=== PATIENT | female | born 1980 | race Asian ===

== ENCOUNTER 2020-12-06 17:19 | Outpatient (REF) | payer BC, SELFPAY ==
[2020-12-06 18:06] LABS: MANUAL DIFF FLAG NO
[2020-12-06 18:08] LABS: Basophils Percent Auto 0.3 % (0-2); Eosinophils Absolute Auto 0.2 X10*3/uL (0.0-0.4); Eosinophils Percent Auto 2.1 % (0-4); Hematocrit 31.5 % (37-47); Hemoglobin 9.6 g/dl (12.0-16.0); Imm Gran Abs Auto 0.03 X10*3/uL (0.00-0.03); Imm Gran Pct Auto 0.3 % (0.0-0.4); Lymphocytes Absolute Auto 2.2 X10*3/uL (1.2-4.9); Lymphocytes Percent Auto 24.8 % (20-40); Mean Corpuscular HGB Conc 30.5 g/dl (31.0-35.0); Mean Corpuscular Hemoglobin 24.6 pg (27.0-33.0); Mean Corpuscular Volume 80.8 fL (80-98); Mean Platelet Volume 8.8 fL (9.4-12.3); Monocytes Absolute Auto 0.5 X10*3/uL (0.1-1.2); Monocytes Percent Auto 6.1 % (2-11); Neutrophils Absolute Auto 5.9 X10*3/uL (2.0-8.3); Neutrophils Percent Auto 66.4 % (45-73); Platelet Count 370 X10*3/uL (160-400); White Blood Count 8.9 X10*3/uL (4.8-10.8)
[2020-12-06 18:33] LABS: Alanine Aminotransferase 21 U/L (0-31); Alkaline Phosphatase 93 U/L (39-117); Anion Gap 15 (12-20); Aspartate Amino Transferase 23 U/L (5-31); Bilirubin Total 0.3 mg/dL (0.0-1.0); Blood Urea Nitrogen 10 mg/dL (9-16); Calcium 8.9 mg/dL (8.4-10.2); Carbon Dioxide 23 mmol/L (22-29); Chloride 105 mmol/L (96-108); Estimated Glomerular Filt Rate > 60; Glucose Random 94 mg/dL (60-115); Potassium 4.1 mmol/L (3.3-5.1); Sodium 139 mmol/L (135-145); Total Protein 7.6 g/dL (6.5-8.0)
[2020-12-06 18:41] LABS: Rheumatoid Factor < 15.0 IU/mL (<15.0)
[2020-12-06 18:50] LABS: Thyroid Stimulating Hormone 6.09 uIU/mL (0.32-4.0)
[2020-12-06 18:54] LABS: Vitamin B12 774 pg/mL (200-900)
[2020-12-07 03:29] LABS: Estimated Average Glucose 114 mg/dL; Hemoglobin A1c % 5.6 %
[2020-12-11 15:00] LABS: ANA Pattern 2 Nuclear, Homogeneous; Anti Nuclear Antibody Pattern Nuclear, Speckled; Anti Nuclear Antibody Screen POSITIVE (NEGATIVE)
== END 2020-12-06 17:20 | disposition home or self-care (01) ==
LOC: HO.LAB 17:19
PROVIDERS: PCP Internal Medicine; Visit Provider Internal Medicine
DX: R53.83 Other fatigue (principal); I10 Essential (primary) hypertension; E03.9 Hypothyroidism, unspecified; D64.9 Anemia, unspecified; R73.03 Prediabetes; E53.8 Deficiency of other specified B group vitamins
CPT/HCPCS: 36415; 80053; 82607; 83036; 84439; 84443; 85025; 86038; 86039; 86140; 86431

== ENCOUNTER 2021-03-27 17:35 | Outpatient (REF) | payer BC, SELFPAY ==
--- NOTE | ~2021-03-27 | XR_ITS ---
EXAMINATION: XR KNEE, LEFT CLINICAL INFORMATION: Left knee pain status post fall COMPARISON: None TECHNIQUE: Three views of the left knee. FINDINGS: No fracture or subluxation. Compartmental joint spaces are maintained. No joint effusion. The soft tissues are unremarkable. XR/XR knee LT 3V IMPRESSION: Normal left knee.
== END 2021-03-27 17:36 | disposition home or self-care (01) ==
LOC: HO.XRAY 17:35
PROVIDERS: PCP Internal Medicine; Visit Provider Internal Medicine
DX: M25.562 Pain in left knee (principal); Z91.81 History of falling
CPT/HCPCS: 73562

== ENCOUNTER → 2021-04-11 08:16 | Outpatient (REF) | payer BC, SELFPAY ==
--- NOTE | 2021-04-11 08:20 | CA_ITS ---
Acquisition Time: 2021-04-11 08:36:44 Total Exercise Time: 00:04:01 Test Indications: Dyspnea Medications: THYROID MED LISINOPRIL Protocol: BORA Max HR: 169 BPM 94% of Pred: 178 BPM Max BP: 138/076 mmHG Max Work Load: 5.8 METS PT EXERCISED ON STD BORA PROTOCOL FOR 4 MIN INTO STAGE 2. MAX HR 166-93%MAX. NO CP. SOB AT MAX EXERCISE. NO EKG CHANGES. LIMITED EXERCISE TOLERANCE.CLINICALLY AND ELEC NEG. Referred By: Dante Carney Overread By: GEORGI CARNEY MD
[2021-04-11 10:51] LABS: MANUAL DIFF FLAG NO
[2021-04-11 11:43] LABS: Basophils Percent Auto 0.5 % (0-2); Eosinophils Absolute Auto 0.2 X10*3/uL (0.0-0.4); Eosinophils Percent Auto 2.1 % (0-4); Hematocrit 31.1 % (37.0-47.0); Hemoglobin 9.6 g/dl (12.0-16.0); Imm Gran Abs Auto 0.03 X10*3/uL (0.00-0.03); Imm Gran Pct Auto 0.4 % (0.0-0.4); Lymphocytes Absolute Auto 1.9 X10*3/uL (1.2-4.9); Lymphocytes Percent Auto 23.6 % (20-40); Mean Corpuscular HGB Conc 30.9 g/dl (31.0-35.0); Mean Corpuscular Hemoglobin 24.7 pg (27.0-33.0); Mean Corpuscular Volume 80.2 fL (80.0-98.0); Mean Platelet Volume 8.9 fL (9.4-12.3); Monocytes Absolute Auto 0.5 X10*3/uL (0.1-1.2); Monocytes Percent Auto 5.9 % (2-11); Neutrophils Absolute Auto 5.4 x10*3/uL (2.0-8.3); Neutrophils Percent Auto 67.5 % (45-73); Platelet Count 408 X10*3/uL (160-400); Red Blood Count 3.88 X10*6/uL (4.20-5.50); Red Cell Distribution Width 14.9 % (11.0-16.0)
[2021-04-11 12:09] LABS: Alanine Aminotransferase 30 U/L (0-31); Albumin Level 3.9 g/dL (3.5-5.0); Alkaline Phosphatase 98 U/L (39-117); Anion Gap 11 (12-20); Aspartate Amino Transferase 26 U/L (5-31); Bilirubin Total 0.3 mg/dL (0.0-1.0); Blood Urea Nitrogen 9 mg/dL (9-16); Calcium 8.8 mg/dL (8.4-10.2); Carbon Dioxide 25 mmol/L (22-29); Chloride 106 mmol/L (96-108); Cholesterol 179 mg/dL; Estimated Glomerular Filt Rate > 60; Glucose Fasting 100 mg/dL (60-99); HDL Cholesterol 49 mg/dL; Iron 35 mcg/dL (30-160); LDL Cholesterol Calculated 114 mg/dl; Percent Iron Saturation 9 % (15-50); Potassium 4.8 mmol/L (3.3-5.1); Sodium 137 mmol/L (135-145); Total Iron Binding Capacity 386 mcg/dL (228-428); Total Protein 7.3 g/dL (6.5-8.0); Triglycerides 81 mg/dL; Unsaturated Iron Binding 351 ug/dL
[2021-04-11 12:14] LABS: Free T4 (Free Thyroxine) 1.06 ng/dL (0.71-1.85); Thyroid Stimulating Hormone 0.86 uIU/mL (0.32-4.0); Vitamin D 25-OH Total 32.7 ng/mL (>30)
== END ==
LOC: HO.CARD 08:16
PROVIDERS: PCP Internal Medicine; Visit Provider Internal Medicine
DX: R06.02 Shortness of breath (principal)
CPT/HCPCS: 36415; 80053; 80061; 82306; 83540; 84439; 84443; 85025; 93017

== ENCOUNTER 2021-09-10 17:11 | Outpatient (REF) | payer BC, SELFPAY ==
[2021-09-10 17:22] LABS: MANUAL DIFF FLAG NO
[2021-09-10 17:26] LABS: Basophils Percent Auto 0.4 % (0-2); Eosinophils Absolute Auto 0.3 X10*3/uL (0.0-0.4); Eosinophils Percent Auto 2.5 % (0-4); Hematocrit 32.8 % (37.0-47.0); Hemoglobin 10.1 g/dl (12.0-16.0); Imm Gran Abs Auto 0.06 X10*3/uL (0.00-0.03); Imm Gran Pct Auto 0.6 % (0.0-0.4); Lymphocytes Percent Auto 27.9 % (20-40); Mean Corpuscular HGB Conc 30.8 g/dl (31.0-35.0); Mean Corpuscular Hemoglobin 23.6 pg (27.0-33.0); Mean Corpuscular Volume 76.6 fL (80.0-98.0); Monocytes Absolute Auto 0.6 X10*3/uL (0.1-1.2); Monocytes Percent Auto 5.8 % (2-11); Neutrophils Absolute Auto 6.7 x10*3/uL (2.0-8.3); Neutrophils Percent Auto 62.8 % (45-73); Platelet Count 383 X10*3/uL (160-400); Red Blood Count 4.28 X10*6/uL (4.20-5.50); Red Cell Distribution Width 16.5 % (11.0-16.0); White Blood Count 10.6 X10*3/uL (4.8-10.8)
[2021-09-10 17:47] LABS: Anion Gap 15 (12-20); Blood Urea Nitrogen 9 mg/dL (9-16); Calcium 9.6 mg/dL (8.4-10.2); Carbon Dioxide 27 mmol/L (22-29); Chloride 101 mmol/L (96-108); Estimated Glomerular Filt Rate > 60; Glucose Random 86 mg/dL (60-115); Iron 40 mcg/dL (30-160); Percent Iron Saturation 9 % (15-50); Potassium 3.8 mmol/L (3.3-5.1); Sodium 139 mmol/L (135-145); Total Iron Binding Capacity 444 mcg/dL (228-428); Unsaturated Iron Binding 404 ug/dL
[2021-09-10 18:07] LABS: Free T4 (Free Thyroxine) 1.17 ng/dL (0.71-1.85); Thyroid Stimulating Hormone 5.01 uIU/mL (0.32-4.0)
== END 2021-09-10 17:12 | disposition home or self-care (01) ==
LOC: HO.LAB 17:11
PROVIDERS: PCP Internal Medicine; Visit Provider Internal Medicine
DX: D64.9 Anemia, unspecified (principal); E03.9 Hypothyroidism, unspecified; I10 Essential (primary) hypertension
CPT/HCPCS: 36415; 80048; 83540; 84439; 84443; 85025

== ENCOUNTER 2021-09-22 10:41 | Outpatient (REF) | payer BC, SELFPAY ==
--- NOTE | ~2021-09-22 | MM_ITS ---
EXAMINATION: MM SCREENING DIGITAL BREAST TOMOSYNTHESIS, BILATERAL CLINICAL INFORMATION: Screening. Asymptomatic. The lifetime risk of breast cancer based on the Tyrer-Cuzick Model is 9%. COMPARISON: Mammography: 09/27/2016 (baseline). TECHNIQUE: Digital breast tomosynthesis is performed in both the craniocaudal and mediolateral oblique views along with computer-aided detection (CAD). Synthesized 2D images are generated from the tomosynthesis. FINDINGS: The breasts are almost entirely fatty (ACR BI-RADS breast composition Category a). Background stromal markings are stable. There is no interval mass or architectural abnormality. Some incidental dermal calcifications are again noted posterior 7:00 left breast. The axilla and skin contours are unremarkable. MM/MM tomosynthesis screening BI IMPRESSION: No mammographic evidence of malignancy. ASSESSMENT: BI-RADS 2: Benign RECOMMENDATION: Routine annual mammography screening. This patient's information was entered into a reminder system with a target due date for their next mammogram.
== END 2021-09-22 10:42 | disposition home or self-care (01) ==
LOC: HO.MAMMO 10:41
PROVIDERS: PCP Internal Medicine; Visit Provider Internal Medicine
DX: Z12.31 Encounter for screening mammogram for malignant neoplasm of breast (principal)
CPT/HCPCS: 77063; 77067

== ENCOUNTER 2022-04-25 15:52 | Outpatient (REF) | payer BC, SELFPAY ==
[2022-04-25 16:15] LABS: MANUAL DIFF FLAG NO
[2022-04-25 17:20] LABS: Basophils Absolute Auto 0.1 X10*3/uL (0.0-0.2); Basophils Percent Auto 0.5 % (0-2); Eosinophils Absolute Auto 0.1 X10*3/uL (0.0-0.4); Eosinophils Percent Auto 1.4 % (0-4); Hematocrit 33.4 % (37.0-47.0); Hemoglobin 10.4 g/dl (12.0-16.0); Imm Gran Abs Auto 0.03 X10*3/uL (0.00-0.03); Imm Gran Pct Auto 0.3 % (0.0-0.4); Lymphocytes Percent Auto 20.5 % (20-40); Mean Corpuscular HGB Conc 31.1 g/dl (31.0-35.0); Mean Corpuscular Hemoglobin 24.4 pg (27.0-33.0); Mean Corpuscular Volume 78.4 fL (80.0-98.0); Mean Platelet Volume 9.1 fL (9.4-12.3); Monocytes Absolute Auto 0.6 X10*3/uL (0.1-1.2); Monocytes Percent Auto 5.8 % (2-11); Neutrophils Percent Auto 71.5 % (45-73); Platelet Count 414 X10*3/uL (160-400); Red Blood Count 4.26 X10*6/uL (4.20-5.50); White Blood Count 9.8 X10*3/uL (4.8-10.8)
[2022-04-25 17:27] LABS: Estimated Average Glucose 105 mg/dL; Hemoglobin A1c % 5.3 %
[2022-04-25 18:10] LABS: Alanine Aminotransferase 25 U/L (0-31); Albumin Level 4.3 g/dL (3.5-5.0); Alkaline Phosphatase 92 U/L (39-117); Anion Gap 13 (12-20); Aspartate Amino Transferase 20 U/L (5-31); Bilirubin Total 0.5 mg/dL (0.0-1.0); Blood Urea Nitrogen 10 mg/dL (9-16); Calcium 9.5 mg/dL (8.4-10.2); Carbon Dioxide 25 mmol/L (22-29); Chloride 98 mmol/L (96-108); Estimated Glomerular Filt Rate > 60; Free T4 (Free Thyroxine) 1.34 ng/dL (0.71-1.85); Glucose Random 89 mg/dL (60-115); Sodium 132 mmol/L (135-145); Total Protein 7.8 g/dL (6.5-8.0)
[2022-04-25 18:38] LABS: Thyroid Stimulating Hormone 1.26 uIU/mL (0.32-4.0); Vitamin D 25-OH Total 36.2 ng/mL (>30)
== END 2022-04-25 15:53 | disposition home or self-care (01) ==
LOC: HO.LAB 15:52
PROVIDERS: PCP Internal Medicine; Visit Provider Internal Medicine
DX: Z00.00 Encounter for general adult medical examination without abnormal findings (principal); E03.9 Hypothyroidism, unspecified; I10 Essential (primary) hypertension; E11.9 Type 2 diabetes mellitus without complications; E55.9 Vitamin D deficiency, unspecified
CPT/HCPCS: 36415; 80053; 82306; 83036; 84439; 84443; 85025

== ENCOUNTER 2022-04-30 09:22 | Outpatient (REF) | payer BC, SELFPAY ==
[2022-04-30 10:28] LABS: Cholesterol 174 mg/dL; HDL Cholesterol 41 mg/dL; LDL Cholesterol Calculated 116 mg/dl; Triglycerides 89 mg/dL
== END 2022-04-30 09:23 | disposition home or self-care (01) ==
LOC: HO.LAB 09:22
PROVIDERS: PCP Internal Medicine; Visit Provider Internal Medicine
DX: Z00.00 Encounter for general adult medical examination without abnormal findings (principal); E03.9 Hypothyroidism, unspecified; E55.9 Vitamin D deficiency, unspecified
CPT/HCPCS: 36415; 80061

== ENCOUNTER 2022-05-21 13:41 | Outpatient (REF) | payer BC, SELFPAY ==
[2022-05-22 19:18] LABS: HPV mRNA E6/E7 rflx Not Detected (Not Detected)
== END 2022-05-21 13:42 | disposition home or self-care (01) ==
LOC: HO.LNP 13:41
PROVIDERS: PCP Internal Medicine; Visit Provider Advanced Practice Midwife
DX: Z01.419 Encounter for gynecological examination (general) (routine) without abnormal findings (principal); Z11.51 Encounter for screening for human papillomavirus (HPV)
CPT/HCPCS: 87624; 88142

== ENCOUNTER 2022-08-21 10:56 | Outpatient (REF) | payer BC, SELFPAY ==
--- NOTE | ~2022-08-21 | US_ITS ---
EXAMINATION: US ABDOMEN COMPLETE CLINICAL INFORMATION: Right upper quadrant abdominal pain. COMPARISON: None available. TECHNIQUE: Real-time imaging of the abdominal viscera. FINDINGS: PANCREAS: Normal. ABDOMINAL AORTA: The proximal, mid, and distal segments are normal in caliber. INFERIOR VENA CAVA: Visualized portions are normal. LIVER: There are echogenic vascular calcifications seen. Otherwise is homogeneous echotexture of the liver. The liver is normal in size. The liver contour is normal. No focal hepatic lesion. There is no intrahepatic biliary duct dilatation seen. GALLBLADDER: Gallbladder wall thickness measures 0.34 cm. The gallbladder is physiologically distended. Multiple mobile gallstones are present. No evidence of gallbladder wall thickening or pericholecystic fluid. There is mild gallbladder wall tenderness. COMMON BILE DUCT: Normal in caliber measuring 0.6 cm in diameter. RIGHT KIDNEY: There are multiple echogenic foci non shadowing and non twinkle. No hydronephrosis. No renal calculi or focal parenchymal lesions. The kidney measures 10.6 cm in maximum dimension. LEFT KIDNEY: There are multiple echogenic foci non shadowing and non twinkle. No hydronephrosis. No renal calculi or focal parenchymal lesions. The kidney measures 11.3 cm in maximum dimension. SPLEEN: Normal. The spleen measures 9.8 cm in maximum dimension. FREE FLUID: None. US/US abdomen complete IMPRESSION: 1. Cholelithiasis with mild gallbladder wall thickening and tenderness in right upper quadrant suggestive of cholecystitis. Correlate with HIDA study and clinical exam. 2. Bilateral multiple echogenic foci non shadowing and non twinkle artifact in both kidneys. No echogenic stones or hydronephrosis. 3. Rest of the abdominal ultrasound is unremarkable.
== END 2022-08-21 10:57 | disposition home or self-care (01) ==
LOC: HO.HMGCX 10:56
PROVIDERS: Visit Provider Internal Medicine
DX: R10.11 Right upper quadrant pain (principal)
CPT/HCPCS: 76700

== ENCOUNTER 2022-09-02 10:03 | Outpatient (REF) | payer BC, SELFPAY ==
[2022-09-02 11:01] LABS: MANUAL DIFF FLAG NO
[2022-09-02 11:45] LABS: Basophils Percent Auto 0.4 % (0-2); Eosinophils Absolute Auto 0.4 X10*3/uL (0.0-0.4); Eosinophils Percent Auto 4.8 % (0-4); Hematocrit 36.1 % (37.0-47.0); Hemoglobin 11.3 g/dl (12.0-16.0); Imm Gran Abs Auto 0.02 X10*3/uL (0.00-0.03); Imm Gran Pct Auto 0.2 % (0.0-0.4); Lymphocytes Absolute Auto 1.9 X10*3/uL (1.2-4.9); Lymphocytes Percent Auto 20.6 % (20-40); Mean Corpuscular HGB Conc 31.3 g/dl (31.0-35.0); Mean Corpuscular Volume 79.9 fL (80.0-98.0); Mean Platelet Volume 8.5 fL (9.4-12.3); Monocytes Absolute Auto 0.4 X10*3/uL (0.1-1.2); Monocytes Percent Auto 4.5 % (2-11); Neutrophils Absolute Auto 6.2 x10*3/uL (2.0-8.3); Neutrophils Percent Auto 69.5 % (45-73); Platelet Count 406 X10*3/uL (160-400); Red Blood Count 4.52 X10*6/uL (4.20-5.50); Red Cell Distribution Width 14.2 % (11.0-16.0)
[2022-09-02 12:14] LABS: Alanine Aminotransferase 17 U/L (0-31); Albumin Level 4.1 g/dL (3.5-5.0); Alkaline Phosphatase 85 U/L (39-117); Anion Gap 12 (12-20); Aspartate Amino Transferase 16 U/L (5-31); Bilirubin Direct 0.1 mg/dL (0.0-0.5); Bilirubin Total 0.5 mg/dL (0.0-1.0); Carbon Dioxide 28 mmol/L (22-29); Chloride 101 mmol/L (96-108); Potassium 4.1 mmol/L (3.3-5.1); Sodium 137 mmol/L (135-145); Total Protein 7.4 g/dL (6.5-8.0)
== END 2022-09-02 10:04 | disposition home or self-care (01) ==
LOC: HO.LAB 10:03
PROVIDERS: PCP Internal Medicine; Referring Provider Internal Medicine; Visit Provider Surgery
DX: K80.50 Calculus of bile duct without cholangitis or cholecystitis without obstruction (principal); Z79.899 Other long term (current) drug therapy
CPT/HCPCS: 36415; 80051; 80076; 85025

== ENCOUNTER 2022-09-06 10:51 | Day surgery (SDC) | payer BC, SELFPAY ==
--- NOTE | 2022-09-05 11:55 | HO.ANESPROP2 ---
Documented by User: Genevieve Landry NP 09/05/22 11:56 HPI - Anesthesia Eval Consult details Narrative: 42yo F for Cholecystectomy Laparoscopic poss open PMFSH Active Problems Active Problems: All Active Problems (Updated 06/04/22 @ 10:31 by Niurka Pinedo CNM) Biliary colic (Acute) Cervical cancer screening (Acute) Well woman exam with routine gynecological exam (Acute) Family history of malignant neoplasm of ovary in first degree relative (Acute) Abdominal bloating (Acute) Pelvic pain (Acute) Past Medical History Medical History (Updated 06/04/22 @ 10:31 by Niurka Pinedo CNM) Hypertension Family History Family History (Updated 05/21/22 @ 13:52 by SHARIF Gleason) Mother Hypertension Hypercholesterolemia Migraine Sister Ovarian cancer Surgical History Surgical History (Updated 09/06/22 @ 11:01 by Ruthie Moreland) H/O section Social History Social History (Updated 09/02/22 @ 10:23 by SHARIF Choudhary) Alcohol intake: current Alcohol intake frequency: does not drink Patient Tobacco Use Status: Never used Tobacco Use of substances other than those prescribed or required for medical reasons: No Are you DNR?: No Advance Directives: No Advance Directives Information Provided: Yes Meds Allergies Allergy/AdvReac Type Severity Reaction Status Date / Time No Known Allergies Allergy Verified 09/06/22 11:02 Home Medications Medication Instructions Recorded Confirmed Last Taken Type hydrochlorothiazide 25 mg tablet 25 mg PO DAILY 05/21/22 09/06/22 Unknown History levothyroxine 88 mcg tablet 88 mcg PO DAILY 05/21/22 09/06/22 Unknown History Exam Exam Date and Time: September 05, 2022 1155 Pertinent Lab Results Pertinent Lab Results: Laboratory Tests 04/25/22 09/02/22 09/02/22 16:13 11:00 11:00 WBC 9.0 Hgb 11.3 L Hct 36.1 L Plt Count 406 H Sodium 137 Potassium 4.1 Chloride 101 Carbon Dioxide 28 BUN 10 Creatinine 0.86 Narrative Narrative: Exercise stress 2020 Protocol: BORA ? Max HR: 169 BPM? 94% of? Pred: 178 BPM Max BP: 138/076 mmHG Max Work Load: 5.8 METS ? PT EXERCISED ON STD BORA PROTOCOL FOR 4 MIN INTO STAGE 2. MAX HR ? 166-93%MAX. NO CP. SOB AT MAX EXERCISE. ?NO EKG CHANGES. LIMITED EXERCISE TOLERANCE.CLINICALLY AND ELEC NEG. Assessment and Plan Assessment Anesthesia Assessment: Chart Reviewed Documented by User: Billy Hedrick MD 09/06/22 11:41 PMFSH Past Medical History Medical History (Updated 06/04/22 @ 10:31 by Niurka Pinedo CNM) Hypertension Family History Family History (Updated 05/21/22 @ 13:52 by Alistair Villalobos Alejandro) Mother Hypertension Hypercholesterolemia Migraine Sister Ovarian cancer Family history of problems with anesthesia: No Surgical History Surgical History (Updated 09/06/22 @ 11:01 by Ruthie Moreland) H/O section History of Problems with Anesthesia: No Social History Social History (Updated 09/02/22 @ 10:23 by Gwen Cox Alejandro) Alcohol intake: current Alcohol intake frequency: does not drink Patient Tobacco Use Status: Never used Tobacco Use of substances other than those prescribed or required for medical reasons: No Are you DNR?: No Advance Directives: No Advance Directives Information Provided: Yes Meds Allergies Allergy/AdvReac Type Severity Reaction Status Date / Time No Known Allergies Allergy Verified 09/06/22 11:02 Home Medications Medication Instructions Recorded Confirmed Last Taken Type hydrochlorothiazide 25 mg tablet 25 mg PO DAILY 05/21/22 09/06/22 Unknown History levothyroxine 88 mcg tablet 88 mcg PO DAILY 05/21/22 09/06/22 Unknown History Exam Airway Mallampati Class: II TM Dist: >3cm Neck ROM: Full Heart: rrr Lungs: cta Assessment and Plan Assessment Anesthesia Assessment: Anesthesia Plan Discussed Final Anesthetic Review Family History of Problems with Anesthesia: No History of Problems with Anesthesia: No NPO: Yes ASA Class: II Final Preanesthetic Review: No Changes in Pt Med Stat, Meds/Allgs Chart Reviewed, Consent Obtained/Reviewed and Anes Risks/Benef Reviewed Patient Risk: Low Procedure Risk: Intermediate Anesthetic Plan Anesthetic Plan: GA Disposition: Standard PACU
--- NOTE | 2022-09-05 13:58 | MHC.SHP ---
Pre-Procedural Eval Section A Date of Service: 09/06/22 The patient is an INPATIENT: No Changes since office visit: No Cold of Flu in the past 2 weeks, No New Medical Problems, No Changes in Medication and No Patient answered all questions The History & Physical has been completed within 30 days and I have reviewed it.: Yes Section B Chief Complaint: Calculus of bile duct without cholangitis or magdy Allergies: Allergies Allergy/AdvReac Type Severity Reaction Status Date / Time No Known Allergies Allergy Verified 09/02/22 10:22 Plan I have reviewed the history and physical and performed a pertinent physical examination on my patient. No changes have occurred unless specified. Time Spent With Patient Time: Total time managing care of this patient today ____ minutes.
[2022-09-06] VITALS (10 sets, daily range): BP systolic 115–130; BP diastolic 66–79; PULSE 87–106; RESP 14–16; TEMP 36.6–37; O2SAT 95–99; BMI 27.6
[2022-09-06] MEDS: Lactated Ringers 1,000 ML 100 ML IVCONT (11:29)
[2022-09-06 11:30] LABS: UPreg QC Valid YES; Urine Pregnancy NEGATIVE (NEGATIVE)
--- NOTE | 2022-09-06 13:42 | W.PM.OPN ---
Operative Note Operative Note Date of Service: 09/06/22 Narrative: Preoperative diagnosis: [] Recurrence biliary colic Postop diagnosis: [] Same Procedure [] laparoscopic cholecystectomy Surgeon: [] Brendan Preschool Teacher'S Assistant: [] elijah Sánchez Type of Anesthesia: [] General Indication for surgery: [] Symptomatic gallstones Findings: [] Corpulent abdomen. Dense and extensive omental adhesions to the gallbladder. Patient is brought to the operating room, placed on the operating table in the supine position, and after an adequate level of general anesthesia was induced, the patient's abdomen was prepped and draped in usual sterile fashion. Using a supraumbilical curvilinear incision, Rodriguez technique was used to insufflate the abdominal cavity to 15 mm of CO2. Upper midline and right sub costal ports were placed under direct laparoscopic view, and the patient was placed in reverse Trendelenburg position, tilted to the left. Dense omental adhesions were taken off the gallbladder and the liver. Hilum was then approached after the gallbladder was retracted superiorly and laterally. Common bile duct was identified and preserved throughout the procedure. Cystic artery and cystic duct or each identified, circumferentially skeletonized , and each traced directly into the gallbladder and critical view obtained. Each was clipped proximally x2, distally x1, and transected. Gallbladder which was moderately intrahepatic was cauterized from the gallbladder fossa using electro Bovie. Specimen was placed in an Endo-Catch bag, and retrieved through the umbilical port. Abdominal cavity was copiously irrigated, and secured hemostasis. All ports removed under direct laparoscopic view. Wounds were closed in the following manner; umbilical wound has fascia reapproximated using interrupted 0 Vicryl sutures. Skin was were closed using subcuticular 4-0 Vicryl sutures followed by Steri-Strips and sterile dressings. Wounds were infiltrated with a combination of 0.5% Marcaine and 1% lidocaine. Sponge, needle, and instrument counts were reported to be correct. Patient tolerated the procedure well and emerged from anesthesia stable condition. EBL minimal
[2022-09-06] MEDS: fentaNYL citrate/PF 100 MCG/2 ML VIAL 25 MCG IVPUSH ×4 (13:58→14:13)
[2022-09-06] MEDS: oxyCODONE HCl Immed Release 5 MG TABLET PO (14:01)
--- NOTE | 2022-09-06 14:16 | P.CONAN_ITS ---
HPI - Anesthesia Eval Consult details Narrative: right bka PMFSH Active Problems Active Problems: All Active Problems (Updated 09/06/22 @ 11:01 by Ruthie Moreland) Pelvic pain (Acute) Abdominal bloating (Acute) Family history of malignant neoplasm of ovary in first degree relative (Acute) Well woman exam with routine gynecological exam (Acute) Cervical cancer screening (Acute) Biliary colic (Acute) Past Medical History Medical History (Updated 06/04/22 @ 10:31 by Niurka Pinedo CNM) Hypertension Family History Family History (Updated 05/21/22 @ 13:52 by Alistair Villalobos [facility]) Mother Hypertension Hypercholesterolemia Migraine Sister Ovarian cancer Family history of problems with anesthesia: No Surgical History Surgical History (Updated 09/06/22 @ 11:01 by Ruthie Moreland) H/O section History of Problems with Anesthesia: No Social History Social History (Updated 09/02/22 @ 10:23 by Gwen Cox [facility]) Alcohol intake: current Alcohol intake frequency: does not drink Patient Tobacco Use Status: Never used Tobacco Use of substances other than those prescribed or required for medical reasons: No Are you DNR?: No Advance Directives: No Advance Directives Information Provided: Yes Meds Allergies Allergy/AdvReac Type Severity Reaction Status Date / Time No Known Allergies Allergy Verified 09/06/22 11:02 Active Medications: Current Medications Lactated Ringer's (Lr) 1,000 mls @ 100 mls/hr IVCONT .Q10H DENNIS Last Admin: 09/06/22 11:29 Dose: 100 mls/hr Home Medications Medication Instructions Recorded Confirmed Last Taken Type hydrochlorothiazide 25 mg tablet 25 mg PO DAILY 05/21/22 09/06/22 Unknown His tory levothyroxine 88 mcg tablet 88 mcg PO DAILY 05/21/22 09/06/22 Unknown History Exam Exam Date and Time: September 06, 2022 1416 Height,Weight and Vital Signs: Height 5 ft 4 in Weight 73.028 kg Last Vital Signs Temp 98.6 F 09/06/22 13:53 Pulse 93 09/06/22 14:13 Resp 16 09/06/22 14:13 BP 115/66 09/06/22 14:08 Pulse Ox 95 09/06/22 14:13 O2 Del Method Room Air 09/06/22 14:13 Pertinent Lab Results Pertinent Lab Results: Laboratory Tests 09/06/22 11:00 Urine Test NEGATIVE Airway Mallampati Class: II TM Dist: >3cm Neck ROM: Limited Heart: rrr Lungs: cta Assessment and Plan Assessment Anesthesia Assessment: Anesthesia Plan Discussed and Chart Reviewed Final Anesthetic Review Family History of Problems with Anesthesia: No History of Problems with Anesthesia: No NPO: Yes ASA Class: IV Final Preanesthetic Review: No Changes in Pt Med Stat and Anes Risks/Benef Reviewed Patient Risk: High Procedure Risk: Intermediate Anesthetic Plan Anesthetic Plan: Regional Block and Agree w/ Assess. and Plan Disposition: Standard PACU
== END 2022-09-06 14:45 | disposition home or self-care (01) ==
PROVIDERS: Nurse Practitioner; PCP Internal Medicine; Visit Provider Surgery
PROC: 0FT44ZZ Resection of Gallbladder, Percutaneous Endoscopic Approach (ICD-10-PCS; CPT 47562; principal; 2022-09-06 12:20)
DX: K80.10 Calculus of gallbladder with chronic cholecystitis without obstruction (principal); K82.8 Other specified diseases of gallbladder; I10 Essential (primary) hypertension; Z79.899 Other long term (current) drug therapy
CPT/HCPCS: 47562; 49329; 81025; 88304; J0131; J0690; J1100; J1885; J2405; J2550; J3010

== ENCOUNTER → 2022-09-12 10:32 | Outpatient (BNVA) | payer BC, SELFPAY | PROVIDERS: PCP Internal Medicine; Visit Provider Surgery | DX: Z13.89 Encounter for screening for other disorder (principal) ==

== ENCOUNTER → 2022-10-01 12:54 | Outpatient (BNVA) | payer BC, SELFPAY | PROVIDERS: PCP Internal Medicine; Referring Provider Internal Medicine; Visit Provider Surgery ==

== ENCOUNTER 2023-01-23 16:45 | Outpatient (REF) | payer BC, SELFPAY ==
[2023-01-23 17:03] LABS: MANUAL DIFF FLAG NO
[2023-01-23 18:12] LABS: Basophils Absolute Auto 0.1 X10*3/uL (0.0-0.2); Basophils Percent Auto 1.1 % (0-2); Eosinophils Absolute Auto 0.1 X10*3/uL (0.0-0.4); Hemoglobin 9.9 g/dl (12.0-16.0); Imm Gran Abs Auto 0.02 X10*3/uL (0.00-0.03); Imm Gran Pct Auto 0.3 % (0.0-0.4); Lymphocytes Absolute Auto 1.8 X10*3/uL (1.2-4.9); Lymphocytes Percent Auto 27.4 % (20-40); Mean Corpuscular HGB Conc 31.9 g/dl (31.0-35.0); Mean Corpuscular Hemoglobin 26.9 pg (27.0-33.0); Mean Corpuscular Volume 84.2 fL (80.0-98.0); Mean Platelet Volume 9.3 fL (9.4-12.3); Monocytes Absolute Auto 0.5 X10*3/uL (0.1-1.2); Monocytes Percent Auto 7.4 % (2-11); Neutrophils Absolute Auto 4.1 x10*3/uL (2.0-8.3); Neutrophils Percent Auto 61.8 % (45-73); Platelet Count 328 X10*3/uL (160-400); Red Blood Count 3.68 X10*6/uL (4.20-5.50); Red Cell Distribution Width 13.8 % (11.0-16.0); White Blood Count 6.6 X10*3/uL (4.8-10.8)
[2023-01-23 18:30] LABS: Alanine Aminotransferase 11 U/L (0-31); Albumin Level 3.8 g/dL (3.5-5.0); Alkaline Phosphatase 56 U/L (39-117); Anion Gap 12 (12-20); Aspartate Amino Transferase 17 U/L (5-31); Bilirubin Total 0.4 mg/dL (0.0-1.0); Blood Urea Nitrogen 7 mg/dL (9-16); Calcium 9.2 mg/dL (8.4-10.2); Carbon Dioxide 23 mmol/L (22-29); Chloride 107 mmol/L (96-108); Estimated Glomerular Filt Rate > 60; Glucose Random 78 mg/dL (60-115); Potassium 3.9 mmol/L (3.3-5.1); Sodium 138 mmol/L (135-145); Total Protein 6.9 g/dL (6.5-8.0)
[2023-01-23 18:47] LABS: Thyroid Stimulating Hormone 1.72 uIU/mL (0.32-4.0)
== END 2023-01-23 16:46 | disposition home or self-care (01) ==
LOC: HO.LAB 16:45
PROVIDERS: PCP Internal Medicine; Visit Provider Internal Medicine
DX: E03.9 Hypothyroidism, unspecified (principal)
CPT/HCPCS: 36415; 80053; 84439; 84443; 85025

== ENCOUNTER 2023-01-29 16:50 | Outpatient (REF) | payer BC, SELFPAY ==
[2023-01-29 17:03] LABS: MANUAL DIFF FLAG NO
[2023-01-29 17:42] LABS: Basophils Absolute Auto 0.1 X10*3/uL (0.0-0.2); Basophils Percent Auto 0.7 % (0-2); Eosinophils Absolute Auto 0.1 X10*3/uL (0.0-0.4); Eosinophils Percent Auto 1.9 % (0-4); Hemoglobin 10.8 g/dl (12.0-16.0); Imm Gran Abs Auto 0.03 X10*3/uL (0.00-0.03); Imm Gran Pct Auto 0.4 % (0.0-0.4); Lymphocytes Absolute Auto 2.3 X10*3/uL (1.2-4.9); Mean Corpuscular HGB Conc 31.8 g/dl (31.0-35.0); Mean Corpuscular Hemoglobin 26.6 pg (27.0-33.0); Mean Corpuscular Volume 83.7 fL (80.0-98.0); Mean Platelet Volume 9.3 fL (9.4-12.3); Monocytes Absolute Auto 0.4 X10*3/uL (0.1-1.2); Platelet Count 325 X10*3/uL (160-400); Red Blood Count 4.06 X10*6/uL (4.20-5.50); Red Cell Distribution Width 13.8 % (11.0-16.0)
[2023-01-29 18:52] LABS: Cholesterol 164 mg/dL (<200); Iron 73 mcg/dL (30-160); Percent Iron Saturation 24 % (15-50); Total Iron Binding Capacity 301 mcg/dL (228-428); Unsaturated Iron Binding 228 ug/dL
[2023-01-29 19:16] LABS: Vitamin B12 1836 pg/mL (200-900)
== END 2023-01-29 16:51 | disposition home or self-care (01) ==
LOC: HO.LAB 16:50
PROVIDERS: PCP Internal Medicine; Visit Provider Internal Medicine
DX: D64.9 Anemia, unspecified (principal); E03.9 Hypothyroidism, unspecified; R63.4 Abnormal weight loss
CPT/HCPCS: 36415; 82465; 82607; 83540; 85025

== ENCOUNTER 2023-07-18 09:42 | Outpatient (REF) | payer BC, SELFPAY ==
[2023-07-18 09:54] LABS: MANUAL DIFF FLAG NO
[2023-07-18 10:49] LABS: Estimated Average Glucose 94 mg/dL; Hemoglobin A1c % 4.9 % (<6.0)
[2023-07-18 10:50] LABS: Basophils Percent Auto 0.9 % (0-2); Eosinophils Absolute Auto 0.2 X10*3/uL (0.0-0.4); Eosinophils Percent Auto 3.7 % (0-4); Hematocrit 32.3 % (37.0-47.0); Hemoglobin 10.3 g/dl (12.0-16.0); Imm Gran Abs Auto 0.01 X10*3/uL (0.00-0.03); Imm Gran Pct Auto 0.2 % (0.0-0.4); Lymphocytes Absolute Auto 1.6 X10*3/uL (1.2-4.9); Lymphocytes Percent Auto 33.9 % (20-40); Mean Corpuscular HGB Conc 31.9 g/dl (31.0-35.0); Mean Corpuscular Hemoglobin 27.7 pg (27.0-33.0); Mean Corpuscular Volume 86.8 fL (80.0-98.0); Mean Platelet Volume 9.4 fL (9.4-12.3); Monocytes Absolute Auto 0.3 X10*3/uL (0.1-1.2); Monocytes Percent Auto 6.3 % (2-11); Neutrophils Absolute Auto 2.5 x10*3/uL (2.0-8.3); Platelet Count 287 X10*3/uL (160-400); Red Blood Count 3.72 X10*6/uL (4.20-5.50); Red Cell Distribution Width 13.1 % (11.0-16.0); White Blood Count 4.6 X10*3/uL (4.8-10.8)
[2023-07-18 11:23] LABS: Alanine Aminotransferase 22 U/L (0-31); Albumin Level 3.9 g/dL (3.5-5.0); Alkaline Phosphatase 53 U/L (39-117); Anion Gap 12 (12-20); Aspartate Amino Transferase 21 U/L (5-31); Bilirubin Total 0.3 mg/dL (0.0-1.0); Blood Urea Nitrogen 13 mg/dL (9-16); Calcium 9.1 mg/dL (8.4-10.2); Carbon Dioxide 26 mmol/L (22-29); Chloride 107 mmol/L (96-108); Cholesterol 174 mg/dL (<200); Estimated Glomerular Filt Rate > 60; Glucose Fasting 84 mg/dL (60-99); HDL Cholesterol 64 mg/dL (>40); LDL Cholesterol Calculated 102 mg/dL (<100); Sodium 141 mmol/L (135-145); Total Protein 7.3 g/dL (6.5-8.0); Triglycerides 41 mg/dL (<150)
[2023-07-18 11:48] LABS: Thyroid Stimulating Hormone 2.28 uIU/mL (0.32-4.0)
== END 2023-07-18 09:43 | disposition home or self-care (01) ==
LOC: HO.LAB 09:42
PROVIDERS: PCP Internal Medicine; Visit Provider Internal Medicine
DX: I10 Essential (primary) hypertension (principal); E03.9 Hypothyroidism, unspecified; D64.9 Anemia, unspecified
CPT/HCPCS: 36415; 80053; 80061; 83036; 84439; 84443; 85025

== ENCOUNTER 2024-10-25 09:28 | Outpatient (AMB) | payer BC, SELFPAY ==
--- NOTE | 2024-10-25 09:27 | A.OFFPC_ITS ---
Vital Signs 10/25/24 09:31 Height 5 ft 4 in Weight 152 lb BMI 26.1 BP 122/80 Blood Pressure Location Lt brachial Position Sitting Pulse 88 Pulse Source Pulse Oximeter Temp 98.7 F Temp Source Axillary Pulse Oximetry (%) 99 Oxygen Delivery Method Room Air Intake Visit Reasons: Annual - see comments Integrated Logistics Support Manager Required: No Accompanied by: Self / Same As Patient Allergies No Known Allergies Allergy (Verified 10/25/24 09:28) Tobacco use date assessed: 10/25/24 Dental Screening Dental Screen Date: 10/25/24 Did you have a dental visit in the last 12 months?: No Did you have a dental problem in the last 6 months where you did not have access to dental care?: No PFSH Medical History (Updated 10/25/24 @ 10:12 by Darell Gamboa MD) Obesity Hypertension Surgical History History of laparoscopic cholecystectomy (09/06/22) H/O section Family History (Updated 10/25/24 @ 09:37 by Consuelo Mei MA) Mother Hypertension Hypercholesterolemia Migraine Sister Ovarian cancer Social History Housing: House Alcohol intake: current Alcohol intake frequency: does not drink Patient Tobacco Use Status: Never used Tobacco e-Cigarette/Vaping Use: Never Used service: No Current occupational status: employed Cognitive needs: No Hearing needs: No Vision needs: Yes (reading glassses) Female Reproductive History Menstrual Age of Menarche: 12 Questionnaire PHQ-9 Over the last 2 weeks, how often have you been bothered by any of the following problems? 1. Little interest or pleasure in doing things: not at all 2. Feeling down, depressed, or hopeless: not at all 3. Trouble falling or staying asleep, or sleeping too much: not at all 4. Feeling tired or having little energy: not at all 5. Poor appetite or overeating: not at all 6. Feeling bad about yourself - or that you are a failure or have let yourself or your family down: not at all 7. Trouble concentrating on things, such as reading the newspaper or watching television: not at all 8. Moving or speaking so slowly that other people could have noticed. Or the opposite - being so fidgety or restless that you have been moving around a lot more than usual: not at all Source: Developed by Drs. Apolinar Butler, Manuel Parra and colleagues, with an educational hunter from [employer]. Thrive Questionnaire Date Thrive assessed: 10/25/24 I am a: Patient Within the past 12 months, did the food you bought not last and you didn't have the money to get more?: Never true Within the past 12 months, did you worry whether your food would run out before you got money to buy more?: Never true Do you have trouble paying for medicines?: No Do you have trouble getting transportation to medical appointments?: No Do you have trouble paying your heating and electricity bill?: No Do you have trouble taking care of your child, family member or friend?: No Do you have trouble with day-to-day activities such as bathing, preparing meals, shopping, managing finances, etc.?: No Are you currently unemployed and looking for a job?: No Are you interested in more education?: No THRIVE Score: 0 AUDIT C Alcohol Use Questionnaire (AUDIT-C) 1. How often do you have a drink containing alcohol?: Monthly or less 2. How many drinks containing alcohol do you have on a typical day when you are drinking?: 1 or 2 3. How often do you have six or more drinks on one occasion?: Less than monthly Total Score: 2 ADAIR-7 AMB Questionnaire ADAIR-7 Date ADAIR - 7 assessed: 10/25/24 Feeling nervous, anxious, or on edge: 0 = Not at all Not being able to stop or control worryin = Not at all Worrying too much about different things: 0 = Not at all Trouble relaxin = Not at all Being so restless that it is hard to sit still: 0 = Not at all Becoming easily annoyed or irritable: 0 = Not at all Feeling afraid as if something awful might happen: 0 = Not at all Total ADAIR-7 score (0-4 normal; 5-9 mild; 10-14 moderate; 15-21 severe): 0 Source: Developed by Drs. Apolinar Butler, Manuel Parra and colleagues, with an educational hunter from [employer]. Physical exam (Primary Care) Vital Signs: Last Vital Signs Temp 98.7 F 10/25/24 09:31 Pulse 88 10/25/24 09:31 BP 122/80 10/25/24 09:31 Pulse Ox 99 10/25/24 09:31 Oxygen Delivery Method Room Air 10/25/24 09:31 BMI result Body Mass Index 26.1 Tobacco/Smoking Status: Tobacco use Status Tobacco use date assessed 10/25/24 10/25/24 09:29 Patient Tobacco Use Status Never used Tobacco 10/25/24 09:29 e-Cigarette/Vaping Use Never Used 10/25/24 09:29 Thrive Assessment: Date of Thrive Assessment Date Thrive assessed 10/25/24 10/25/24 09:29 Coding Level of Care Code New Pt Level 4 (91608) Complex EM visit Add On G2211 Diagnoses Hypertension I10 Annual physical exam Z00.00 Obesity E66.9 Assessment & Plan Assessment & Plan (1) Hypertension: Code(s): I10 - Essential (primary) hypertension Category: Medical Plan: BP in range, continue meds at same dosage (2) Annual physical exam: Code(s): Z00.00 - Encounter for general adult medical examination without abnormal findings Plan: BW, Mammogram, Cologaurd and Audio Visual Tech appt ordered. (3) Obesity: Code(s): E66.9 - Obesity, unspecified Category: Medical Plan: Patient taking GLP-1 analogue from elsewhere. Orders: Orders Thyroid Stimulating Hormone Today I10 - Essential (primary) hypertension UA and rflx microscopic Today I10 - Essential (primary) hypertension Liver Panel Today I10 - Essential (primary) hypertension Basic Metabolic Panel Today I10 - Essential (primary) hypertension Vitamin B12 and Folate Today I10 - Essential (primary) hypertension Vitamin D 25-OH (D2 and D3) Today I10 - Essential (primary) hypertension Lipid Panel Today I10 - Essential (primary) hypertension Complete Blood Count no Diff Today I10 - Essential (primary) hypertension MM screening mammo BI Today Z12.31 - Encounter for screening mammogram for malignant neoplasm of breast Referrals Cologuard Test Z12.11 - Encounter for screening for malignant neoplasm of colon [facility] Referral Z12.4 - Encounter for screening for malignant neoplasm of cervix
[2024-10-25 09:31] VITALS: BP 122/80; PULSE 88; TEMP 37.1; O2SAT 99; BMI 26.1
== END 2024-10-25 10:27 | disposition home or self-care (01) ==
LOC: HO.HMCHD 09:28
PROVIDERS: PCP Internal Medicine; Visit Provider Internal Medicine
DX: I10 Essential (primary) hypertension (principal); Z00.00 Encounter for general adult medical examination without abnormal findings; E66.9 Obesity, unspecified

== ENCOUNTER → 2024-10-25 09:28 | Outpatient (BNVA) | payer BC, SELFPAY | PROVIDERS: PCP Internal Medicine; Visit Provider Internal Medicine ==

== ENCOUNTER 2024-10-25 10:32 | Outpatient (REF) | payer BC, SELFPAY ==
[2024-10-25 12:20] LABS: Hematocrit 35.2 % (37.0-47.0); Hemoglobin 11.4 g/dl (12.0-16.0); Mean Corpuscular HGB Conc 32.4 g/dl (31.0-35.0); Mean Corpuscular Hemoglobin 25.6 pg (27.0-33.0); Mean Corpuscular Volume 78.9 fL (80.0-98.0); Mean Platelet Volume 9.3 fL (9.4-12.3); Platelet Count 312 X10*3/uL (160-400); Red Blood Count 4.46 X10*6/uL (4.20-5.50); Red Cell Distribution Width 14.6 % (11.0-16.0)
[2024-10-25 12:55] LABS: Appearance Urine Clear; Color Urine Yellow; Glucose Urine UA Negative (Negative); Leukocyte Esterase Urine Negative (Negative); Nitrite Urine Negative (Negative); Urine Blood Negative (Negative); Urine Ketones Negative (Negative); Urine Protein Negative (Neg-Trace)
[2024-10-25 12:58] LABS: Alanine Aminotransferase 13 U/L (0-31); Albumin Level 4.6 g/dL (3.5-5.0); Alkaline Phosphatase 61 U/L (39-117); Anion Gap 12 (12-20); Aspartate Amino Transferase 22 U/L (5-31); Bilirubin Direct 0.2 mg/dL (0.0-0.5); Bilirubin Total 0.3 mg/dL (0.0-1.0); Blood Urea Nitrogen 10 mg/dL (9-16); Calcium 9.2 mg/dL (8.4-10.2); Carbon Dioxide 26 mmol/L (22-29); Chloride 102 mmol/L (96-108); Cholesterol 204 mg/dL (<200); Estimated Glomerular Filt Rate > 60; Glucose Random 88 mg/dL (60-115); HDL Cholesterol 76 mg/dL (>40); LDL Cholesterol Calculated 119 mg/dL (<100); Potassium 3.7 mmol/L (3.3-5.1); Sodium 136 mmol/L (135-145); Total Protein 8.2 g/dL (6.5-8.0); Triglycerides 49 mg/dL (<150)
[2024-10-25 13:15] LABS: Thyroid Stimulating Hormone 1.16 uIU/mL (0.32-4.0)
[2024-10-25 13:20] LABS: Folate 6.4 ng/mL (> or = 4.0); Vitamin B12 975 pg/mL (200-900)
[2024-10-29 15:23] LABS: Vitamin D 25-OH, D2 <4 ng/mL; Vitamin D 25-OH, D3 70 ng/mL; Vitamin D 25-OH, Total 70 ng/mL (30-100)
== END 2024-10-25 10:33 | disposition home or self-care (01) ==
LOC: HO.10HDL 10:32
PROVIDERS: Visit Provider Internal Medicine
DX: I10 Essential (primary) hypertension (principal)
CPT/HCPCS: 36415; 80048; 80061; 80076; 81003; 82306; 82607; 82746; 84443; 85027

== ENCOUNTER 2024-11-25 08:57 | Outpatient (REF) | payer BC, SELFPAY ==
--- OUTSIDE RECORDS SUMMARY | 2024-11-25 09:09 | XMS_ITS | Continuity of Care Document ---
Author Organization [facility] [address] [place] [address] Phone [phone] Social History Type Date Description Comments Sex Female Sex Unknown Medical Devices Description No Information Available Encounters Description No Information Available Assessments Description No Information Available Plan of Treatment No Information Available Functional Status Description No Information Available Mental Status Description No Information Available Referrals Description No Information Available
--- OUTSIDE RECORDS SUMMARY | 2024-11-25 09:09 | XMS_ITS ---
Author Name [facility] Organization Unknown History of Medication Use Medication Directions Dispensed Refills Start Date End Date Status bupropion HCl XL 150 mg 24 hr tablet, extended release Take 1 tablet every day by oral route in the morning. 5 active Mounjaro 10 mg/0.5 mL subcutaneous pen injector Inject 10 mg every week by subcutaneous route as directed. 04/28/20 24 completed Mounjaro 7.5 mg/0.5 mL subcutaneous pen injector Inject 7.5 mg every week by subcutaneous route as directed. 04/28/20 24 completed amoxicillin 875 mg tablet TAKE 1 TABLET BY MOUTH TWICE A DAY FOR 7 DAYS 08/13/19 24 completed amoxicillin 875 mg-potassium clavulanate 125 mg tablet TAKE 1 TABLET BY MOUTH TWICE A DAY FOR 7 DAYS 08/13/19 24 completed docusate sodium 100 mg capsule TAKE 1 CAPSULE BY MOUTH 2 TIMES A DAY NEEDED FOR CONSTIPATION 08/13/19 24 completed Mounjaro 15 mg/0.5 mL subcutaneous pen injector INJECT 15 MG UNDER THE SKIN ONCE WEEKLY FOR 4 WEEKS 08/13/19 24 completed ovtgzxci-ujqaxmnie-pklrd ernesto 3.5 mg/mL-10,000 unit/mL-1 % ear solution INSTILL 2 DROPS IN AFFECTED EAR 3 TIMES A DAY FOR 10 DAYS 08/13/19 24 completed ofloxacin 0.3 % ear drops INSTILL 5 DROPS INTO AFFECTED EAR(S) TWICE A DAY FOR 7 DAYS 08/13/19 24 completed oxycodone 5 mg tablet TAKE 1 TABLET BY MOUTH EVERY 4 HOURS NEEDED FOR PAIN (SCALE SCORE 7-10) 08/13/19 24 completed phentermine 15 mg capsule TAKE 1 CAPSULE (15 MG) BY MOUTH ONCE DAILY BEFORE BREAKFAST 08/13/19 24 completed sodium fluoride 1.1 % dental cream USE DIRECTED BEFORE BEDTIME 08/13/19 24 completed Mounjaro 15 mg/0.5 mL subcutaneous pen injector active bupropion HCl XL 150 mg 24 hr tablet, extended release active ferrous sulfate active hydrochlorothiazide 25 mg tablet TAKE 1 TABLET BY MOUTH EVERY DAY active levothyroxine 88 mcg tablet TAKE 1 TABLET BY MOUTH EVERY DAY active lisinopril 10 mg tablet TAKE 1 TABLET BY MOUTH TWICE A DAY active lisinopril 5 mg tablet Take 1 tablet every day by oral route. active Mounjaro 12.5 mg/0.5 mL subcutaneous pen injector Inject 12.5 mg every week by subcutaneous route as directed. active Problems Problem Status Onset Date Problem Type Date of Resoluti on Source Essential hypertension active 2023-08-13 [facility]Act [facility] Obesity active 2023-07-28 ProblemAct [facility] Iron deficiency anemia active 2023-08-13 ProblemAct [facility] Hypothyroidism active 2023-08-13 ProblemAct [facility] Encounters Encounter Type Encounter Reason Primary Diagnosis Location Date Ambulatory [facility] 10/27/2024 Ambulatory [facility] 06/16/2024 Ambulatory [facility] 06/14/2024 Care Team Organization Name Specialty Phone Email Start Date End Da te [facility] 04/09/2024 025
--- OUTSIDE RECORDS SUMMARY | 2024-11-25 09:09 | XMS_ITS | Patient Health Record ---
Author Organization [facility] [address] Address [address] [place] [address] Care Team Providers Care Math Interventionist Name Role Phone KLEVER BUTLER Unavailable [phone] Allergies No Known Allergies Reason For Referral No Information Medications Medication SIG (Take, Route, Frequency, Duration) Notes Start Date End Date Status hydroCHLOROthiazide 25 MG 1 tablet in th e morning Orally Once a day Active Zepbound 2.5 MG/0.5ML 0.5ML Subcutaneous once weekly; Duration: 30 days 07/03/2023 Active Levothyroxine Sodium 88 MCG 1 tablet in the morning on an empty stomach Orally Once a day Active Wegovy 1 MG/0.5ML inject 1 mg Subcutaneous once a week; Duration: 30 days PA approved, medication is covered by pts insurance 07/11/2023 Active Social History Tobacco Use: Social History Observation Description Date Details (start date - stop date) Never Smoker NA - NA Tobacco Use/Smoking Question Answer Notes Are you a nonsmoker Problems Problem Type SNOMED Code ICD Code Onset Dates Problem Status W/U Status Risk Notes Problem Hypothyroidism (20461395) Hypothyroidism, unspecified (E03.9) Active confirmed Problem Adult health examination (022026268) Encounter for general adult medical examination without abnormal findings (Z00.00) Active confirmed Problem Disease of blood AND/OR blood forming organ (62523431) Encounter for screening for diseases of the blood and blood-forming organs and certain disorders involving the immune mechanism (Z13.0) Active confirmed Problem Diabetes mellitus screening (286013846) Encounter for screening for diabetes mellitus (Z13.1) Active confirmed Problem Essential hypertension (84681913) Hypertension, unspecified type (I10) Active confirmed Problem Body mass index 25-29 - overweight (528672671) BMI 25.0-25.9,adult (Z68.25) Active confirmed Problem Vitamin B>12< deficiency anaemia (87809492) Anemia due to vitamin B12 deficiency, unspecified B12 deficiency type (D51.9) Active confirmed Problem BMI 25-29 - overweight (278627498) BMI 27.0-27.9,adult (Z68.27) Active confirmed Problem Screening for cardiovascular system disease (982157236) Screening for cardiovascular condition (Z13.6) Active confirmed Problem Obesity (633799311) Obesity due to excess calories without serious comorbidity, unspecified classification (E66.09) Active confirmed Plan Of Treatment Pending Test Test Name Order Date Vitamin B12 07/03/2023 EKG 01/16/2023 CBC (COMPLETE BLOOD COUNT) WITH DIFF 12/2023 COMPREHENSIVE METABOLIC PANEL 07/03/2023 LIPID PANEL, STANDARD 12/21/2022 HEMOGLOBIN A1c 12/21/2022 Insurance Providers Payer Name Payer Address Payer Phone Subscriber Number Group Number Insured Name Patient Relationship to Insured Coverage Start Date Coverage End Date [facility] [address] [place] [address] [phone] [id number] CAMRYN BARROW Self - patient is the insured Medications Administered Medication Instructions Date of Administration Dosage Notes MICC B12 INJECTION 01/16/2023 MICC B12 INJECTION 01/23/2023 MICC B12 INJECTION 03/15/2023 Semaglutide 01/16/2023 sema 0.25mg Semaglutide 01/23/2023 0.25 mg LLQ SQ Semaglutide 02/07/2023 lot# [id number] 0.25mg Semaglutide 02/13/2023 0.25 mg R tricep SQ Semaglutide 03/15/2023 0.5 mg LRQ SQ Semaglutide 03/22/2023 lot#[id number] 0.5mg Semaglutide 04/05/2023 Semaglutide 04/12/2023 1 Semaglutide 04/19/2023 1.0 mg R tricep SQ Semaglutide 04/26/2023 1 mL Semaglutide 05/03/2023 1.0 mg LLQ SQ Semaglutide 05/10/2023 1 mg lot#[id number] 1mg Semaglutide 05/24/2023 Semaglutide 07/12/2023 1 Medical (General) History Medical History History ICD Code hypertension Hypothyroidism overweight Surgical History Surgery Date(Month/Year) gallbladder 09/09/2022 Hospitalization History Reason Date(Month/Year) SAME SURGICAL
--- OUTSIDE RECORDS SUMMARY | 2024-11-25 09:09 | XMS_ITS | Clinical Summary ---
Author Organization [facility] ity Address [address] [place] [id number] Care Team Providers Care Parts Professional Name Role Phone Dante Gray MD Primary Care Provider [phone] Social History Tobacco Use Types Packs/Day Years Used Date Smoking Tobacco: Never Assessed Comments Unknown Sex and Gender Information Value Date Recorded Sex Assigned at Not on file Legal Sex Female 8:55 PM EST Gender Identity Not on file Sexual Orientation Not on file Plan of Treatment Health Maintenance Due Date Last Done Comments Breast Cancer Screening 1979 DTaP,Tdap,and Td Vaccines (1 - Tdap) 1998 Hepatitis B Vaccines (1 of 3 - 19+ 3-dose series) 1998 Cervical Cancer Screening: P ap Smear 02/27/2000 COVID-19 Vaccine (2023-2 5 season) 2024 Influenza Vaccine (Season Ended) 2025 HIB Vaccines Aged Out No longer eligi ble based on patient's age to complete this topic HPV Vaccines Aged Out No longer eligi ble based on patient's age to complete this topic Hepatitis A Vaccines Aged Out No long er eligible based on patient's age to complete this topic IPV Vaccines Aged Out No longer eligi ble based on patient's age to complete this topic MMR Vaccines Aged Out No longer eligi ble based on patient's age to complete this topic Meningococcal ACWY Vaccine Aged Out N o longer eligible based on patient's age to complete this topic Meningococcal B Vaccine Aged Out No l onger eligible based on patient's age to complete this topic Pneumococcal Vaccine: Pediat rics (0 to 5 Years) and At-Risk Patients (6 to 64 Years) Aged Out No longer eligible b ased on patient's age to complete this topic RSV Immunization Patients Un marquita 20 months Aged Out No longer eligible b ased on patient's age to complete this topic Varicella Vaccines Aged Out No longer eligible based on patient's age to complete this topic Care Teams Parts Professional Relationship Specialty Start Date End Date Dante Gary MD [address] [place] [address] Dr Nichole MA PCP - General Internal Medicine 10/02/21
== END 2024-11-25 08:58 | disposition home or self-care (01) ==
LOC: HO.MAMMO 08:57
PROVIDERS: PCP Internal Medicine; Visit Provider Internal Medicine
DX: Z12.31 Encounter for screening mammogram for malignant neoplasm of breast (principal)
CPT/HCPCS: 77063; 77067

== ENCOUNTER → 2024-11-25 09:30 | Outpatient (BNV) | payer BC, SELFPAY | PROVIDERS: PCP Internal Medicine; Visit Provider Internal Medicine | DX: Z12.31 Encounter for screening mammogram for malignant neoplasm of breast (principal) | CPT/HCPCS: 77063; 77067 ==

== ENCOUNTER 2024-12-17 07:21 | Outpatient (REF) | payer BC, SELFPAY ==
--- NOTE | ~2024-12-17 | US_ITS ---
EXAMINATIONS: 1. MM DIAGNOSTIC DIGITAL BREAST TOMOSYNTHESIS, LEFT 2. US BREAST LIMITED LEFT CLINICAL INFORMATION: Callback from screening for left breast focal asymmetry in the upper outer quadrant COMPARISON: Screening mammogram on November 25, 2024 TECHNIQUE: Digital breast tomosynthesis is performed in full field ML 90 degrees view along with computer-aided detection (CAD). Synthesized 2D images are generated from the tomosynthesis. Spot compression tomosynthesis images were also obtained. FINDINGS: BREAST COMPOSITION: There are scattered areas of fibroglandular density (ACR BI-RADS breast composition Category b). LEFT BREAST: Previously described focal asymmetry in the upper outer quadrant persists on today's images at approximately 8 cm from the nipple (spot MLO 15/41, spot CC 16/45). Targeted ultrasound of the left breast was performed at the location of the mammographic finding. The survey shows a 1.1 x 0.6 x 1.0 cm hypoechoic solid mass at 2 o'clock position at 8 cm from the nipple. No internal vascularity demonstrated with color Doppler evaluation. Survey of the axilla did not reveal suspicious lymph nodes. US/US breast LT limited mamm only IMPRESSION: LEFT BREAST: 1.1 cm solid mass at 2 o'clock position 8 cm from the nipple. Suspicious findings. An ultrasound guided needle core biopsy is recommended. ASSESSMENT: BI-RADS 4 - Suspicious finding RECOMMENDATION: Biopsy recommended Results were discussed with the patient at time of visit. Electronically signed by: Julia Mercedes MD 12/17/2024 08:32 AM EDT
--- OUTSIDE RECORDS SUMMARY | 2024-12-17 07:23 | XMS_ITS | Clinical Summary ---
Author Organization [facility] it Address [address] [place] [phone] Care Team Providers Care Vehicle Insurance Agent Name Role Phone Dante Gary MD Primary Care Provider [phone] Social History Tobacco Use Types Packs/Day Years [...] 02/27/2000 COVID-19 Vaccine (2023-2 5 season) 2024 Depression Screening 05/26/2024 Influenza Vaccine (#1) 2025 HIB Vaccines Aged Out No longer [...] 5 Years) and At-Risk Patients (6 to 49 Years) Aged Out No longer eligible b ased on patient's age to complete this topic RSV Immunization Patients Un marquita 20 months Aged Out No longer eligible b ased on patient's age to complete this topic Varicella Vaccines Aged Out No longer eligible based on patient's age to complete this topic Care Teams Vehicle Insurance Agent Relationship Specialty Start Date End Date Dante Gary MD [address] [place] [address] Dr Nichole [place] PCP - General Internal Medicine 10/02/21
--- OUTSIDE RECORDS SUMMARY | 2024-12-17 07:23 | XMS_ITS | Continuity of Care Document ---
Author Organization [facility] [address] [place] [address] Phone [phone] Social History Type Date Description Comments Sex Female Sex Unknown Medical Devices Description No Information Available Encounters Description No Information Available Assessments Description No Information Available Plan of Treatment No Information Available Functional Status Description No Information Available Mental Status Description No Information Available Referrals Description No Information Available
--- OUTSIDE RECORDS SUMMARY | 2024-12-17 07:23 | XMS_ITS | Data Portability ---
Author Organization [employer], [employer] [facility] Address [address] [place] [id number] Care Team Providers Care Pressroom Supervisor Name Role Phone DANTE CARNEY Primary Care Provider [phone] Assessment Encounter Date Assessment Date Assessment LastModified by Organization Details LastModified Time 02/18/2024 02/18/2024 Assessment: Patient with abnormal weight gain presents for nutritional counseling and weight management Nutrition Intervention: Patient was recommended a heart healthy, low glycemic eating style focusing on minimally processed foods with adequate protein, fiber, and nutrient intake. Education and Counseling: Reviewed GLP1 Mounjaro mechanism of action covering appetite, meal structure, prioritizing protein and fiber, and side effect management. Strength training: Discussed the importance of strength training as a means to preserve muscle mass during weight loss as well as provide strength and balance, in addition to general benefits of exercise. Recommendations per guidelines are 2x per week. Activities include: lifting weights, resistance training, isometrics, yoga, pilates, boxing, martial arts. Fiber: Discussed high fiber foods to help achieve recommended ~25g fiber per day: berries, pears, romina/flax seeds, cruciferous vegetables: broccoli, cauliflower, cabbage, brussel sprouts, legumes like lentils, chickpeas, edamame, and beans. Whole grains in moderation like oats/farro/bran/wi ld rice/bulgar/farro/ quinoa. Can supplement if needed with psyllium husk, Metamucil, or Benefiber. Constipation: Discussed ways to manage constipation: 1. Meeting fiber needs of ~25g per day 2. Meeting water/hydration needs of 8-10 cups per day 3. Mechanical movement, like walking and twisting exercises. In addition, you can consider a magnesium supplement or stool softener if lifestyle interventions are not enough. Protein: Discussed including adequate protein throughout the day to support general needs and muscle mass preservation/build ing. A general rule of thumb can be 20-25g, 3x/day. Protein sources include: meat, fish, poultry, eggs, qatari yogurt, cottage cheese, tofu, tempeh, seitan, and protein supplements. Food Order : Discussed eating carbs last, or at least, vegetables/fiber first within the meal to help control the rise in blood sugars after the meal. Ideally include 4g of fiber. Adding on roasted vegetables, salad, or vegetable soup before the carb would be good examples. Iron Deficiency: encouraged continuing iron supplementation, educated on iron-rich food sources, encourage Vitamin C supplementation to ensure optimal iron absorption, avoid coffee and tea at mealtimes as these can interrupt iron absorption. Plan/Goals: 1. Consistency with strength/resistanc e training -- goal of at least 1-2x per week. Total Time Spent on the date of the encounter: 30 minutes which includes visit preparation time, time reviewing and independently interpreting results, [id number] time with the patient, counseling/educati ng the patient/family members/caregivers ,, care coordination, documenting clinical information in the electronic medical record, following up on referrals/results and communicating with related healthcare professionals as needed. [email or web address] Not available 02/18/2024 17:58:12 06/14/2024 06/14/2024 Assessment: Patient with abnormal weight gain presents for nutritional counseling and weight management Nutrition Intervention: Patient was recommended a heart healthy, low glycemic eating style focusing on minimally processed foods with adequate protein, fiber, and nutrient intake. Education and Counseling: Reviewed GLP1 Mounjaro mechanism of action covering appetite, meal structure, prioritizing protein and fiber, and side effect management. Fiber: Discussed high fiber foods to help achieve recommended ~25g fiber per day: berries, pears, romina/flax seeds, cruciferous vegetables: broccoli, cauliflower, cabbage, brussel sprouts, legumes like lentils, chickpeas, edamame, and beans. Whole grains in moderation like oats/farro/bran/wi ld rice/bulgar/farro/ quinoa. Can supplement if needed with psyllium husk, Metamucil, or Benefiber. Constipation: Discussed ways to manage constipation: 1. Meeting fiber needs of ~25g per day 2. Meeting water/hydration needs of 8-10 cups per day 3. Mechanical movement, like walking and twisting exercises. In addition, you can consider a magnesium supplement or stool softener if lifestyle interventions are not enough. Protein: Discussed including adequate protein throughout the day to support general needs and muscle mass preservation/build ing. A general rule of thumb can be 20-25g, 3x/day. Protein sources include: meat, fish, poultry, eggs, qatari yogurt, cottage cheese, tofu, tempeh, seitan, and protein supplements. Food Order : Discussed eating carbs last, or at least, vegetables/fiber first within the meal to help control the rise in blood sugars after the meal. Ideally include 4g of fiber. Adding on roasted vegetables, salad, or vegetable soup before the carb would be good examples. Plan/Goals: 1. Continue to ensure a source of protein with every meal. 2. Strength/resistanc e training -- Discussed the importance of strength training as a means to preserve muscle mass during weight loss as well as provide strength and balance, in addition to general benefits of exercise. Recommendations per guidelines are 2x per week. Activities include: lifting weights, resistance training, isometrics, yoga, pilates, boxing, martial arts. Total Time Spent on the date of the encounter: 30 minutes which includes visit preparation time, time reviewing and independently interpreting results, [id number] time with the patient, counseling/educati ng the patient/family members/caregivers ,, care coordination, documenting clinical information in the electronic medical record, following up on referrals/results and communicating with related healthcare professionals as needed. [email or web address] Not available 06/14/2024 17:58:59 09/14/2024 09/14/2024 Assessment: Patient with abnormal weight gain presents for nutritional counseling and weight management Nutrition Intervention: Patient was recommended a heart healthy, low glycemic eating style focusing on minimally processed foods with adequate protein, fiber, and nutrient intake. Education and Counseling: Reviewed GLP1 Rejiunjaro mechanism of action covering appetite, meal structure, prioritizing protein and fiber, and side effect management. Fiber: Discussed high fiber foods to help achieve recommended ~25g fiber per day: berries, pears, romian/flax seeds, cruciferous vegetables: broccoli, cauliflower, cabbage, brussel sprouts, legumes like lentils, chickpeas, edamame, and beans. Whole grains in moderation like oats/farro/bran/wi ld rice/bulgar/farro/ quinoa. Can supplement if needed with psyllium husk, Metamucil, or Benefiber. Constipation : Discussed ways to manage constipation: 1. Meeting fiber needs of ~25g per day 2. Meeting water/hydration needs of 8-10 cups per day 3. Mechanical movement, like walking and twisting exercises. In addition, you can consider a magnesium supplement or stool softener if lifestyle interventions are not enough. Protein : Discussed including adequate protein throughout the day to support general needs and muscle mass preservation/build ing. A general rule of thumb can be 20-30g, 3x/day. Protein sources include: meat, fish, poultry, eggs, qatari yogurt, cottage cheese, tofu, tempeh, seitan, and protein supplements. Food Order : Discussed eating carbs last, or at least, vegetables/fiber first within the meal to help control the rise in blood sugars after the meal. Ideally include 4g of fiber. Adding on roasted vegetables, salad, or vegetable soup before the carb would be good examples. Plan/Goals: 1. Incorporate a protein-rich meal or snack following strength focused workouts. Total Time Spent on the date of the encounter: 30 minutes which includes visit preparation time, time reviewing and independently interpreting results, [id number] time with the patient, counseling/educati ng the patient/family members/caregivers ,, care coordination, documenting clinical information in the electronic medical record, following up on referrals/results and communicating with related healthcare professionals as needed. [email or web address] Not available 09/14/2024 20:50:51 Plan of Treatment Reminders Order Date Submit Date Provider Last Modified By Organization Details Last Modified Time Details Appointments FOLLOW-U P (FV)-65 2024 07:30P M JESUS BIRD DNP, FACULTY DEAN, PAYROLL CLERK-C Not available Not available Not available RD FOLLOW-U P (RDF)-65 2024 06:[address] Not available Not available Not available FOLLOW-U P (FV)-65 2024 05:00P M JESUS BIRD, DNP, FACULTY DEAN, PAYROLL CLERK-C Not available Not available Not available Lab None recorded . Referral None recorded . Procedures None recorded . Surgeries None recorded . Imaging None recorded . Medication Orders Mounjaro 15 mg/0.5 mL subcutan eous pen injector 2024 025 [facility], [address] [place] [address], [id number], 09/22/2024 13:28:39 bupropio n HCl XL 150 mg 24 hr tablet, extended release 2024 025 [facility], [address] [place] [address], [id number], 09/16/2024 07:36:01 Mounjaro 15 mg/0.5 mL subcutan eous pen injector 2024 025 [facility], [address] [place] [address], [id number], 06/16/2024 10:20:56 Patient TargetsNo targets recorded. Patient Instructions Encounter Date Encounter Id Patient Instructions Last Modified By Organization Details Last Modified Time 02/18/2024 [id number] Gibson Jack! So nice to see you again today! Here is the main goal we highlighted today: Plan/Goals: 1. Consistency with strength/resistance training -- goal of at least 1-2x per week. Additionally, we discussed/a few things to keep in mind: Reviewed GLP1 Mounjaro mechanism of action covering appetite, meal structure, prioritizing protein and fiber, and side effect management. Strength training: Discussed the importance of strength training as a means to preserve muscle mass during weight loss as well as provide strength and balance, in addition to general benefits of exercise. Recommendations per guidelines are 2x per week. Activities include: lifting weights, resistance training, isometrics, yoga, pilates, boxing, martial arts. Fiber: Discussed high fiber foods to help achieve recommended ~25g fiber per day: berries, pears, romina/flax seeds, cruciferous vegetables: broccoli, cauliflower, cabbage, brussel sprouts, legumes like lentils, chickpeas, edamame, and beans. Whole grains in moderation like oats/farro/bran/nikia d rice/bulgar/farro/q uinoa. Can supplement if needed with psyllium husk, Metamucil, or Benefiber. Constipation: Discussed ways to manage constipation: 1. Meeting fiber needs of ~25g per day 2. Meeting water/hydration needs of 8-10 cups per day 3. Mechanical movement, like walking and twisting exercises. In addition, you can consider a magnesium supplement or stool softener if lifestyle interventions are not enough. Protein: Discussed including adequate protein throughout the day to support general needs and muscle mass preservation/buildi ng. A general rule of thumb can be 20-25g, 3x/day. Protein sources include: meat, fish, poultry, eggs, qatari yogurt, cottage cheese, tofu, tempeh, seitan, and protein supplements. Food Order : Discussed eating carbs last, or at least, vegetables/fiber first within the meal to help control the rise in blood sugars after the meal. Ideally include 4g of fiber. Adding on roasted vegetables, salad, or vegetable soup before the carb would be good examples. Iron Deficiency: encouraged continuing iron supplementation, educated on iron-rich food sources, encourage Vitamin C supplementation to ensure optimal iron absorption, avoid coffee and tea at mealtimes as these can interrupt iron absorption. Please continue your Mounjaro as prescribed, we are here if you need anything!! Not available 02/18/2024 17:58:00 06/14/2024 [id number] Pa Jack - So good to see you today -- keep taking care of yourself! Here are a couple of goals to focus on: Plan/Goals: 1. Continue to ensure a source of protein with every meal. 2. Strength/resistance training -- Discussed the importance of strength training as a means to preserve muscle mass during weight loss as well as provide strength and balance, in addition to general benefits of exercise. Recommendations per guidelines are 2x per week. Activities include: lifting weights, resistance training, isometrics, yoga, pilates, boxing, martial arts. Additionally, we've discussed: Reviewed GLP1 Mounjaro mechanism of action covering appetite, meal structure, prioritizing protein and fiber, and side effect management. Fiber: Discussed high fiber foods to help achieve recommended ~25g fiber per day: berries, pears, romina/flax seeds, cruciferous vegetables: broccoli, cauliflower, cabbage, brussel sprouts, legumes like lentils, chickpeas, edamame, and beans. Whole grains in moderation like oats/farro/bran/nikia d rice/bulgar/farro/q uinoa. Can supplement if needed with psyllium husk, Metamucil, or Benefiber. Constipation: Discussed ways to manage constipation: 1. Meeting fiber needs of ~25g per day 2. Meeting water/hydration needs of 8-10 cups per day 3. Mechanical movement, like walking and twisting exercises. In addition, you can consider a magnesium supplement or stool softener if lifestyle interventions are not enough. Protein: Discussed including adequate protein throughout the day to support general needs and muscle mass preservation/buildi ng. A general rule of thumb can be 20-25g, 3x/day. Protein sources include: meat, fish, poultry, eggs, qatari yogurt, cottage cheese, tofu, tempeh, seitan, and protein supplements. Food Order : Discussed eating carbs last, or at least, vegetables/fiber first within the meal to help control the rise in blood sugars after the meal. Ideally include 4g of fiber. Adding on roasted vegetables, salad, or vegetable soup before the carb would be good examples. Reach out with any questions or concerns! [email or web address] Not available 06/14/2024 17:59:31 06/16/2024 [id number] Gibson Santiago, it was n ice chatting with you today! I've increased your Mounjaro to 15 mg and sent a message to our nursing team to get a lab requisition sent to you to make sure your thyroid and other labs are stable. Medication: -->Please report any side effects/issues, such as significant reflux, nausea, constipation OR hoarseness of voice, difficulty swallowing, lump or nodule on throat (where thyroid is located) -->Please seek care in person should you experience vomiting and/or severe abdominal pain -->Please reach out if you have any questions/concerns. Nutrition: -->RD as scheduled -->Low GI diet-Limit highly processed/sugary foods/improve quality of foods (whole foods) -->Shift calories to earlier in the day -->Protein breakfast -->Food order: protein->healthy fats->veggies->frui ts and starchy carbs -->Please refer to the [employer] (Inspect [employer]) dietary related learning courses and articles Exercise: -->Exercise as tolerated, goal of 150 minutes per week -->Resistance training with bands, body weight, or free weights 2-3 times per week, as tolerated -->Please refer to the [employer] exercise-related learning courses and articles Sleep Hygiene: -->Setting a goal for at least 7 to 8 hours of sleep time per day -->Avoid engaging in any activity that requires sustained mental alertness while in bed -->Maintain a regular bedtime and wake-up time -->Avoid excessive naps during the daytime -->Minimize environmental noise, bright lights (phones/TV/electron ic devices), and extreme temperatures -->Avoid alcohol, caffeinated beverages, and nicotine products for at least 6 hours prior to bedtime -->Avoid strenuous exercise and large meals for at least 4 hours prior to bedtime Other Relevant Instructions: -->Weigh yourself at least once weekly and log in [employer] (Inspect Manager) -->Check blood pressure and heart rate and log in [employer] [facility] Ivan before your next provider visit in a month Contact Information for [employer] -->Option 1 to Schedule Email: [email or web address] Specific Questions: -->Need refills? Always request refills at least a week before you need them. -->Surgery or procedure scheduled? Always check with your providers for directions specific to your type of procedure and medication. Some medications may require tapering to decrease the dose prior to a procedure or surgery. -->Thinking about ? Medications used as part of a comprehensive weight treatment plan are contraindicated in , please reach out to your provider directly for guidance on when to stop medication, some medications may require tapering down on the dosage as well. -->New illness or medication? Please let your provider know. We'll reconnect in 3 months, but please reach out anytime between now and then with any questions or concerns. With care, Marisabel [email or web address] Not available 06/16/2024 12:52:05 09/14/2024 [id number] [employer] Jack - Wonderful to reconnect with you -- keep up the great work! Please continue your Mounjaro as prescribed, keeping the following goal in mind: Plan/Goals: 1. Incorporate a protein-rich meal or snack following strength focused workouts. Please reach out if you need anything! [email or web address] Not available 09/14/2024 20:51:36 09/15/2024 [id number] [employer] Jack! It was n ice seeing you today. Please review information from today s visit below: Medication: -->Continue Mounjaro 15 mg weekly. -->Start bupropion 150 mg - 1 tablet in the morning. -->Please report any side effects/issues, such as mood concerns, insomnia. -->Please reach out if you have any questions/concerns. Nutrition: -->RD as scheduled -->Low GI diet-Limit highly processed/sugary foods/improve quality of foods (whole foods) -->Shift calories to earlier in the day -->Protein breakfast -->Food order: protein->healthy fats->veggies->frui ts and starchy carbs -->Please refer to the [employer] [facility] [employer] dietary related learning courses and articles Exercise: -->Continue exercise as tolerated, goal of 150 minutes per week -->Resistance training with bands, body weight, or free weights 2-3 times per week, as tolerated -->Please refer to the [employer] exercise-related learning courses and articles Sleep Hygiene: -->Setting a goal for at least 7 to 8 hours of sleep time per day -->Avoid engaging in any activity that requires sustained mental alertness while in bed -->Maintain a regular bedtime and wake-up time -->Avoid excessive naps during the daytime -->Minimize environmental noise, bright lights (phones/TV/electron ic devices), and extreme temperatures -->Avoid alcohol, caffeinated beverages, and nicotine products for at least 6 hours prior to bedtime -->Avoid strenuous exercise and large meals for at least 4 hours prior to bedtime Other Relevant Instructions: -->Weigh yourself at least once weekly and log in [employer] [facility] Ivan -->Check blood pressure and heart rate and log in [employer] [facility] Ivna before your next provider visit in a month Contact Information for [employer] -->Option 1 to Schedule Email: [email or web address] Specific Questions: -->Need refills? Always request refills at least a week before you need them. -->Surgery or procedure scheduled? Always check with your providers for directions specific to your type of procedure and medication. Some medications may require tapering to decrease the dose prior to a procedure or surgery. -->Thinking about ? Medications used as part of a comprehensive weight treatment plan are contraindicated in , please reach out to your provider directly for guidance on when to stop medication, some medications may require tapering down on the dosage as well. -->New illness or medication? Please let your provider know. We'll reconnect in 3 months, but please stay connected with any questions or concerns. With Marisabel smith DNP, FACULTY DEAN Not available 09/15/2024 20:51:04 Reason for Referral None Reported. Results Created Date Observation Date Name Description Value Unit Range Abnormal Flag Note LastModifiedBy Organization Detail LastModifiedTime 06/26/1906/28/2024 LIPID PANEL , STAND CECILY cholesterol, total 181 mg/dL <200 normal Not Available [facility] [address] [place], [address], 06/28/2024 06:40:27 06/26/1906/28/2024 LIPID PANEL , STAND CECILY HDL cholesterol 69 mg/dL > or = 50 normal Not Available [facility] [address] [place], [address], 06/28/2024 06:40:27 06/26/1906/28/2024 LIPID PANEL , STAND CECILY triglyceride s 38 mg/dL <150 normal Not Available [facility] [address] [place], [address], 06/28/2024 06:40:27 06/26/19 25 06/28/2024 LIPID PANEL , STAND CECILY LDL-choleste rol 101 mg/dL _(inez c) high Refer ence range : <100 Edgar able range <100 mg/dL for prima ry preve ntion ; <70 mg/dL for patie nts with CHD or diabe tic patie nts with > or = 2 CHD risk facto rs. LDL-C is now calcu lated using the Marah n-Hop kins calcu latio n, which is a valid ated novel metho d provi ding jessie r accur acy than the Fried libby equat ion in the estim ation of LDL-C . Marah branch SS et al. PEDRO. 2013; 310(1 9): 2061- 2068 (http ://ed ucati on.[employer]. [employer]/f aq/FA Q164) Not Available [facility] [address], [place], [address], 06/28/2024 06:40:27 06/26/19 25 06/28/2024 LIPID PANEL , STAND CECILY chol/HDLC ratio 2.6 (calc ) <5.0 normal Not Available [facility] [address], [place], [address], 06/28/2024 06:40:27 06/26/19 25 06/28/2024 LIPID PANEL , STAND CECILY non HDL cholesterol 112 mg/dL _(inez c) <130 normal For patie nts with diabe kemi plus 1 major ASCVD risk facto r, treat ing to a non-H DL-C goal of <100 mg/dL (LDL- C of <70 mg/dL ) is wilmar villedao n. Not Available [facility] [address], [place], [address], 06/28/2024 06:40:27 06/26/19 25 06/28/2024 COMPR EHENS NAZARIO METAB OLIC PANEL glucose 82 mg/dL 65-99 normal Fasti ng refer ence inter edmundo Not Available [facility] [address], [place], [address], 06/28/2024 06:40:27 06/26/19 25 06/28/2024 COMPR EHENS NAZARIO METAB OLIC PANEL urea nitrogen (BUN) 12 mg/dL 7-25 normal Not Available [facility] [address], [place], [address], 06/28/2024 06:40:27 06/26/19 25 06/28/2024 COMPR EHENS NAZARIO METAB OLIC PANEL creatinine 0.63 mg/dL 0.50-0 .99 normal Not Available [facility] [address], [place], [address], 06/28/2024 06:40:27 06/26/19 25 06/28/2024 COMPR EHENS NAZARIO METAB OLIC PANEL eGFR 111 mL/mi n/1.7 3m2 > or = 60 normal Not Available [facility] [address], [place], [address], 06/28/2024 06:40:27 06/26/19 25 06/28/2024 COMPR EHENS NAZARIO METAB OLIC PANEL BUN/creatini ne ratio SEE NOTE: (calc ) 6-22 Not Repor wanda: BUN and Creat inine are withi n refer ence range . Not Available [facility] [address], [place], [address], 06/28/2024 06:40:27 06/26/19 25 06/28/2024 COMPR EHENS NAZARIO METAB OLIC PANEL sodium 138 mmol/ L 135-14 6 normal Not Available [facility] [address], [place], [address], 06/28/2024 06:40:27 06/26/19 25 06/28/2024 COMPR EHENS NAZARIO METAB OLIC PANEL potassium 3.5 mmol/ L 3.5-5. [address] [facility] [place] [facility] [address], [place], [address], 06/28/2024 06:40:27 06/26/19 25 06/28/2024 COMPR EHENS NAZARIO METAB OLIC PANEL chloride 102 mmol/ L 98-[address] [facility] [place] [facility] [address], [place], [address], 06/28/2024 06:40:27 06/26/19 25 06/28/2024 COMPR EHENS NAZARIO METAB OLIC PANEL carbon dioxide 30 mmol/ L 20-[address] [facility] [place] [facility] [address], [place], [address], 06/28/2024 06:40:27 06/26/19 25 06/28/2024 COMPR EHENS NAZARIO METAB OLIC PANEL calcium 8.7 mg/dL 8.6-10 .2 normal Not Available [facility] [address], [place], [address], 06/28/2024 06:40:27 06/26/19 25 06/28/2024 COMPR EHENS NAZARIO METAB OLIC PANEL protein, total 6.8 g/dL 6.1-8. 1 normal Not Available [facility] [address], [place], [address], 06/28/2024 06:40:27 06/26/19 25 06/28/2024 COMPR EHENS NAZARIO METAB OLIC PANEL albumin 4.1 g/dL 3.6-5. 1 normal Not Available [facility] [address], [place], [address], 06/28/2024 06:40:27 06/26/19 25 06/28/2024 COMPR EHENS NAZARIO METAB OLIC PANEL globulin 2.7 g/dL_ (calc ) 1.9-3. 7 normal Not Available [facility] [address], [place], [address], 06/28/2024 06:40:27 06/26/19 25 06/28/2024 COMPR EHENS NAZARIO METAB OLIC PANEL albumin/glob ulin ratio 1.5 (calc ) 1.0-2. 5 normal Not Available [facility] [address], [place], [address], 06/28/2024 06:40:27 06/26/19 25 06/28/2024 COMPR EHENS NAZARIO METAB OLIC PANEL bilirubin, total 0.4 mg/dL 0.2-1. 2 normal Not Available [facility] [address], [place], [address], 06/28/2024 06:40:27 06/26/19 25 06/28/2024 COMPR EHENS NAZARIO METAB OLIC PANEL alkaline phosphatase 44 U/L 31-125 normal Not Available [facility] [address], [place], [address], 06/28/2024 06:40:27 06/26/19 25 06/28/2024 COMPR EHENS NAZARIO METAB OLIC PANEL AST 19 U/L 10-35 normal Not Available [facility] [address], [place], [address], 06/28/2024 06:40:27 06/26/19 25 06/28/2024 COMPR EHENS NAZARIO METAB OLIC PANEL ALT 8 U/L 6-29 normal Not Available [facility] [address], [place], [address], 06/28/2024 06:40:27 06/26/19 25 06/28/2024 CBC (INCL UDES DIFF/ PLT) white blood cell count 5.0 thous and/u L 3.8-10 .8 normal Not Available [facility] [address], [place], [address], 06/28/2024 06:40:27 06/26/19 25 06/28/2024 CBC (INCL UDES DIFF/ PLT) red blood cell count 3.83 balta on/uL 3.80-5 .10 normal Not Available [facility] [address], [place], [address], 06/28/2024 06:40:27 06/26/19 25 06/28/2024 CBC (INCL UDES DIFF/ PLT) hemoglobin 10.0 g/dL 11.7-1 5.5 low Not Available [facility] [address], [place], [address], 06/28/2024 06:40:27 06/26/19 25 06/28/2024 CBC (INCL UDES DIFF/ PLT) hematocrit 32.0 % 35.0-4 5.0 low Not Available [facility] [address], [place], [address], 06/28/2024 06:40:27 06/26/19 25 06/28/2024 CBC (INCL UDES DIFF/ PLT) MCV 83.6 fL 80.0-1 00.0 normal Not Available [facility] [address], [place], [address], 06/28/2024 06:40:27 06/26/19 25 06/28/2024 CBC (INCL UDES DIFF/ PLT) MCH 26.1 pg 27.0-3 3.0 low Not Available [facility] [address], [place], [address], 06/28/2024 06:40:27 06/26/19 25 06/28/2024 CBC (INCL UDES DIFF/ PLT) MCHC 31.3 g/dL 32.0-3 6.0 low For adult s, a sligh t decre ase in the calcu lated MCHC value (in the range of 30 to 32 g/dL) is most likel y not clini marv signi fican t; abdon er, it shoul d be inter prete d with cauti on in corre lat n with other red cell kojo eters and the patie nt's clini inez condi tion. Not Available [facility] [place] [facility] [address], [place], [address], 06/28/2024 06:40:27 06/26/19 25 06/28/2024 CBC (INCL UDES DIFF/ PLT) RDW 13.5 % 11.0-1 5.0 normal Not Available [facility] [place] [facility] [address], [place], [address], 06/28/2024 06:40:27 06/26/19 25 06/28/2024 CBC (INCL UDES DIFF/ PLT) platelet count 339 thous and/u L 140-40 0 normal Not Available [facility] [place] [facility] [address], [place], [address], 06/28/2024 06:40:27 06/26/19 25 06/28/2024 CBC (INCL UDES DIFF/ PLT) MPV 9.6 fL 7.5-12 .5 normal Not Available [facility] [place] [facility] [address], [place], [address], 06/28/2024 06:40:27 06/26/19 25 06/28/2024 CBC (INCL UDES DIFF/ PLT) absolute neutrophils 2930 cells /uL 1500-7 800 normal Not Available [facility] [place] [facility] [address], [place], [address], 06/28/2024 06:40:27 06/26/19 25 06/28/2024 CBC (INCL UDES DIFF/ PLT) absolute lymphocytes 1515 cells /uL 850-39 00 normal Not Available [facility] [place] [facility] [address], [place], [address], 06/28/2024 06:40:27 06/26/19 25 06/28/2024 CBC (INCL UDES DIFF/ PLT) absolute monocytes 365 cells /uL 200-95 0 normal Not Available [facility] [place] [facility] [address], [place], [address], 06/28/2024 06:40:27 06/26/19 25 06/28/2024 CBC (INCL UDES DIFF/ PLT) absolute eosinophils 130 cells /uL 15-500 normal Not Available [facility] [place] [facility] [address], [place], [address], 06/28/2024 06:40:27 06/26/19 25 06/28/2024 CBC (INCL UDES DIFF/ PLT) absolute basophils 60 cells /uL 0-200 normal Not Available [facility] [place] [facility] [address], [place], [address], 06/28/2024 06:40:27 06/26/19 25 06/28/2024 CBC (INCL UDES DIFF/ PLT) neutrophils 58.6 % normal Not Available [facility] [place] [facility] [address], [place], [address], 06/28/2024 06:40:27 06/26/19 25 06/28/2024 CBC (INCL UDES DIFF/ PLT) lymphocytes 30.3 % normal Not Available [facility] [place] [facility] [address], [place], [address], 06/28/2024 06:40:27 06/26/19 25 06/28/2024 CBC (INCL UDES DIFF/ PLT) monocytes 7.3 % normal Not Available [facility] [place] [facility] [address] [place], [place], [address], 06/28/2024 06:40:27 06/26/19 25 06/28/2024 CBC (INCL UDES DIFF/ PLT) eosinophils 2.6 % normal Not Available [facility] [place] [facility] [address], [place], [address], 06/28/2024 06:40:27 06/26/19 25 06/28/2024 CBC (INCL UDES DIFF/ PLT) basophils 1.2 % normal Not Available [facility] [place] [facility] [address], [place], [address], 06/28/2024 06:40:27 06/26/19 25 06/28/2024 HS CRP hs CRP 0.9 mg/L normal Refer ence Range Optim al <1.0 Albaro lora PS et al. Endoc r Pract .2017 ;23(S uppl 2):1- 87. For ages >17 Years : hs-CR P mg/L Risk Accor ding to AHA/C DC Guide lines <1.0 Lower relat nazario cardi ovasc ular risk. 1.0-3 .0 [place] ge relat nazario cardi ovasc ular risk. 3.1-1 0.0 Highe r relat nazario cardi ovasc ular risk. Consi marquita retes ting in 1 to 2 weeks to exclu de a benig n trans ient eleva tion in the basel ine CRP value secon gildardo to infec tion or infla mmati on. >10.0 Persi stent eleva tion, upon retes ting, may be assoc iated with infec tion and infla mmati on. Pears on TA, Mensa h [place], Zaira ortiz [place], et al. [facility] rs of infla mmati on and cardi ovasc ular disea se: appli catio n to clini inez and publi c healt h pract ice: A state ment for healt bridgerre akila abdullahi from the [facility] for Disea se Contr ol and Preve ntion and the Ameri can Heart Assoc iatio n. Circu latio n 2002; 107(3 ): 499-5 11. Not Available [facility] [place] [facility] [address], [address], 06/28/2024 06:40:28 06/26/1906/28/2024 INSUL IN insulin 3.5 uIU/m L normal Refer ence Range < or = 18.4 Risk: Optim al < or = 18.4 Moder ate NA High >18.4 Adult cardi ovasc ular event risk categ ory cut point s (opti mal, moder ate, high) are based on Insul in Refer ence Inter edmundo studi es per[facility] at [facility] in 2021. Not Available [facility] [place] [facility] [address], [place], [address], 06/28/2024 06:40:28 06/26/1906/28/2024 TSH TSH 2.45 mIU/L normal Refer ence Range > or = 20 Years 0.40- 4.50 Pregn anthony Range s First trime ster 0.26- 2.66 Secon d trime ster 0.55- 2.73 Third trime ster 0.43- 2.91 Not Available [facility] [place] [facility] [address], [place], [address], 06/28/2024 06:40:28 06/26/1906/28/2024 VITAM IN B12 vitamin B12 >2000 pg/mL 200-11 00 high Not Available [facility] [place] [facility] [address], [address], 06/28/2024 06:40:28 06/26/19 25 06/28/2024 VITAM IN D,25- OH,TO DAYANARA,I A vitamin D,25-oh,tota l,ia 65 NG/mL 30-100 normal Vitam in D Statu s 25-OH Vitam in D: Defic iency : <20 ng/mL Insuf ficie ncy: 20 - 29 ng/mL Optim al: > or = 30 ng/mL For 25-OH Vitam in D testi ng on patie nts on D2-wheeler pplem entat ion and patie nts for whom quant itati on of D2 and D3 fract ions is requi red, the [facility] e[facility](TM ) 25-OH VIT D, (D2,D 3), LC/MS /MS is recom jaylin d: order code 18968 (farshad ents >2yrs ). See Note 1 Note 1 For addit ional infor ryan mann e refer to http: //[facility] nicole Waldron stDia gnost ics.c om/fa q/FAQ 199 (This link is being provi ded for infor francy hernandez/ educdaniella holt purpo ses only. ) Not Available [facility] [place] [facility] [address] [place] [address] B, [place], [address], 06/28/2024 06:40:29 06/26/19 25 06/28/2024 HEMOG LOBIN A1C hemoglobin A1C 5.4 %_of_ total _HGB <5.7 normal For the purpo se of rhonda cuellarg for the prese nce of diabe kemi: <5.7% Consi stent with the absen ce of diabe kemi 5.7-6 .4% Consi stent with incre ased risk for diabe kemi (pred iabet es) > or =6.5% Consi stent with diabe kemi This assay resul t is consi stent with a decre ased risk of diabe kemi. Curre ntly, no conse nsus exist s [place] dillon use of hemog lobin A1c for diagn osis of diabe kemi in child radha. Accor ding to Ameri can Diabe kemi Assoc iatio n (ADA) guide lines , hemog lobin A1c <7.0% repre sents optim al contr ol in non-p regna nt diabe tic patie nts. Diffe rent metri cs may apply to speci fic patie nt popul ation s. Stand ards of Medic al Care in Diabe kemi(A DA). Not Available [facility] [place] [facility] [address] [place], [place], [address], 06/28/2024 06:40:29 Result Notes None recorded. Problems Name Problem SNOMED Code Status Onset Date Resolution Date Notes Provider Name and Address Organization Details Recorded Time Obesity 808116630 Active 2023 JESUS BIRD DNP [address] [place] [address],[address] [place] [address], [place], [address] , [facility]. - [facility] 4 16:04:32 Hypothyroidis m 51730940 Active 2023 JESUS BIRD DNP [address] [place] [address],[address] [place] [address], [place], [address] , [facility]. - [facility] 4 21:48:16 Essential hypertension 28686324 Active 2023 JESUS BIRD DNP [address] [place] [address],[address] [place] [address], [place], [address] , [facility]. - [facility] 4 21:50:52 Iron deficiency anemia 81931194 Active 2023 JESUS BIRD DNP [address] [place] [address],[address] [place] [address], [place], [address] , [facility]. - [facility] 4 21:50:53 Problem Notes None recorded. Procedures Surgical History Date Name Laterality Status Provider Name and Address Organization Details Recorded Time Cholecystectomy completed JESUS BIRD DNP [address] [place] [address],[address] [place] [address], [place], [address], [facility] 08/13/2023 21:55:37 delivery completed WIL BIRD DNP [address] [place] [address],[address] [place] [address], [place], [address], [place] [facility]. - [facility] 08/13/2023 21:55:41 Imaging Results None recorded. Procedure Notes None recorded. Medical Equipment None Reported. Allergies No known drug allergies Medications Name Sig Start Date Stop Date Status Note LastModified by Organization Details LastModified Time neomycin-po lymyxin-hyd rocort 3.5 mg/mL-10,00 0 unit/mL-1 % ear solution INSTILL 2 DROPS IN AFFECTED EAR 3 TIMES A DAY FOR 10 DAYS 08/12 completed Not Available Not Available Not Available atorvastati n 20 mg tablet TAKE 1 TABLET BY MOUTH AT BEDTIME active Not Available Not Available No t Available phentermine 15 mg capsule TAKE 1 CAPSULE (15 MG) BY MOUTH ONCE DAILY BEFORE BREAKFAST 08/12 completed Not Available Not Available Not Available levothyroxi ne 88 mcg tablet TAKE 1 TABLET BY MOUTH EVERY DAY active Not Available Not Available No t Available ofloxacin 0.3 % ear drops INSTILL 5 DROPS INTO AFFECTED EAR(S) TWICE A DAY FOR 7 DAYS 08/12 completed Not Available Not Available Not Available amoxicillin 875 mg tablet TAKE 1 TABLET BY MOUTH TWICE A DAY FOR 7 DAYS 08/12 completed Not Available Not Available Not Available lisinopril 10 mg tablet TAKE 1 TABLET BY MOUTH TWICE A DAY 09/15 completed Not Available Not Available Not Available docusate sodium 100 mg capsule TAKE 1 CAPSULE BY MOUTH 2 TIMES A DAY NEEDED FOR CONSTIPAT ION 08/12 completed Not Available Not Available Not Available lisinopril 5 mg tablet Take 1 tablet every day by oral route. active Not Available Not Available No t Available hydrochloro thiazide 25 mg tablet TAKE 1 TABLET BY MOUTH EVERY DAY active Not Available Not Available No t Available amoxicillin 875 mg-potassiu m clavulanate 125 mg tablet TAKE 1 TABLET BY MOUTH TWICE A DAY FOR 7 DAYS 08/12 completed Not Available Not Available Not Available oxycodone 5 mg tablet TAKE 1 TABLET BY MOUTH EVERY 4 HOURS NEEDED FOR PAIN (SCALE SCORE 7-10) 08/12 completed Not Available Not Available Not Available bupropion HCl XL 150 mg 24 hr tablet, extended release TAKE 1 TABLET EVERY DAY BY ORAL ROUTE IN THE MORNING. active Not Available Not Available No t Available sodium fluoride 1.1 % dental cream USE DIRECTED BEFORE BEDTIME 03/20 /2024 completed Not Available Not Available Not Available ferrous sulfate active Not Available Not Available Not Available Vitamin B12 active Not Available Not A vailable Not Available Mounjaro 7.5 mg/0.5 mL subcutaneou s pen injector Inject 7.5 mg every week by subcutane ous route as directed. 04/28 completed Not Available Not Available Not Available Mounjaro 15 mg/0.5 mL subcutaneou s pen injector Inject 15 mg every week by subcutane ous route as directed. 2024 active Not Available Not Available Not Avai lable Mounjaro 10 mg/0.5 mL subcutaneou s pen injector Inject 10 mg every week by subcutane ous route as directed. 04/28 completed Not Available Not Available Not Available Mounjaro 12.5 mg/0.5 mL subcutaneou s pen injector Inject 12.5 mg every week by subcutane ous route as directed. 06/16 completed Not Available Not Available Not Available Vitals Date Recorded Body weight Body height Provider Name and Address Organization Details Last Updated DateTime 05/31/2024 50653.183760 g 162.56 cm Not Available [facility] 05/31/2024 07:53:31 Date Recorded Body weight Body height Provider Name and Address Organization Details Last Updated DateTime 06/01/2024 86839.630458 1 g 162.56 cm Not Available [facility] 06/01/2024 07:33:21 Date Recorded Body weight Body height Provider Name and Address Organization Details Last Updated DateTime 06/04/2024 85982.780703 9 g 162.56 cm Not Available [facility] 06/04/2024 11:08:26 Date Recorded Body weight Body height Provider Name and Address Organization Details Last Updated DateTime 06/07/2024 77171.661142 6 g 162.56 cm Not Available [facility] 06/07/2024 07:28:24 Date Recorded Body weight Body height Provider Name and Address Organization Details Last Updated DateTime 06/08/2024 83209.223344 6 g 162.56 cm Not Available [facility] 06/08/2024 07:28:26 Date Recorded Body weight Body height Body weight Body height Body weight Body height Provider Name and Address Organization Details Last Updated DateTime 06/09/2024 52269.67 2171 g 162.56 cm 96174.6 81436 g 162.56 cm 61230.6 61711 g 162.56 cm Not Available [facility] 07:08:42 Date Recorded Body weight Body height Provider Name and Address Organization Details Last Updated DateTime 06/10/2024 51569.310687 9 g 162.56 cm Not Available [facility] 06/10/2024 05:58:23 Date Recorded Body weight Body height Provider Name and Address Organization Details Last Updated DateTime 06/11/2024 83762.015154 8 g 162.56 cm Not Available [facility] 06/11/2024 06:13:25 Date Recorded Body height Body mass index (BMI) Body weight Provider Name and Address Organization Details Last Updated DateTime 06/14/2024 162.56 cm 27.1 kg/m2 12668.88 g JESSICA VILLELA, [address] [facility], [place], [address], [facility] [place] [facility] 06/14/2024 17:36:30 Date Recorded Body height Body mass index (BMI) Body weight Provider Name and Address Organization Details Last Updated DateTime 06/16/2024 162.56 cm 27.1 kg/m2 11807.88 g JESUS BIRD, [address], [place], [address], [facility] 06/16/2024 10:02:22 Date Recorded Body weight Body height Provider Name and Address Organization Details Last Updated DateTime 06/17/2024 05543.579156 1 g 162.56 cm Not Available [facility] 06/17/2024 07:13:41 Date Recorded Body weight Body height Provider Name and Address Organization Details Last Updated DateTime 06/21/2024 71816.039160 7 g 162.56 cm Not Available [facility] 06/21/2024 07:14:06 Date Recorded Body weight Body height Provider Name and Address Organization Details Last Updated DateTime 06/23/2024 99822.807159 2 g 162.56 cm Not Available [facility] 06/23/2024 14:13:38 Date Recorded Body weight Body height Provider Name and Address Organization Details Last Updated DateTime 06/24/2024 71144.575786 5 g 162.56 cm Not Available [facility] 06/24/2024 06:54:47 Date Recorded Body weight Body height Provider Name and Address Organization Details Last Updated DateTime 06/26/2024 01467.854127 1 g 162.56 cm Not Available [facility] 06/26/2024 09:48:23 Date Recorded Body weight Body height Provider Name and Address Organization Details Last Updated DateTime 06/29/2024 69713.977513 8 g 162.56 cm Not Available [facility] 06/29/2024 14:38:22 Date Recorded Body weight Body height Provider Name and Address Organization Details Last Updated DateTime 06/30/2024 21338.910915 1 g 162.56 cm Not Available [facility] 06/30/2024 16:13:19 Date Recorded Body weight Body height Body weight Body height Provider Name and Address Organization Details Last Updated DateTime 07/01/2024 87089.526 2865 g 162.56 cm 97721.615 5783 g 162.56 cm Not Available [facility] 07/01/2024 13:53:33 Date Recorded Body weight Body height Provider Name and Address Organization Details Last Updated DateTime 07/05/2024 82558.592004 1 g 162.56 cm Not Available [facility] 07/05/2024 13:03:25 Date Recorded Body weight Body height Provider Name and Address Organization Details Last Updated DateTime 07/07/2024 56278.794889 3 g 162.56 cm Not Available [facility] 07/07/2024 07:28:24 Date Recorded Body weight Body height Provider Name and Address Organization Details Last Updated DateTime 07/08/2024 66388.550035 5 g 162.56 cm Not Available [facility] 07/08/2024 07:48:35 Date Recorded Body weight Body height Provider Name and Address Organization Details Last Updated DateTime 07/10/2024 73826.866124 6 g 162.56 cm Not Available [facility] 07/10/2024 13:53:20 Date Recorded Body weight Body height Provider Name and Address Organization Details Last Updated DateTime 07/13/2024 39083.650999 2 g 162.56 cm Not Available [facility] 07/13/2024 06:58:39 Date Recorded Body weight Body height Provider Name and Address Organization Details Last Updated DateTime 07/14/2024 58240.851728 9 g 162.56 cm Not Available [facility] 07/14/2024 11:53:22 Date Recorded Body weight Body height Provider Name and Address Organization Details Last Updated DateTime 07/17/2024 98064.983711 9 g 162.56 cm Not Available [facility] 07/17/2024 12:18:22 Date Recorded Body weight Body height Provider Name and Address Organization Details Last Updated DateTime 07/19/2024 61433.184299 3 g 162.56 cm Not Available [facility] 07/19/2024 06:58:28 Date Recorded Body weight Body height Provider Name and Address Organization Details Last Updated DateTime 07/21/2024 57964.527596 7 g 162.56 cm Not Available [facility] 07/21/2024 07:53:24 Date Recorded Body weight Body height Provider Name and Address Organization Details Last Updated DateTime 07/29/2024 32225.653774 2 g 162.56 cm Not Available [facility] 07/29/2024 07:28:29 Date Recorded Body weight Body height Provider Name and Address Organization Details Last Updated DateTime 07/31/2024 36373.202103 9 g 162.56 cm Not Available [facility] 07/31/2024 09:28:32 Date Recorded Body weight Body height Provider Name and Address Organization Details Last Updated DateTime 08/02/2024 29585.035093 4 g 162.56 cm Not Available [facility] 08/02/2024 14:28:27 Date Recorded Body weight Body height Provider Name and Address Organization Details Last Updated DateTime 08/04/2024 72339.518021 1 g 162.56 cm Not Available [facility] 08/04/2024 07:03:39 Date Recorded Body weight Body height Provider Name and Address Organization Details Last Updated DateTime 08/06/2024 50791.557810 g 162.56 cm Not Available [facility] 08/06/2024 07:48:16 Date Recorded Body weight Body height Provider Name and Address Organization Details Last Updated DateTime 08/09/2024 46420.343076 9 g 162.56 cm Not Available [facility] 08/09/2024 13:58:12 Date Recorded Body weight Body height Body weight Body height Provider Name and Address Organization Details Last Updated DateTime 08/10/2024 25139.466 1663 g 162.56 cm 02583.402 299 g 162.56 cm Not Available [facility] 08/10/2024 12:08:13 Date Recorded Body weight Body height Body weight Body height Provider Name and Address Organization Details Last Updated DateTime 08/11/2024 69721.936 1062 g 162.56 cm 61384.309 1869 g 162.56 cm Not Available [facility] 08/11/2024 12:58:16 Date Recorded Body weight Body height Provider Name and Address Organization Details Last Updated DateTime 08/12/2024 66450.544166 2 g 162.56 cm Not Available [facility] 08/12/2024 17:03:22 Date Recorded Body weight Body height Provider Name and Address Organization Details Last Updated DateTime 08/14/2024 85674.583487 8 g 162.56 cm Not Available [facility] 08/14/2024 14:38:13 Date Recorded Body weight Body height Provider Name and Address Organization Details Last Updated DateTime 08/16/2024 46259.706385 5 g 162.56 cm Not Available [facility] 08/16/2024 13:38:15 Date Recorded Body weight Body height Provider Name and Address Organization Details Last Updated DateTime 08/18/2024 25792.219281 7 g 162.56 cm Not Available [facility] 08/18/2024 07:23:32 Date Recorded Body weight Body height Provider Name and Address Organization Details Last Updated DateTime 08/21/2024 16156.601017 9 g 162.56 cm Not Available [facility] 08/21/2024 09:43:17 Date Recorded Body weight Body height Provider Name and Address Organization Details Last Updated DateTime 08/24/2024 97224.882593 7 g 162.56 cm Not Available [facility] 08/24/2024 07:48:19 Date Recorded Body weight Body height Body weight Body height Body weight Body height Provider Name and Address Organization Details Last Updated DateTime 08/25/2024 65379.10 74922 g 162.56 cm 11632.3 657330 g 162.56 cm 16535.7 372046 g 162.56 cm Not Available [facility] 13:53:55 Date Recorded Body weight Body weight Body height Provider Name and Address Organization Details Last Updated DateTime 08/31/2024 32351.79541 g 86628.2213 061 g 162.56 cm Not Available [facility] 08/31/2024 07:38:23 Date Recorded Body weight Body weight Provider Name and Address Organization Details Last Updated DateTime 09/02/2024 74463.78683 g 17336.03193 g Not Available [facility] 09/02/2024 12:03:17 Date Recorded Body weight Provider Name an d Address Organization Details Last Updated DateTime 09/04/2024 03592.784 g Not Available [facility] 09/04/2024 12:37:22 Date Recorded Body weight Provider Name an d Address Organization Details Last Updated DateTime 09/06/2024 71029.99812 g Not Available [facility] 09/06/2024 06:57:21 Date Recorded Body weight Provider Name an d Address Organization Details Last Updated DateTime 09/11/2024 03489.08623 g Not Available [facility] 09/11/2024 14:47:13 Date Recorded Body weight Provider Name an d Address Organization Details Last Updated DateTime 09/13/2024 70029.05856 g Not Available [employer] 09/13/2024 06:56:33 Date Recorded Body height Body mass index (BMI) Body weight Provider Name and Address Organization Details Last Updated DateTime 09/14/2024 162.56 cm 26.2 kg/m2 08584.91 g JESSICA VILLELA, RD [address] [place] [address],[address] [place] [address], [place], [address], [facility] 09/14/2024 20:51:53 Date Recorded Body height Body mass index (BMI) Body weight Provider Name and Address Organization Details Last Updated DateTime 09/15/2024 162.56 cm 26.2 kg/m2 07496.91 g JESUS BIRD, [address] [facility], [place], [address], [facility] [employer] [facility] 09/15/2024 20:49:28 Date Recorded Body weight Provider Name an d Address Organization Details Last Updated DateTime 09/17/2024 14885.99433 g Not Available [facility] 09/17/2024 06:33:33 Date Recorded Body weight Provider Name an d Address Organization Details Last Updated DateTime 09/22/2024 44985.90319 g Not Available [facility] 09/22/2024 06:22:30 Date Recorded Body weight Provider Name an d Address Organization Details Last Updated DateTime 09/24/2024 87487.90761 g Not Available [facility] 09/24/2024 06:37:04 Date Recorded Body weight Provider Name an d Address Organization Details Last Updated DateTime 09/30/2024 92689.29050 g Not Available [facility] 09/30/2024 06:05:36 Date Recorded Heart rate Heart rate Heart rate Systolic And Diastolic Systolic And Diastolic Systolic And Diastolic Provider Name and Address Organization Details Last Updated DateTime 82 /min 83 /min 58 /min 126/88 mm[Hg] 121/86 mm[Hg] 114/76 mm[Hg] Not Available [facility] 21:58:15 Date Recorded Body weight Provider Name an d Address Organization Details Last Updated DateTime 10/02/2024 62538.80168 g Not Available [facility] 10/02/2024 15:11:13 Date Recorded Body weight Provider Name an d Address Organization Details Last Updated DateTime 10/03/2024 66043.38507 g Not Available [facility] 10/03/2024 07:56:20 Date Recorded Body weight Body weight Provider Name and Address Organization Details Last Updated DateTime 10/05/2024 16734.87806 g 10789.95301 g Not Available [facility] 10/05/2024 06:53:33 Date Recorded Body weight Provider Name an d Address Organization Details Last Updated DateTime 10/11/2024 55717.94633 g Not Available [facility] 10/11/2024 19:35:19 Date Recorded Body weight Body weight Provider Name and Address Organization Details Last Updated DateTime 10/12/2024 30501.91731 g 02679.0228 g Not Available [facility] 10/12/2024 18:12:13 Date Recorded Body weight Body weight Provider Name and Address Organization Details Last Updated DateTime 10/13/2024 85858.50963 g 37559.14820 g Not Available [facility] 10/13/2024 18:28:14 Date Recorded Body weight Provider Name an d Address Organization Details Last Updated DateTime 10/15/2024 67569.31027 g Not Available [facility] 10/15/2024 07:00:43 Date Recorded Body weight Body weight Provider Name and Address Organization Details Last Updated DateTime 10/16/2024 16967.4408 g 46833.49452 g Not Available [facility] 10/16/2024 14:50:21 Date Recorded Body weight Provider Name an d Address Organization Details Last Updated DateTime 10/17/2024 72969.78588 g Not Available [facility] 10/17/2024 12:40:25 Date Recorded Body weight Provider Name an d Address Organization Details Last Updated DateTime 10/21/2024 10705.54308 g Not Available [facility] 10/21/2024 07:37:18 Date Recorded Body weight Provider Name an d Address Organization Details Last Updated DateTime 10/22/2024 01571.64689 g Not Available [facility] 10/22/2024 07:06:16 Date Recorded Body weight Provider Name an d Address Organization Details Last Updated DateTime 10/23/2024 48457.29684 g Not Available [facility] 10/23/2024 19:12:14 Date Recorded Body weight Provider Name an d Address Organization Details Last Updated DateTime 10/24/2024 54943.38776 g Not Available [facility] 10/24/2024 09:11:52 Date Recorded Body weight Provider Name an d Address Organization Details Last Updated DateTime 10/25/2024 62893.586 g Not Available [facility] 10/25/2024 08:44:13 Date Recorded Body weight Provider Name an d Address Organization Details Last Updated DateTime 11/03/2024 74237.02970 g Not Available [facility] 11/03/2024 06:14:39 Date Recorded Body weight Provider Name an d Address Organization Details Last Updated DateTime 11/15/2024 25791.94962 g Not Available [facility] 11/15/2024 07:11:44 Date Recorded Body weight Provider Name an d Address Organization Details Last Updated DateTime 11/18/2024 82956.36148 g Not Available [facility] 11/18/2024 07:39:18 Date Recorded Body weight Provider Name an d Address Organization Details Last Updated DateTime 11/24/2024 13269.83491 g Not Available [facility] 11/24/2024 06:51:13 Date Recorded Body weight Body weight Provider Name and Address Organization Details Last Updated DateTime 11/28/2024 47862.18431 g 26579.42407 g Not Available [facility] 11/28/2024 13:37:22 Date Recorded Body weight Provider Name an d Address Organization Details Last Updated DateTime 12/01/2024 38095.80378 g Not Available [facility] 12/01/2024 07:42:48 Date Recorded Body weight Body weight Provider Name and Address Organization Details Last Updated DateTime 12/02/2024 19460.85628 g 57057.0052 g Not Available [facility] 12/02/2024 07:02:44 Date Recorded Body weight Provider Name an d Address Organization Details Last Updated DateTime 12/03/2024 89325.13934 g Not Available [facility] 12/03/2024 06:44:13 Date Recorded Body weight Provider Name an d Address Organization Details Last Updated DateTime 12/06/2024 25534.1404 g Not Available [facility] 12/06/2024 07:20:23 Date Recorded Body weight Provider Name an d Address Organization Details Last Updated DateTime 12/07/2024 85823.90587 g Not Available [facility] 12/07/2024 07:28:15 Date Recorded Body weight Body weight Provider Name and Address Organization Details Last Updated DateTime 12/13/2024 01820.68431 g 89380.85543 g Not Available [facility] 12/13/2024 07:04:49 Date Recorded Body weight Provider Name an d Address Organization Details Last Updated DateTime 12/15/2024 41201.99323 g Not Available [facility] 12/15/2024 07:33:19 Date Recorded Body height Body mass index (BMI) Body weight Provider Name and Address Organization Details Last Updated DateTime 02/18/2024 162.56 cm 27 kg/m2 79691.72 g JESSICA VILLELA, [address], [place], [address], [facility] 02/18/2024 17:58:34 Date Recorded Body weight Body height Provider Name and Address Organization Details Last Updated DateTime 02/18/2024 55445.379341 8 g 162.56 cm Not Available [facility] 02/18/2024 07:43:48 Date Recorded Body weight Body height Provider Name and Address Organization Details Last Updated DateTime 02/20/2024 87468.704875 5 g 162.56 cm Not Available [facility] 02/20/2024 07:38:48 Date Recorded Body weight Body height Provider Name and Address Organization Details Last Updated DateTime 2024 33756.691189 8 g 162.56 cm Not Available [facility] 2024 07:53:35 Date Recorded Body weight Body height Provider Name and Address Organization Details Last Updated DateTime 03/02/2024 37294.391992 6 g 162.56 cm Not Available [facility] 03/02/2024 07:03:40 Date Recorded Body weight Body height Provider Name and Address Organization Details Last Updated DateTime 03/03/2024 85669.052590 9 g 162.56 cm Not Available [facility] 03/03/2024 06:58:41 Date Recorded Body weight Body height Provider Name and Address Organization Details Last Updated DateTime 03/10/2024 39014.517898 4 g 162.56 cm Not Available [facility] 03/10/2024 07:28:40 Date Recorded Body weight Body height Provider Name and Address Organization Details Last Updated DateTime 03/13/2024 24063.960450 3 g 162.56 cm Not Available [facility] 03/13/2024 07:49:00 Date Recorded Body weight Body height Provider Name and Address Organization Details Last Updated DateTime 03/16/2024 07550.233137 7 g 162.56 cm Not Available [facility] 03/16/2024 07:48:44 Date Recorded Body weight Body height Provider Name and Address Organization Details Last Updated DateTime 03/17/2024 28049.629565 2 g 162.56 cm Not Available [facility] 03/17/2024 07:33:51 Date Recorded Body weight Body height Provider Name and Address Organization Details Last Updated DateTime 03/24/2024 76433.444502 9 g 162.56 cm Not Available [facility] 03/24/2024 07:43:57 Date Recorded Body weight Body height Provider Name and Address Organization Details Last Updated DateTime 03/27/2024 36647.273915 5 g 162.56 cm Not Available [facility] 03/27/2024 11:38:40 Date Recorded Body weight Body height Provider Name and Address Organization Details Last Updated DateTime 04/11/2024 02826.658976 7 g 162.56 cm Not Available [facility] 04/11/2024 11:13:51 Date Recorded Body weight Body height Provider Name and Address Organization Details Last Updated DateTime 04/12/2024 45149.172821 9 g 162.56 cm Not Available [facility] 04/12/2024 07:09:01 Date Recorded Body weight Body height Body weight Body height Provider Name and Address Organization Details Last Updated DateTime 04/14/2024 91395.017 4911 g 162.56 cm 67899.935 3275 g 162.56 cm Not Available [facility] 04/14/2024 07:19:01 Date Recorded Body weight Body height Body weight Body height Provider Name and Address Organization Details Last Updated DateTime 04/26/2024 65687.530 6659 g 162.56 cm 27069.710 1014 g 162.56 cm Not Available [facility] 04/26/2024 12:24:30 Date Recorded Body weight Body height Body weight Body height Provider Name and Address Organization Details Last Updated DateTime 04/27/2024 47531.410 4255 g 162.56 cm 39521.410 4255 g 162.56 cm Not Available [facility] 04/27/2024 07:58:47 Date Recorded Body weight Body height Provider Name and Address Organization Details Last Updated DateTime 04/28/2024 72904.255479 g 162.56 cm Not Available [facility] 04/28/2024 07:43:55 Date Recorded Body weight Body height Provider Name and Address Organization Details Last Updated DateTime 04/29/2024 38697.703387 2 g 162.56 cm Not Available [facility] 04/29/2024 07:43:49 Date Recorded Body weight Body height Provider Name and Address Organization Details Last Updated DateTime 04/30/2024 91751.014065 g 162.56 cm Not Available [facility] 04/30/2024 07:39:00 Date Recorded Body weight Body height Provider Name and Address Organization Details Last Updated DateTime 05/03/2024 13230.250389 2 g 162.56 cm Not Available [facility] [employer] 05/03/2024 07:28:48 Date Recorded Body weight Body height Provider Name and Address Organization Details Last Updated DateTime 05/04/2024 42429.381810 9 g 162.56 cm Not Available [facility] 05/04/2024 07:48:46 Date Recorded Body weight Body height Body weight Body height Provider Name and Address Organization Details Last Updated DateTime 05/05/2024 69331.594 46 g 162.56 cm 89005.118 6565 g 162.56 cm Not Available [facility] 05/05/2024 07:33:42 Date Recorded Body weight Body height Provider Name and Address Organization Details Last Updated DateTime 05/11/2024 09390.409705 1 g 162.56 cm Not Available [facility] 05/11/2024 09:08:56 Date Recorded Body weight Body height Provider Name and Address Organization Details Last Updated DateTime 05/14/2024 08842.595821 8 g 162.56 cm Not Available [facility] 05/14/2024 07:48:24 Date Recorded Body weight Body height Provider Name and Address Organization Details Last Updated DateTime 05/16/2024 39694.208624 4 g 162.56 cm Not Available [facility] 05/16/2024 10:23:25 Date Recorded Body weight Body height Provider Name and Address Organization Details Last Updated DateTime 05/18/2024 08029.403254 5 g 162.56 cm Not Available [facility] [employer] 05/18/2024 07:33:19 Date Recorded Body weight Body height Provider Name and Address Organization Details Last Updated DateTime 05/19/2024 80839.010269 5 g 162.56 cm Not Available [facility] [employer] 05/19/2024 14:58:29 Date Recorded Body weight Body height Provider Name and Address Organization Details Last Updated DateTime 05/23/2024 86166.502108 3 g 162.56 cm Not Available [facility] [employer] 05/23/2024 15:18:18 Date Recorded Body weight Body height Provider Name and Address Organization Details Last Updated DateTime 05/25/2024 87756.812756 1 g 162.56 cm Not Available [facility] 05/25/2024 07:33:26 Social History None recorded. Functional Status None recorded. Mental Status None recorded. Family History Nothing Reported. Medical History No medical history recorded. Gynecological HistoryNo gynecological history recorded. Obstetrics History GPAL:G 0 P 0 0 0 0 Past Encounters Encounter ID Performer Location Encounter Start Date Encounter Closed Date Diagnosis/Indication Diagnosis SNOMED-CT Code Diagnosis ICD10 Code Diagnosis Note [id number] JESUS BIRD, DNP [address] [address] 08/13/2023 16:04:01 08/16/2023 03:58:17 Hypothyroidism 40437061 E03.9 Stable. Managed per PCP. Obesity 772780553 E66.9 Class III (now BMI 26 after over 100 lb weight loss), HTN, hypothyroi dism, CHRISTOPHER:--Revi ewed basic physiology of weight regulation --Low GI diet, protein breakfast, food order--Exe rcise as tolerated CV and resistance training-- Utilize [facility]--RD as scheduled- -Track weight weekly in [facility]--Sh ift calories to earlier in the day--Revie wed medication s associated with weight gain, counseled on alternativ es to be discussed with prescribin g provide--A OM selection resume MJ at 7.5mg dose. discussed shortage, reviewed dosing and side effects-- denies fmhx/pmh: MEN2, MTC, Pancreatit is-- discussed etoh precaution s, MOA, side effects, injection technique, & dosing schedule-- Future AOM considerat ions: metformin- -previousl y tried AOMs and reason for discontinu ation:MJ (was unable to pay for it one coupon ) The patient verbalized understand ing of all instructio ns/educati on received today regarding the plan of care and/or diagnosis. The patient has been educated and demonstrat es understand ing of the risks and benefits of the prescribed medication /s today and consents to treatment with these medication /s. Total Time Spent on the date of the encounter: 60minutes which includes visit preparatio n time, time reviewing and independen tly interpreti ng results, face-to-fa ce time with the patient, counseling /educating the patient/fa preeti members/ca regivers, ordering medication s/labs, care coordinati on, documentin g clinical informatio n in the electronic medical record, following up on referrals/ results and communicat ing with related healthcare profession als as needed. Follow up:RD as scheduledM e in 2 months Essential hypertension 33048966 I10 Stable. Has gradually reduced BP dose over time due to reduction in BP with WL. Managed per PCP. Iron defic iency anemia 58895485 D50.9 On recent labs. Startin iron replacemen t (oral). Managed per PCP. [id number] JESSICA VILLELA RD [address] [address] 11/06/2023 17:03:23 11/11/2023 03:59:19 Obesity 411659793 E66.9 Iron defic iency anemia 37666934 D50.9 [id number] JESUS BIRD DNP [address] [address] 11/13/2023 17:15:14 11/18/2023 04:02:24 Obesity 489223479 E66.9 Class III (now BMI 26 after over 100 lb weight loss), HTN, hypothyroi dism, CHRISTOPHER Failed AOMs: none Plan:incre ase to MJ 12.5mg if pharmacy has it - if not will send over 7.5mg since 10 mg is on backorder Future AOM considerat ions:add metformin ER or switch to GLP Drug-induc ed Wt Gain:none The patient verbalized understand ing of all instructio ns/educati on received today regarding the plan of care and/or diagnosis. The patient has been educated and demonstrat es understand ing of the risks and benefits of the prescribed medication /s today and consents to treatment with these medication /s. Total Time Spent on the date of the encounter: 40 minutes which includes visit preparatio n time, time reviewing and independen tly interpreti ng results, face-to-fa ce time with the patient, counseling /educating the patient/fa preeti members/ca regivers, ordering medication s/labs, care coordinati on, documentin g clinical informatio n in the electronic medical record, following up on referrals/ results and communicat ing with related healthcare profession als as needed. Follow up:RD as scheduledM e in 3 months Hypothyroidism 91445642 E03.9 Stable. Managed per PCP. Essential hypertension 45051434 I10 Stable. Has gradually reduced BP dose over time due to reduction in BP with WL. Managed per PCP. Iron defic iency anemia 92330672 D50.9 On iron replacemen t. Managed per PCP. [id number] JESSICA VILLELA RD [address] [address] 02/18/2024 17:33:00 02/21/2024 04:04:42 Obesity 434707104 E66.9 Iron defic iency anemia 85534281 D50.9 Hypothyroidism 57881657 E03.9 Essential hypertension 57911239 I10 [id number] JESSICA VIL[address]LA [address] [address] 06/14/2024 17:23:57 06/18/2024 04:04:05 Obesity 313438223 E66.9 Essential hypertension 63005750 I10 Iron defic iency anemia 35170380 D50.9 [id number] JESUS BIRD DNP [address] [id number] 06/16/2024 10:01:08 06/22/2024 04:00:23 Obesity 498483317 E66.9 Class III (now BMI 26 after over 100 lb weight loss), HTN, hypothyroi dism, CHRISTOPHER Failed AOMs: none Plan:incre ase to MJ 15mg, recheck labs and ensure thyroid replacemen t is adequate Future AOM considerat ions:add metformin ER or switch to GLP Drug-induc ed Wt Gain:none The patient verbalized understand ing of all instructio ns/educati on received today regarding the plan of care and/or diagnosis. The patient has been educated and demonstrat es understand ing of the risks and benefits of the prescribed medication /s today and consents to treatment with these medication /s. Total Time Spent on the date of the encounter: 40 minutes which includes visit preparatio n time, time reviewing and independen tly interpreti ng results, face-to-fa ce time with the patient, counseling /educating the patient/fa preeti members/ca regivers, ordering medication s/labs, care coordinati on, documentin g clinical informatio n in the electronic medical record, following up on referrals/ results and communicat ing with related healthcare profession als as needed. Follow up:RD as scheduledM e in 3 months Hypothyroidism 73289064 E03.9 Stable. No fatigue, hair loss, constipati on. Managed per PCP. Recheck thyroid labs now. Essential hypertension 44805907 I10 Stable. Has gradually reduced BP dose over time due to reduction in BP with WL. Managed per PCP. Iron defic iency anemia 84149122 D50.9 On iron replacemen t. Managed per PCP. [id number] JESSICA VILLELA RD [address] [id number] 09/14/2024 20:29:09 09/17/2024 04:00:34 Obesity 451533705 E66.9 Essential hypertension 08352582 I10 Iron defic iency anemia 52209684 D50.9 [id number] Peyman Pierre MD [address] [id number] 09/15/2024 17:33:06 09/18/2024 04:01:45 Obesity 029536713 E66.9 Class III (now BMI 26 after over 100 lb weight loss), HTN, hypothyroi dism, CHRISTOPHER Failed AOMs: none Plan:cont MJ 15 mg, add bupropion in AM for appetite suppressio n Future AOM considerat ions:add metformin ER or switch to GLP Drug-induc ed Wt Gain:none The patient verbalized understand ing of all instructio ns/educati on received today regarding the plan of care and/or diagnosis. The patient has been educated and demonstrat es understand ing of the risks and benefits of the prescribed medication /s today and consents to treatment with these medication /s. Total Time Spent on the date of the encounter: 40 minutes which includes visit preparatio n time, time reviewing and independen tly interpreti ng results, face-to-fa ce time with the patient, counseling /educating the patient/fa preeti members/ca regivers, ordering medication s/labs, care coordinati on, documentin g clinical informatio n in the electronic medical record, following up on referrals/ results and communicat ing with related healthcare profession als as needed. Follow up:RD as scheduledM e in 3 months Hypothyroidism 76263015 E03.9 Stable, no dose adjustment s with recent labs. Essential hypertension 22327488 I10 Stable. Has gradually reduced BP dose over time due to reduction in BP with WL. Managed per PCP. Iron defic iency anemia 87117280 D50.9 PCP managing. Health Concerns Section Related Observation LastModified by Organization Detai ls LastModified Time None Recorded Concern Status LastModified by Organization Details LastModified Time None Recorded Advance Directives Directive None Recorded Payers Insurance Date Sequence Insurance Name Policy Number Policy Rankin Covered Member ID Rankin Member ID Guarantor Name 10/27/2024 [facility] [id number] [facility] Notes Date Note Type Note Provider Name and Address Organization Details Recorded Time 4 text/html Patient presents for weight management nutritional counseling -- 43 yr old Female with class 3 Obesity, High blood pressure, Thyroid disease - Hyperthyroidism, Thyroid disease - Hypothyroidism HIPAA compliant synchronous video visitI have confirmed that the patient is physically located in the [facility] t: 5'4 Weight:Highest weight/BMI: 257.0 lbs, BMI 44.1, aseline weight/BMI: 155.0 lbs, BMI 26.6Lowest adult weight/BMI: 160.0 lbs, BMI 27.5, 2023Last weight/BMI: 157.2 lbs, BMI 27.0Total weight loss (Highest - Last): -99.8 lbs / -38.8%Total weight loss (Baseline - Last): +2.2 lbs / +1.4%Last Blood Pressure: 95/68; Recorded on 11/24; DeviceAverage Blood pressure: 126/89; Range: 95-145/68-106; Dates: 08/17 - 11/24Last Pulse: 102; Recorded on 11/24; DeviceAverage Pulse: 84; Range: 51-116; Dates: 08/17 - 11/24 Weight @ [facility] 11/13/2023: 155 lbsCurrent Weight: 157.24 lbs Confirm AOM and dose:Mounjaro 7.5 mg -- struggling to find 12.5 mg dose right nowConfirm Frequency/Consistency:1x weeklyS/e:mild constipation Bowels- some constipation - takes laxatives as needed, incorporates green tea and magnesium and flax seed pt has not been consistent with her iron supplement as of late -- thinks this could be contributing to slightly lower energy levels at this time Appetite:appetite is increasing somewhatCravings:noticin g some increased cravings as of late Behavior ChangeSuccesses: consistency with Mounjaro, walking daily, was taken on BP medsAreas needing improvement: increased strength/resistance trainingBarriers: minimal Nutrition IntakeDietary Restrictions/Allergies: only eats chicken and egg whites, occasionally shrimpFood Recall:B: coffeeHour or two later: cottage cheese and blueberriesL: sandwich (panini) on low carb bread (chicken and peppers)D: egg whites, salad, occasionally adds a little rice or pitaS: yogurt, fiber one snacks, protein shake (premium plus)Brandi: waterAlcohol:occasionall y - socially -- vodka or hard seltzers Has been increasing fiber/vegetable consumption Physical Activity:tries for 2 (15) minute walks -- some toning exercises JESSICA VILLELA, RD [address] [facility],[address], [place], [address], [facility] [employer] - [place] [facility] 02/18/2024 17:58:52 5 text/html Patient presents for weight management nutritional counseling -- 44 yr old Female with class 3 Obesity, High blood pressure, Thyroid disease - Hyperthyroidism, Thyroid disease - Hypothyroidism HIPAA compliant synchronous video visitI have confirmed that the patient is physically located in the [facility] RD VisitPlan/Goals:1. Consistency with strength/resistance training -- goal of at least 1-2x per week. VitalsHeight: 5'4 Weight:Highest weight/BMI: 257.0 lbs, BMI 44.1, aseline weight/BMI: 155.0 lbs, BMI 26.6Lowest adult weight/BMI: 160.0 lbs, BMI 27.5, 2023Last weight/BMI: 157.8 lbs, BMI 27.1Total weight loss (Highest - Last): -99.2 lbs / -38.6%Total weight loss (Baseline - Last): +2.8 lbs / +1.8%Last Blood Pressure: Insufficient Number of ReadingsAverage Blood pressure: Insufficient Number of ReadingsLast Pulse: Insufficient Number of ReadingsAverage Pulse: Insufficient Number of Readings Weight @ MILLY 02/18/24: 157.24 lbsCurrent Weight: 157.8 lbsWeight Changes: maintained Confirm AOM and dose:Mounjaro 12.5 mgConfirm Frequency/Consistency: 1x weeklyS/e:mild constipation but better with increased fiber intake Appetite:feeling hungrier and weight loss is stagnant if not increasing slightly Behavior ChangeSuccesses: consistency with Mounjaro, walking 30 minutes on work daysAreas needing improvement: strength/resistance training Nutrition IntakeDietary Restrictions/Allergies:F ood Recall:B: coffee (black), protein shake (premier protein)L: 2 eggs, qatari yogurt and lentil crepeD: 2 egg whitesS: pecans, cottage cheeseBev: waterAlcohol: occasionally - socially -- vodka or hard seltzers SupplementsProbioticVita min DVitamin EVitamin CCalciumFish OilFlaxseed OilVitamin B12 Physical Activity:walking daily when at work, two 15 minutes walks (30 minutes total) -- trying for more steps each day-treadmill at home JESSICA VILLELA, RD [address] [facility],[address], [place], [address], [facility] [employer] [facility] [place] [facility] 06/14/2024 17:59:56 5 text/html ROS as noted in the HPI History of Present Illness:44 yr old Female with class 3 Obesity, High blood pressure, Thyroid disease - Hyperthyroidism, Thyroid disease - Hypothyroidism presents for evaluation. I have confirmed that the patient is physically located in the [facility] telemedicine service rendered via a real-time interactive audio and video communications system Visit 06/16/24: The patient presents for follow up today. It has been 7 mo since her MILLY. She is taking MJ 12.5mg weekly. Still experiencing more hunger and weight gain. Denies n/v, abd pain, reflux, constipation, or diarrhea. Due for labs - requisition to be sent by clinical team (patient case) Change in weight since last appointmentHighest/Basel ine wt: 257Wt @ MILLY:155Current wt: 157Wt change:+2 lbs Goal: 145 lbs Appetite/cravings: more hungry B: coffee with Premier Protein protein shake, egg whites, lentil crepeL: cottage cheese, yogurt with blueberries or other fruitD: quinoa with chicken and vegetablesSnacks: something sweet, popcorn Energy/mood/sleep: good/stable Exercise: 2-15 min walk/day when working, steps/stairs daily, gym occasionally ROS: 10+ performed, negative except pertinent positives noted above History of Present Illness:43 yr old Female with class 3 Obesity, High blood pressure, Thyroid disease - Hyperthyroidism, Thyroid disease - Hypothyroidism presents for evaluation. I have confirmed that the patient is physically located in the [facility] Visit11/13/2023The patient presents for follow up today. It has been 3 months since her IOV. Is taking MJ 7.5mg. She has regained about 5 lbs, but has been unable to obtain the 10 mg dose as planned. Has taken up to 15 mg previously and had no sig SE at any dose. Some constipation, relieved by mag citrate and prunex. Change in weight since last appointment:Highest/Base line wt:257lbsWt @ MILLY:155lbsCurrent wt:sameWt change:same Appetite (0= no hunger, 10= intense hunger)?more hungry Cravings (0= no cravings, 10= strong cravings)?yes for sweets Binging?No Hardest time(s) of day appetite/cravings-hannah:N /A (appetite is controlled) Triggers for Overeating:Lack of fullness Food recall (past 24 hours vs. a few go-to options):Breakfast:prote in shake, cottage cheese with blueberriesLunch:mediter ranean chickpea salad from [facility]Dinner: [facility] chicken wrap (/2) with low carb wrapSnacks: noneDrinks: water, black coffee Exercise:walking dajust started incorporating weights Sleep:good Depression/Anxiety/Mood: Energy(0= no energy, 10= intense energy):good ROS: 10+ performed, negative except pertinent positives noted above Last visitPt sought obesity care 2021 with [facility]. Had been taking MJ until 2 months ago (due to coupon expiring and being unable to pay for it) and lost over 100 lbs. She has regained about 10lbs since coming off of the medication, despite strict nutrition and daily exercise. Goal: to return and remain under 140 lbs, continue to have stable BP and thyroid functionPCP:Dante Carney MDVITALSHeit: 5'4 Weight: 155lbsHighest weight/BMI: 257.0 lbs, BMI 44.1, aseline weight/BMI: 155.0 lbs, BMI 26.6Lowest adult weight/BMI: 160.0 lbs, BMI 27.5, 2023Last weight/BMI: 155.0 lbs, BMI 26.6Total weight loss (Highest - Last): -102.0 lbs / -39.7%Total weight loss (Baseline - Last): 0.0 lbs / 0.0%Last Blood Pressure: 130s/80s (has not received cuff)WEIGHT HISTORYWeight gain coincided with: MedicalCurrent lifestyle factors: Stressful, Free/junk food availableMotivation for weight loss: Improve health, Increase mobility, To look or feel better, Specific health reasonChallenges: Always regain lost weight, Feeling too restricted by a diet or exercise program, Hard to stick to a diet/program, Schedule/lifestyle, Strong cravingsPrevious diets: high protein/low carbPrevious anti-obesity medications: MJPrevious bariatric surgeries/procedures/dev ices: noneDIETARY RECALL*eats very cleanincrease in appetite since being off MJ*EATING BEHAVIORHistory of Eating Disorder: NoBinge Eating: SometimesExcessive appetite: SometimesGrazing: SometimesCravings: AlwaysTrigger for Overeating: Yes - StressPercentage of Daily Calories consumed after dinnertime: 51-75%Eating window:Biggest Meal of the day: After-dinner snack, Dinner, Lunch, Afternoon snackWeekly Restaurant/Take out Meals:Dietary Strategies that are appealing: Low carbohydrate, Low fat, Meal replacements, Calorie countingFood sensitivities/restrictio ns:Foods/Drinks consumed regularly: Candy, Sweets, Baked goods, Processed/packaged food, Fast foodMiddle of the night eating: nonePHYSICAL ACTIVITYAverage daily steps: 2-5,000Activity Level: Lightly active (e.g., some light activity in daily life)Type of Activity: walking, liftingDaily or most daysSLEEPHours of sleep per night: 6OSA Dx: NoSnoring: Yes - MildWitnessed Apnea: NoTreating sleep apnea adequately: UnavailableDaytime Sleepiness: YesMedications to help with sleep: noneSTOP-BANG score: 2/7 *LOW RISK*Insomnia: YesPSYCHDepression: NoAnxiety: No PAST MEDICAL/SURGICAL HISTORYWeight Classification: class 3 obesityConfirmed insulin resistance diagnosis: NoCancer types: UnavailableOther diagnoses: High blood pressure, Thyroid disease - Hyperthyroidism, Thyroid disease - HypothyroidismSurgeries: cholecystectomy 09/15, c/sSOCIAL HISTORYOccupation:Mariela holt Status: MarriedChildren: YesAlcohol: YesInterested in drinking less: YesNicotine/Tobacco: NoRecreational drugs:History of drug abuse/addiction:FAMILY HISTORYOverweight/Obesit y: Yes - [id number], prediabetes, insulin resistance, PCOS: NoMEN2 or MTC: NoPancreatitis: NoHeart disease: NoMEDICATIONSMedications :see listALLERGIESNKDALABS/IM AGINGLabs from 07/18/23 (ordered by PCP) were reviewed in detail today with the patient. JESUS BIRD DNP [address] [place] [address],[address], [place], [address], [facility] [employer] [facility] [place] [facility] 06/16/2024 12:52:27 5 text/html Patient presents for weight management nutritional counseling -- 44 yr old Female with class 3 Obesity, High blood pressure, Thyroid disease - Hyperthyroidism, Thyroid disease - Hypothyroidism HIPAA compliant synchronous video visitI have confirmed that the patient is physically located in the [facility] RD VisitPlan/Goals:1. Continue to ensure a source of protein with every meal.2. Strength/resistance training -- Discussed the importance of strength training as a means to preserve muscle mass during weight loss as well as provide strength and balance, in addition to general benefits of exercise. Recommendations per guidelines are 2x per week. Activities include: lifting weights, resistance training, isometrics, yoga, pilates, boxing, martial arts. VitalsHeight: 5'4 Weight:Highest weight/BMI: 257.0 lbs, BMI 44.1, aseline weight/BMI: 155.0 lbs, BMI 26.6Lowest adult weight/BMI: 160.0 lbs, BMI 27.5, 2023Last weight/BMI: 152.8 lbs, BMI 26.2Total weight loss (Highest - Last): -104.2 lbs / -40.5%Total weight loss (Baseline - Last): -2.2 lbs / -1.4%Last Blood Pressure: Insufficient Number of ReadingsAverage Blood pressure: Insufficient Number of ReadingsLast Pulse: Insufficient Number of ReadingsAverage Pulse: Insufficient Number of Readings Weight @ MILLY 06/16/24: 155lbsCurrent Weight: 152.8 lbsWeight Changes since MILLY: -2.2 Confirm AOM and dose:Mounjaro 15 mgConfirm Frequency/Consistency:1x weekly on MondaysS/e:none reported at this time Appetite/Cravings:appeti te is reduced the first few days following the injection -- appetite increases as she gets closer to her next dose Behavior ChangeSuccesses: consistency with Mounjaro, walking, strength training, prioritizing protein intake incorporating moringa supplement to support digestionrecent labs indicated anemia -- pt is scheduled to meet with a new PCP in October Nutrition IntakeDietary Restrictions/Allergies:F ood Recall:B: protein shakeL: 2 eggs, qatari yogurt and lentil crepeD: 2 egg whitesS: pecans, cottage cheeseBev: water, teaAlcohol: occasionally - socially -- vodka or hard seltzers Physical Activity:walking daily when at work, two 15 minutes walks (30 minutes total) -- trying for at least 6k steps/day-treadmill at home-incorporating strength training at the gym JESSICA VILLELA, RD [address] [facility],[address], [place], [address], [employer] - [employer] [facility] 09/14/2024 20:52:43 text/html ROS as noted in the HPI History of Present Illness:44 yr old Female with class 3 Obesity, High blood pressure, Thyroid disease - Hyperthyroidism, Thyroid disease - Hypothyroidism presents for f/u. I have confirmed that the patient is physically located in the [facility] telemedicine service rendered via a real-time interactive audio and video communications system Visit 09/15/2024: The patient presents for follow up today. It has been 3 mo since her MILLY. She is taking MJ 15 mg weekly. Denies n/v, abd pain, reflux, constipation, or diarrhea. Change in weight since last appointmentHighest/Basel ine wt: 257Wt @ MILLY:157Current wt:153Wt change:-4 lbs Appetite/cravings: less hunger than previously Nutrition: unchangedhigh proteinB-coffee with protein shake and boiled eggsL-nuts with yogurtD-chicken and salad with vowhxhHbspih-vjymjbOem-r yennifer tea, green tea, lemon water Energy/mood/sleep: good/stable, sleeping well Exercise:10k steps per day ROS: 10+ performed, negative except pertinent positives noted above __Last visitPt sought obesity care 2021 with [facility]. Had been taking MJ until 2 months ago (due to coupon expiring and being unable to pay for it) and lost over 100 lbs. She has regained about 10lbs since coming off of the medication, despite strict nutrition and daily exercise. Goal: to return and remain under 140 lbs, continue to have stable BP and thyroid functionPCP:Dante Echavarria Abdirahman HENNESSYVITALSHeight: 5'4 Weight: 155lbsHighest weight/BMI: 257.0 lbs, BMI 44.1, aseline weight/BMI: 155.0 lbs, BMI 26.6Lowest adult weight/BMI: 160.0 lbs, BMI 27.5, 2023Last weight/BMI: 155.0 lbs, BMI 26.6Total weight loss (Highest - Last): -102.0 lbs / -39.7%Total weight loss (Baseline - Last): 0.0 lbs / 0.0%Last Blood Pressure: 130s/80s (has not received cuff)WEIGHT HISTORYWeight gain coincided with: MedicalCurrent lifestyle factors: Stressful, Free/junk food availableMotivation for weight loss: Improve health, Increase mobility, To look or feel better, Specific health reasonChallenges: Always regain lost weight, Feeling too restricted by a diet or exercise program, Hard to stick to a diet/program, Schedule/lifestyle, Strong cravingsPrevious diets: high protein/low carbPrevious anti-obesity medications: MJPrevious bariatric surgeries/procedures/dev ices: noneDIETARY RECALL*eats very cleanincrease in appetite since being off MJ*EATING BEHAVIORHistory of Eating Disorder: NoBinge Eating: SometimesExcessive appetite: SometimesGrazing: SometimesCravings: AlwaysTrigger for Overeating: Yes - StressPercentage of Daily Calories consumed after dinnertime: 51-75%Eating window:Biggest Meal of the day: After-dinner snack, Dinner, Lunch, Afternoon snackWeekly Restaurant/Take out Meals:Dietary Strategies that are appealing: Low carbohydrate, Low fat, Meal replacements, Calorie countingFood sensitivities/restrictio ns:Foods/Drinks consumed regularly: Candy, Sweets, Baked goods, Processed/packaged food, Fast foodMiddle of the night eating: nonePHYSICAL ACTIVITYAverage daily steps: 2-5,000Activity Level: Lightly active (e.g., some light activity in daily life)Type of Activity: walking, liftingDaily or most daysSLEEPHours of sleep per night: 6OSA Dx: NoSnoring: Yes - MildWitnessed Apnea: NoTreating sleep apnea adequately: UnavailableDaytime Sleepiness: YesMedications to help with sleep: noneSTOP-BANG score: 2/7 *LOW RISK*Insomnia: YesPSYCHDepression: NoAnxiety: No PAST MEDICAL/SURGICAL HISTORYWeight Classification: class 3 obesityConfirmed insulin resistance diagnosis: NoCancer types: UnavailableOther diagnoses: High blood pressure, Thyroid disease - Hyperthyroidism, Thyroid disease - HypothyroidismSurgeries: cholecystectomy 09/15, c/sSOCIAL HISTORYOccupation:[employer]iela holt Status: MarriedChildren: YesAlcohol: YesInterested in drinking less: YesNicotine/Tobacco: NoRecreational drugs:History of drug abuse/addiction:FAMILY HISTORYOverweight/Obesit y: Yes - [id number], prediabetes, insulin resistance, PCOS: NoMEN2 or MTC: NoPancreatitis: NoHeart disease: NoMEDICATIONSMedications :see listALLERGIESNKDALABS/IM AGINGLabs from 07/18/23 (ordered by PCP) were reviewed in detail today with the patient. JESUS BIRD, ELKIN [address] [place] [address],[address], [place], [address], [facility] [employer] - [facility] 09/15/2024 20:51:37 OBGyn Episode No OBEpisode recorded.
--- OUTSIDE RECORDS SUMMARY | 2024-12-17 07:23 | XMS_ITS | Patient Health Record ---
Author Organization [facility] [address] Address [address] [place] [address] Care Team Providers Care Internet Researcher Name Role Phone KLEVER BUTLER Unavailable [phone] Allergies No Known Allergies Reason For Referral [...] Status W/U Status Risk Notes Problem Hypothyroidism (25933859) Hypothyroidism, unspecified (E03.9) Active confirmed Problem Adult health examination (732065364) Encounter for general adult medical examination without abnormal findings (Z00.00) Active confirmed Problem Disease of blood AND/OR blood forming organ (63528546) Encounter for screening for diseases of the blood and blood-forming organs and certain disorders involving the immune mechanism (Z13.0) Active confirmed Problem Diabetes mellitus screening (046065482) Encounter for screening for diabetes mellitus (Z13.1) Active confirmed Problem Essential hypertension (64310659) Hypertension, unspecified type (I10) Active confirmed Problem Body mass index 25-29 - overweight (184281641) BMI 25.0-25.9,adult (Z68.25) Active confirmed Problem Vitamin B>12< deficiency anaemia (96182679) Anemia due to vitamin B12 deficiency, unspecified B12 deficiency type (D51.9) Active confirmed Problem BMI 25-29 - overweight (475350556) BMI 27.0-27.9,adult (Z68.27) Active confirmed Problem Screening for cardiovascular system disease (020668214) Screening for cardiovascular condition (Z13.6) Active confirmed Problem Obesity (815157154) Obesity due to excess calories without serious [...] Insured Coverage Start Date Coverage End Date [facility] [address] [place] [address] [phone] [id number] CAMRYN BARROW Self - patient is the insured Medications Administered Medication Instructions Date of Administration Dosage Notes MICC B12 INJECTION 01/16/2023 MICC B12 INJECTION 01/23/2023 MICC B12 INJECTION 03/15/2023 Semaglutide 01/16/2023 sema 0.25mg Semaglutide 01/23/2023 0.25 mg LLQ SQ Semaglutide 02/07/2023 lot# [id number] 0.25mg Semaglutide 02/13/2023 0.25 mg R tricep SQ Semaglutide 03/15/2023 0.5 mg LRQ SQ Semaglutide 03/22/2023 lot#[id number] 0.5mg Semaglutide 04/05/2023 Semaglutide 04/12/2023 1 Semaglutide 04/19/2023 1.0 mg R tricep SQ Semaglutide 04/26/2023 1 mL Semaglutide 05/03/2023 1.0 mg LLQ SQ Semaglutide 05/10/2023 1 mg lot#[id number] 1mg Semaglutide 05/24/2023 Semaglutide 07/12/2023 1 Medical (General) History Medical History History ICD Code hypertension Hypothyroidism overweight Surgical History Surgery Date(Month/Year) gallbladder 09/09/2022 Hospitalization History Reason Date(Month/Year) SAME SURGICAL
== END 2024-12-17 07:22 | disposition home or self-care (01) ==
LOC: HO.MAMMO 07:21
PROVIDERS: PCP Internal Medicine; Visit Provider Internal Medicine
DX: N64.89 Other specified disorders of breast (principal)
CPT/HCPCS: 76642; 77061; 77065

== ENCOUNTER → 2024-12-17 07:45 | Outpatient (BNV) | payer BC, SELFPAY | PROVIDERS: PCP Internal Medicine; Visit Provider Radiology Body Imaging | DX: N63.21 Unspecified lump in the left breast, upper outer quadrant (principal) | CPT/HCPCS: 76642; 77061; 77065 ==

== ENCOUNTER 2024-12-29 10:36 | Outpatient (AMB) | payer BC, SELFPAY ==
--- NOTE | 2024-12-29 10:38 | MHC.OFFVIS ---
Vital Signs 12/29/24 10:51 Height 5 ft 4 in Weight 149 lb BMI 25.6 BP 143/86 H Blood Pressure Location Lt brachial Position Sitting Pulse 83 Intake Visit Reasons: (L) Breast US BX 2O'clock mass Intake Note: Patient is seen in office for ultrasound biopsy CONSULT left breast for 2 o'clock mass. Pt c/o: does not feel any lumps or bumps, or any concerns regarding the breast, denies fm hx of breast cancer, has sister with ovarian cancer at the age of 18 yrs Bx sched: 12/30/24 @ 8am Cleaner And Polisher Required: No Waterproofer: Waterproofer Present Accompanied by: Self / Same As Patient Allergies No Known Allergies Allergy (Verified 12/29/24 10:46) Medication List - Last Reconciled 12/29/24 by Bandar Cortez MD atorvastatin 20 mg PO BEDTIME hydrochlorothiazide 25 mg PO DAILY levothyroxine 88 mcg PO DAILY HPI Comments Details: 44-year-old female patient presenting with a recent screening mammogram performed on 11/25/2024 with follow-up additional images and ultrasound performed on 12/17/2024 which reveal a 1.1 x 0.6 x 1.0 cm hypoechoic solid mass in the 2 o'clock position, 8 cm from the nipple. No internal vascularity is demonstrated with color Doppler evaluation. No enlarged lymph nodes were noted in the axilla. Findings were felt to be suspicious for malignancy and ultrasound-guided core biopsy was recommended (BI-RADS 4). She denies a previous history of breast problems or breast surgery. Her family history is negative for breast cancer. Her sister was diagnosed with ovarian cancer the age of 18. She underwent chemotherapy in [place] for this. She denies any palpable mass, skin change, nipple discharge or enlarged lymph nodes. She is 2 para 2 with a 23-year-old daughter and 16-year-old son. Menarche was at 12 years old. She is premenopausal. [facility] Medical History Obesity Hypertension Surgical History History of laparoscopic cholecystectomy (09/06/22) H/O section Family History Mother Hypertension Hypercholesterolemia Migraine Sister Ovarian cancer Social History Housing: House Alcohol intake: current Alcohol intake frequency: does not drink Patient Tobacco Use Status: Never used Tobacco e-Cigarette/Vaping Use: Never Used service: No Current occupational status: employed Cognitive needs: No Hearing needs: No Vision needs: Yes (reading glassses) Female Reproductive History Menstrual Age of Menarche: 12 Date of last menstrual period: 12/29/24 Total pregnancies: 3 Full term: 2 Ab spontaneous: 1 Review of Systems Const All systems reviewed & are unremarkable except as noted in HPI and below Physical Exam Vital Signs: Last Vital Signs Pulse 83 12/29/24 10:51 BP 143/86 H 12/29/24 10:51 BMI result Body Mass Index 25.6 Const General: cooperative and no acute distress Nutritional Appearance: well nourished Orientation/consciousness: patient oriented x3 Limitations: no limitations HEENT Head: Yes normocephalic and Yes atraumatic Ears: hearing grossly normal bilaterally Chest Other: Left breast: No skin change, no nipple retraction, no nipple discharge, no enlarged lymph nodes, palpable mass noted in the upper outer quadrant, 02:00, approximately 6-8 cm from the nipple, measuring approximately 1.5 cm in diameter, mobile within the breast tissue with mild tenderness to palpation. No overlying skin changes noted Right breast: No skin change, no nipple retraction, no nipple discharge, no palpable mass, no enlarged lymph nodes Chest/axillae images:  1. Palpable mass left breast upper outer quadrant Resp Effort & Inspection: normal respiratory effort, no audible wheezes, no cough and no respiratory distress Cardio Jugular venous distension: no JVD GI Inspection: Yes normal to inspection Skin Other: Warm, dry, no rash Neuro General: patient oriented x3 Extrem General: Yes no clubbing, cyanosis or edema Assessment & Plan Assessment & Plan (1) Abnormal mammogram of left breast: Code(s): R92.8 - Other abnormal and inconclusive findings on diagnostic imaging of breast Category: Medical Plan 44-year-old female patient presenting with a recent mammogram and ultrasound which revealed a new density in the upper outer quadrant left breast felt to be suspicious for malignancy. The patient denies any breast symptoms and denies a previous history of breast problems. Examination does confirm a palpable mass in this location measuring approximately 1.5 cm in diameter. There is tenderness to palpation. She is scheduled for an ultrasound-guided core biopsy tomorrow at the [facility]. I recommended she return in 1 week to review the results and discuss treatment options. She expressed understanding and agrees with the plan. Coding Level of Care Code New Pt Level 4 (91783) Diagnoses Abnormal mammogram of left breast R92.8
[2024-12-29 10:51] VITALS: BP 143/86; PULSE 83; BMI 25.6
--- OUTSIDE RECORDS SUMMARY | 2024-12-29 11:17 | XMS_ITS | Patient Health Record ---
Author Organization [facility] [address] Address [address] [place] [address] Care Team Providers Care Enhanced Environmental Operator Name Role Phone KLEVER BUTLER Unavailable [phone] Allergies No Known Allergies Reason For Referral [...] Status W/U Status Risk Notes Problem Hypothyroidism (34494184) Hypothyroidism, unspecified (E03.9) Active confirmed Problem Adult health examination (434816390) Encounter for general adult medical examination without abnormal findings (Z00.00) Active confirmed Problem Disease of blood AND/OR blood forming organ (44278389) Encounter for screening for diseases of the blood and blood-forming organs and certain disorders involving the immune mechanism (Z13.0) Active confirmed Problem Diabetes mellitus screening (903243282) Encounter for screening for diabetes mellitus (Z13.1) Active confirmed Problem Essential hypertension (31529430) Hypertension, unspecified type (I10) Active confirmed Problem Body mass index 25-29 - overweight (128534846) BMI 25.0-25.9,adult (Z68.25) Active confirmed Problem Vitamin B>12< deficiency anaemia (81059519) Anemia due to vitamin B12 deficiency, unspecified B12 deficiency type (D51.9) Active confirmed Problem BMI 25-29 - overweight (894279404) BMI 27.0-27.9,adult (Z68.27) Active confirmed Problem Screening for cardiovascular system disease (832390804) Screening for cardiovascular condition (Z13.6) Active confirmed Problem Obesity (443294284) Obesity due to excess calories without serious [...] Insured Coverage Start Date Coverage End Date [facility] [address] [place] [address] [phone] [id number] [id number] CAMRYN BARROW Self - patient is the insured Medications Administered Medication Instructions Date of Administration Dosage Notes MICC B12 INJECTION 01/16/2023 MICC B12 INJECTION 01/23/2023 MICC B12 INJECTION 03/15/2023 Semaglutide 01/16/2023 sema 0.25mg Semaglutide 01/23/2023 0.25 mg LLQ SQ Semaglutide 02/07/2023 lot# [id number] 0.25mg Semaglutide 02/13/2023 0.25 mg R tricep SQ Semaglutide 03/15/2023 0.5 mg LRQ SQ Semaglutide 03/22/2023 lot#[id number] 0.5mg Semaglutide 04/05/2023 Semaglutide 04/12/2023 1 Semaglutide 04/19/2023 1.0 mg R tricep SQ Semaglutide 04/26/2023 1 mL Semaglutide 05/03/2023 1.0 mg LLQ SQ Semaglutide 05/10/2023 1 mg lot#[id number] 1mg Semaglutide 05/24/2023 Semaglutide 07/12/2023 1 Medical (General) History Medical History History ICD Code hypertension Hypothyroidism overweight Surgical History Surgery Date(Month/Year) gallbladder 09/09/2022 Hospitalization History Reason Date(Month/Year) SAME SURGICAL
--- OUTSIDE RECORDS SUMMARY | 2024-12-29 11:17 | XMS_ITS | Continuity of Care Document ---
Author Organization [facility] [address] [place] [address] Phone [phone] Social History Type Date Description Comments Sex Female Sex Unknown Medical Devices Description No Information Available Encounters Description No Information Available Assessments Description No Information Available Plan of Treatment No Information Available Functional Status Description No Information Available Mental Status Description No Information Available Referrals Description No Information Available
--- OUTSIDE RECORDS SUMMARY | 2024-12-29 11:17 | XMS_ITS | Clinical Summary ---
Author Organization [facility] it Address [address] [place] [address] Care Team Providers Care Station Repairer Name Role Phone Dante Gary MD Primary Care Provider [phone] Social History Tobacco Use Types Packs/Day Years [...] age to complete this topic Care Teams Station Repairer Relationship Specialty Start Date End Date Dante Gary MD [address] [place] [address] Dr Nichole [place] PCP - General Internal Medicine 10/02/21
== END 2024-12-29 11:08 | disposition home or self-care (01) ==
LOC: HO.HGS 10:37
PROVIDERS: PCP Internal Medicine; Visit Provider Surgery
DX: R92.8 Other abnormal and inconclusive findings on diagnostic imaging of breast (principal)
CPT/HCPCS: 99204

== ENCOUNTER 2024-12-30 08:07 | Outpatient (REF) | payer BC, SELFPAY ==
--- NOTE | ~2024-12-30 | MM_ITS ---
PROCEDURE: ULTRASOUND-GUIDED LEFT BREAST BIOPSY CLINICAL INFORMATION: Solid irregular left breast mass at 2:00 here for ultrasound-guided core needle biopsy. COMPARISON: Priors on PACS. TECHNIQUE: The details of the procedure, as well as the risks, benefits, and alternatives to the procedure were explained to the patient in detail and all of her questions were answered, after which, written informed consent was obtained. PROCEDURE: Prior to the procedure, sonography revealed a solid irregular mass left breast 2:00. A time-out was performed, the lesion intended for biopsy was targeted and the skin of the left breast was then prepped and draped in the usual sterile fashion. Using sonographic guidance, sterile technique, and 1% lidocaine without epinephrine for local anesthesia, a total of 4 cores were obtained through the targeted area with a 14-gauge biopsy device. At the completion of tissue sampling, a single butterfly metallic clip was deposited at the biopsy site. An appropriate sample was obtained. The postprocedure 2-view direct digital mammogram reveals satisfactory positioning of the biopsy clip. The patient tolerated the procedure well and, after assuring adequate hemostasis, was discharged in good condition after reviewing postbiopsy breast care instructions. Final pathology results are pending. MM/MM tomosynthesis diagnostic LT IMPRESSION: 1. Uncomplicated sonographically-guided core biopsy of the left breast. The 2-view direct digital postprocedure mammogram reveals satisfactory positioning of the biopsy clip. 2. Final pathology results are pending. A separate report with final recommendations will be issued once these results are made available. Electronically signed by: Jamia August DO 12/30/2024 09:56 AM EDThee
--- OUTSIDE RECORDS SUMMARY | 2024-12-30 08:09 | XMS_ITS | Clinical Summary ---
Author Organization [facility] it Address [address] [place] [address] Care Team Providers Care Fruit I Farmworker Name Role Phone Dante Gary MD Primary Care Provider [phone] Social History Tobacco Use Types Packs/Day Years [...] age to complete this topic Care Teams Fruit I Farmworker Relationship Specialty Start Date End Date Dante Gary MD [address] [place] [address] Dr Nichole [place] PCP - General Internal Medicine 10/02/21
--- OUTSIDE RECORDS SUMMARY | 2024-12-30 08:10 | XMS_ITS | Continuity of Care Document ---
Author Organization [facility] [address] [facility] [address] [place] [address] Phone [phone] Social History Type Date Description Comments Sex Female Sex Unknown Medical Devices Description No Information Available Encounters Description No Information Available Assessments Description No Information Available Plan of Treatment No Information Available Functional Status Description No Information Available Mental Status Description No Information Available Referrals Description No Information Available
--- OUTSIDE RECORDS SUMMARY | 2024-12-30 08:10 | XMS_ITS | Patient Health Record ---
Author Organization [facility] [address] Address [address] [place] [address] Care Team Providers Care Chemical Processor Name Role Phone KLEVER BUTLER Unavailable [phone] Allergies No Known Allergies Reason For Referral [...] Status W/U Status Risk Notes Problem Hypothyroidism (98256827) Hypothyroidism, unspecified (E03.9) Active confirmed Problem Adult health examination (523071128) Encounter for general adult medical examination without abnormal findings (Z00.00) Active confirmed Problem Disease of blood AND/OR blood forming organ (43943176) Encounter for screening for diseases of the blood and blood-forming organs and certain disorders involving the immune mechanism (Z13.0) Active confirmed Problem Diabetes mellitus screening (591278955) Encounter for screening for diabetes mellitus (Z13.1) Active confirmed Problem Essential hypertension (75703968) Hypertension, unspecified type (I10) Active confirmed Problem Body mass index 25-29 - overweight (173972318) BMI 25.0-25.9,adult (Z68.25) Active confirmed Problem Vitamin B>12< deficiency anaemia (45635412) Anemia due to vitamin B12 deficiency, unspecified B12 deficiency type (D51.9) Active confirmed Problem BMI 25-29 - overweight (960518792) BMI 27.0-27.9,adult (Z68.27) Active confirmed Problem Screening for cardiovascular system disease (095583829) Screening for cardiovascular condition (Z13.6) Active confirmed Problem Obesity (942841093) Obesity due to excess calories without serious [...] Insured Coverage Start Date Coverage End Date [facility] [address] [place] [address] [phone] [id number] CAMRYN BARROW Self - patient is the insured Medications Administered Medication Instructions Date of Administration Dosage Notes MICC B12 INJECTION 01/16/2023 MICC B12 INJECTION 01/23/2023 MICC B12 INJECTION 03/15/2023 Semaglutide 01/16/2023 sema 0.25mg Semaglutide 01/23/2023 0.25 mg LLQ SQ Semaglutide 02/07/2023 lot# [id number] 0.25mg Semaglutide 02/13/2023 0.25 mg R tricep SQ Semaglutide 03/15/2023 0.5 mg LRQ SQ Semaglutide 03/22/2023 lot#[id number] 0.5mg Semaglutide 04/05/2023 Semaglutide 04/12/2023 1 Semaglutide 04/19/2023 1.0 mg R tricep SQ Semaglutide 04/26/2023 1 mL Semaglutide 05/03/2023 1.0 mg LLQ SQ Semaglutide 05/10/2023 1 mg lot#[id number] 1mg Semaglutide 05/24/2023 Semaglutide 07/12/2023 1 Medical (General) History Medical History History ICD Code hypertension Hypothyroidism overweight Surgical History Surgery Date(Month/Year) gallbladder 09/09/2022 Hospitalization History Reason Date(Month/Year) SAME SURGICAL
[2024-12-30] MEDS: Lidocaine HCl 1 % 20 ML VIAL 9 ML SUBCUT (09:00)
== END 2024-12-30 08:08 | disposition home or self-care (01) ==
LOC: HO.MAMMO 08:07
PROVIDERS: PCP Internal Medicine; Visit Provider Internal Medicine
DX: R92.8 Other abnormal and inconclusive findings on diagnostic imaging of breast (principal)
CPT/HCPCS: 19083; 77061; 77065; 88305; 88341; 88342; 88360; A4648; J2003

== ENCOUNTER → 2024-12-30 08:09 | Outpatient (BNV) | payer BC, SELFPAY | PROVIDERS: PCP Internal Medicine; Visit Provider Internal Medicine | DX: N63.21 Unspecified lump in the left breast, upper outer quadrant (principal) | CPT/HCPCS: 19083; 77065 ==

== ENCOUNTER 2025-01-14 08:52 | Outpatient (AMB) | payer BC, SELFPAY ==
--- NOTE | 2025-01-14 08:54 | MHC.OFFVIS ---
Vital Signs 01/14/25 08:58 Height 5 ft 4 in Weight 147 lb BMI 25.2 BP 130/89 Blood Pressure Location Rt brachial Position Sitting Pulse 94 Intake Visit Reasons: Left breast BX results, 2 o'clock mass Intake Note: Patient here s/p left breast biopsy. Patient c/o: on and off minor pain at bx site. Elementary Education Tutor Required: No Accompanied by: Self / Same As Patient Allergies No Known Allergies Allergy (Verified 01/14/25 08:58) Medication List - Last Reconciled 01/14/25 by Bandar Cortez MD atorvastatin 20 mg PO BEDTIME hydrochlorothiazide 25 mg PO DAILY levothyroxine 88 mcg PO DAILY HPI Comments Details: 44-year-old female patient presenting with a recent screening mammogram performed on 11/25/2024 with follow-up additional images and ultrasound performed on 12/17/2024 which reveal a 1.1 x 0.6 x 1.0 cm hypoechoic solid mass in the 2 o'clock position, 8 cm from the nipple. No internal vascularity is demonstrated with color Doppler evaluation. No enlarged lymph nodes were noted in the axilla. Findings were felt to be suspicious for malignancy and ultrasound-guided core biopsy was recommended (BI-RADS 4). She denies a previous history of breast problems or breast surgery. Her family history is negative for breast cancer. Her sister was diagnosed with ovarian cancer the age of 18. She underwent chemotherapy in [place] for this. She denies any palpable mass, skin change, nipple discharge or enlarged lymph nodes. She is 2 para 2 with a 23-year-old daughter and 16-year-old son. Menarche was at 12 years old. She is premenopausal. She returns today following ultrasound-guided needle core which revealed a cellular spindle cell proliferation with smooth muscle differentiation. Service of excision of the entire lesions recommended for more definitive characterization. [facility] Medical History Obesity Hypertension Surgical History History of laparoscopic cholecystectomy (09/06/22) H/O section Family History Mother Hypertension Hypercholesterolemia Migraine Sister Ovarian cancer Social History Housing: House Alcohol intake: current Alcohol intake frequency: does not drink Patient Tobacco Use Status: Never used Tobacco e-Cigarette/Vaping Use: Never Used service: No Current occupational status: employed Cognitive needs: No Hearing needs: No Vision needs: Yes (reading glassses) Female Reproductive History Menstrual Age of Menarche: 12 Review of Systems Const All systems reviewed & are unremarkable except as noted in HPI and below Physical Exam Const General: cooperative and no acute distress Nutritional Appearance: well nourished Orientation/consciousness: patient oriented x3 Limitations: no limitations HEENT Head: Yes normocephalic and Yes atraumatic Ears: hearing grossly normal bilaterally Chest Other: Left breast: No skin change, no nipple retraction, no nipple discharge, no enlarged lymph nodes, palpable mass noted in the upper outer quadrant, 02:00, approximately 6-8 cm from the nipple, measuring approximately 1.5 cm in diameter, mobile within the breast tissue with mild tenderness to palpation. No overlying skin changes noted Right breast: No skin change, no nipple retraction, no nipple discharge, no palpable mass, no enlarged lymph nodes Resp Effort & Inspection: normal respiratory effort, no audible wheezes, no cough and no respiratory distress Cardio Jugular venous distension: no JVD GI Inspection: Yes normal to inspection Skin Other: Warm, dry, no rash Neuro General: patient oriented x3 Extrem General: Yes no clubbing, cyanosis or edema Assessment & Plan Assessment & Plan (1) Abnormal mammogram of left breast: Code(s): R92.8 - Other abnormal and inconclusive findings on diagnostic imaging of breast Category: Medical Plan 44-year-old female patient presenting with a recent mammogram and ultrasound which revealed a new density in the upper outer quadrant left breast felt to be suspicious for malignancy. The patient denies any breast symptoms and denies a previous history of breast problems. Examination does confirm a palpable mass in this location measuring approximately 1.5 cm in diameter. There is tenderness to palpation. Ultrasound-guided core biopsy revealed a cellular spindle cell proliferation with smooth muscle differentiation. I reviewed the pathology results in detail with the patient and recommended a wider excision to assure complete removal. After discussion of the procedure, risks, and alternatives, she consents to a left breast lumpectomy with localizer. This will be scheduled at her earliest convenience. Coding Level of Care Code Est Pt Level 4 (71287) Diagnoses Abnormal mammogram of left breast R92.8
[2025-01-14 08:58] VITALS: BP 130/89; PULSE 94; BMI 25.2
--- OUTSIDE RECORDS SUMMARY | 2025-01-14 09:04 | XMS_ITS | Continuity of Care Document ---
Author Organization [facility] [address] [place] [address] Phone [phone] Social History Type Date Description Comments Sex Female Sex Unknown Medical Devices Description No Information Available Encounters Description No Information Available Assessments Description No Information Available Plan of Treatment No Information Available Functional Status Description No Information Available Mental Status Description No Information Available Referrals Description No Information Available
--- OUTSIDE RECORDS SUMMARY | 2025-01-14 09:04 | XMS_ITS | Patient Health Record ---
Author Organization [facility] Address [address] [place] [address] Care Team Providers Care Transistor Tester Name Role Phone KLEVER BUTLER Unavailable [phone] Allergies No Known Allergies Reason For Referral [...] Status W/U Status Risk Notes Problem Hypothyroidism (17272992) Hypothyroidism, unspecified (E03.9) Active confirmed Problem Adult health examination (494364183) Encounter for general adult medical examination without abnormal findings (Z00.00) Active confirmed Problem Disease of blood AND/OR blood forming organ (42696864) Encounter for screening for diseases of the blood and blood-forming organs and certain disorders involving the immune mechanism (Z13.0) Active confirmed Problem Diabetes mellitus screening (276217031) Encounter for screening for diabetes mellitus (Z13.1) Active confirmed Problem Essential hypertension (91296283) Hypertension, unspecified type (I10) Active confirmed Problem Body mass index 25-29 - overweight (798272723) BMI 25.0-25.9,adult (Z68.25) Active confirmed Problem Vitamin B>12< deficiency anaemia (06853809) Anemia due to vitamin B12 deficiency, unspecified B12 deficiency type (D51.9) Active confirmed Problem BMI 25-29 - overweight (405682042) BMI 27.0-27.9,adult (Z68.27) Active confirmed Problem Screening for cardiovascular system disease (511214561) Screening for cardiovascular condition (Z13.6) Active confirmed Problem Obesity (194970162) Obesity due to excess calories without serious [...] Insured Coverage Start Date Coverage End Date [facility] [address] [place] [address] [phone] [id number] CAMRYN BARROW Self - patient is the insured Medications Administered Medication Instructions Date of Administration Dosage Notes MICC B12 INJECTION 01/16/2023 MICC B12 INJECTION 01/23/2023 MICC B12 INJECTION 03/15/2023 Semaglutide 01/16/2023 sema 0.25mg Semaglutide 01/23/2023 0.25 mg LLQ SQ Semaglutide 02/07/2023 lot# [id number] 0.25mg Semaglutide 02/13/2023 0.25 mg R tricep SQ Semaglutide 03/15/2023 0.5 mg LRQ SQ Semaglutide 03/22/2023 lot#[id number] 0.5mg Semaglutide 04/05/2023 Semaglutide 04/12/2023 1 Semaglutide 04/19/2023 1.0 mg R tricep SQ Semaglutide 04/26/2023 1 mL Semaglutide 05/03/2023 1.0 mg LLQ SQ Semaglutide 05/10/2023 1 mg lot#[id number] 1mg Semaglutide 05/24/2023 Semaglutide 07/12/2023 1 Medical (General) History Medical History History ICD Code hypertension Hypothyroidism overweight Surgical History Surgery Date(Month/Year) gallbladder 09/09/2022 Hospitalization History Reason Date(Month/Year) SAME SURGICAL
--- OUTSIDE RECORDS SUMMARY | 2025-01-14 09:04 | XMS_ITS | Clinical Summary ---
Author Organization [facility] it Address [address] [place] [address] Care Team Providers Care Sports Internship Name Role Phone Dante Gary MD Primary Care Provider [phone] Social History Tobacco Use Types Packs/Day Years [...] age to complete this topic Care Teams Sports Internship Relationship Specialty Start Date End Date Dante Gary MD [address] [place] [address] Dr Nichole [place] PCP - General Internal Medicine 10/02/21
== END 2025-01-14 09:19 | disposition home or self-care (01) ==
LOC: HO.HGS 08:52
PROVIDERS: PCP Internal Medicine; Visit Provider Surgery
DX: R92.8 Other abnormal and inconclusive findings on diagnostic imaging of breast (principal)
CPT/HCPCS: 99214

== ENCOUNTER 2025-01-25 09:53 | Outpatient (REF) | payer BC, SELFPAY ==
--- OUTSIDE RECORDS SUMMARY | 2023-08-06 10:30 | XMS_ITS ---
Author Organization [facility] [address] Address [address] [place] [address] Care Team Providers Care Compensation Supervisor Name Role Phone KLEVER BUTLER Unavailable [phone] Katie Ramirez Unavailable [phone] REASON FOR VISIT with lab Encounters Encounter Location Date Provider Diagnosis [facility] [address] [address] 08/06/2023 Katie Ramirez Plan Of Treatment No Information Progress Notes * MARÍA BARROWPDOB:[birth year] (44 yo F)Acc No.[id number]:08/06/2023 Patient: Kelly SALOMONCAMRYN AVILEZ Provider: Inocente Ramirez PA-C :1980 A ge:43 Y S ex:Female Date:08/06/2023 Address:[address] [place], [place] [id number] Subjective: * Chief Complaints: * 1 . With lab. * Medical History: Objective: * Vitals: Assessment: Plan: * Treatment: * Images: Billing Information: * Visit Code: * Procedure Codes: * Electronic signature of Katie Ramirez PA-C on 01/25/2025 at 11:10 AM EDT Sign off status: Pending * Provider: Inocente Ramirez PA-C Date: 08/06/2023 Generated for Tereso ng/Faramirezg/eTransmitting on: 0 01/25/2025 11:10 AM EDT
--- NOTE | ~2025-01-25 | US_ITS ---
EXAMINATION/PROCEDURE: 1. US GUIDED BREAST NEEDLE LOCALIZATION LEFT 2. MG BREAST DIAGNOSTIC UNILATERAL LEFT CLINICAL INFORMATION: Patient status post ultrasound-guided needle core biopsy on December 30, 2024 for left breast mass located at 2 o'clock position 8 cm from the nipple with a butterfly shape clip placement. Pathology showed cellular spindle cell. Excisional biopsy was recommended. COMPARISON: Left mammogram/ultrasound workup on December 17, 2024. Ultrasound-guided needle core biopsy of the left breast on December 30, 2024. TECHNIQUE NEEDLE LOC: Proper informed consent is obtained from the patient after discussion of the procedure, potential risks and complications, and alternatives including declining the procedure today. Patient was given an opportunity for questions. The patient appeared to understand. The patient consented to the procedure and signed the consent form. GUIDANCE: Ultrasound. APPROACH: Lateral. TARGET: Left breast mass at 2 o'clock position 7 cm from the nipple. ANESTHESIA: carbonated lidocaine 1%: 5 cc LOCALIZATION SYSTEM: -[employer] LOCallizer Wire-Free Guidance System with 12g needle applicator. -Length: 7 cm. -RADIOFREQUENCY TAG: ID # [id number] RF Tag ID confirmed with LOCalizer Guidance System prior to placement. The skin is prepped and local anesthesia administered. The needle is positioned and RFID tag deployed. Final images demonstrate the LOCalizer RF tag to reside within the biopsied mass and tissue marker. The patient tolerated the procedure well and had no immediate complications. Dressing placed and home instructions reviewed. Post procedure mammogram (full field CC and ML 90 degrees) obtained at another room shows satisfactory position of the LOCalizer tag adjacent to the butterfly shaped biopsy clip. US/US Breast RF Tag Device Left IMPRESSION: -Status post left breast RFID localization (#[id number]) of left breast mass at 2 o'clock position 7 cm from the nipple. Electronically signed by: Julia Mercedes MD 01/25/2025 02:19 PM EDT
--- NOTE | ~2025-01-25 | MM_ITS ---
EXAMINATION/PROCEDURE: 1. US GUIDED BREAST NEEDLE LOCALIZATION LEFT 2. MG BREAST DIAGNOSTIC UNILATERAL LEFT CLINICAL INFORMATION: Patient status post ultrasound-guided needle core biopsy on December 30, 2024 for left breast mass located at 2 o'clock position 8 cm from the nipple with a butterfly shape clip placement. Pathology showed cellular spindle cell. Excisional biopsy was recommended. COMPARISON: Left mammogram/ultrasound workup on December 17, 2024. Ultrasound-guided needle core biopsy of the left breast on December 30, 2024. TECHNIQUE NEEDLE LOC: Proper informed consent is obtained from the patient after discussion of the procedure, potential risks and complications, and alternatives including declining the procedure today. Patient was given an opportunity for questions. The patient appeared to understand. The patient consented to the procedure and signed the consent form. GUIDANCE: Ultrasound. APPROACH: Lateral. TARGET: Left breast mass at 2 o'clock position 7 cm from the nipple. ANESTHESIA: carbonated lidocaine 1%: 5 cc LOCALIZATION SYSTEM: -[employer] LOCallizer Wire-Free Guidance System with 12g needle applicator. -Length: 7 cm. -RADIOFREQUENCY TAG: ID # [id number] RF Tag ID confirmed with LOCalizer Guidance System prior to placement. The skin is prepped and local anesthesia administered. The needle is positioned and RFID tag deployed. Final images demonstrate the LOCalizer RF tag to reside within the biopsied mass and tissue marker. The patient tolerated the procedure well and had no immediate complications. Dressing placed and home instructions reviewed. Post procedure mammogram (full field CC and ML 90 degrees) obtained at another room shows satisfactory position of the LOCalizer tag adjacent to the butterfly shaped biopsy clip. MM/MM diagnostic mammo unilat LT IMPRESSION: -Status post left breast RFID localization (#[id number]) of left breast mass at 2 o'clock position 7 cm from the nipple. Electronically signed by: Julia Mercedes MD 01/25/2025 02:19 PM EDT
--- OUTSIDE RECORDS SUMMARY | 2025-01-25 11:10 | XMS_ITS | Clinical Summary ---
Author Organization [facility] Address [address] [place] [address] Care Team Providers Care Laborer Electroplating Name Role Phone Dante Gary MD Primary Care Provider [phone] Social History Tobacco Use Types Packs/Day Years [...] Cervical Cancer Screening: P ap Smear 02/27/2000 Depression Screening 05/26/2024 COVID-19 Vaccine (2023-2 5 season) 2025 Influenza Vaccine (#1) 2025 HIB Vaccines Aged [...] age to complete this topic Care Teams Laborer Electroplating Relationship Specialty Start Date End Date Dante Gary MD [address] [place] [address] Dr Nichole [place] PCP - General Internal Medicine 10/02/21
--- OUTSIDE RECORDS SUMMARY | 2025-01-25 11:11 | XMS_ITS ---
Continuity of Care Document (CCD) Created on: January 25, 2025 Manolo Alonso External Reference #: [id number] : [id number] Sex: Female Author Organization [facility] [address] [facility] [address] [place] [address] Phone [phone] Social History Type Date Description Comments Sex Female Sex Unknown Medical Devices Description No Information Available Encounters Description No Information Available Assessments Description No Information Available Plan of Treatment No Information Available Functional Status Description No Information Available Mental Status Description No Information Available Referrals Description No Information Available
--- OUTSIDE RECORDS SUMMARY | 2025-01-25 11:11 | XMS_ITS | Patient Health Record ---
Author Organization [facility] [address] Address [address] [place] [address] Care Team Providers Care Bottled Beverage Inspector Name Role Phone KLEVER BUTLER Unavailable [phone] Allergies No Known Allergies Reason For Referral [...] Status W/U Status Risk Notes Problem Hypothyroidism (87059780) Hypothyroidism, unspecified (E03.9) Active confirmed Problem Adult health examination (522608766) Encounter for general adult medical examination without abnormal findings (Z00.00) Active confirmed Problem Disease of blood AND/OR blood forming organ (86665379) Encounter for screening for diseases of the blood and blood-forming organs and certain disorders involving the immune mechanism (Z13.0) Active confirmed Problem Diabetes mellitus screening (560241519) Encounter for screening for diabetes mellitus (Z13.1) Active confirmed Problem Essential hypertension (25965851) Hypertension, unspecified type (I10) Active confirmed Problem Body mass index 25-29 - overweight (093905289) BMI 25.0-25.9,adult (Z68.25) Active confirmed Problem Vitamin B>12< deficiency anaemia (55425814) Anemia due to vitamin B12 deficiency, unspecified B12 deficiency type (D51.9) Active confirmed Problem BMI 25-29 - overweight (864212948) BMI 27.0-27.9,adult (Z68.27) Active confirmed Problem Screening for cardiovascular system disease (160972225) Screening for cardiovascular condition (Z13.6) Active confirmed Problem Obesity (358533273) Obesity due to excess calories without serious [...] Insured Coverage Start Date Coverage End Date [employer] [address] [place] [address] [phone] [id number] CAMRYN BARROW Self - patient is the insured Medications Administered Medication Instructions Date of Administration Dosage Notes MICC B12 INJECTION 01/16/2023 MICC B12 INJECTION 01/23/2023 MICC B12 INJECTION 03/15/2023 Semaglutide 01/16/2023 sema 0.25mg Semaglutide 01/23/2023 0.25 mg LLQ SQ Semaglutide 02/07/2023 lot# [id number] 0.25mg Semaglutide 02/13/2023 0.25 mg R tricep SQ Semaglutide 03/15/2023 0.5 mg LRQ SQ Semaglutide 03/22/2023 lot#[id number] 0.5mg Semaglutide 04/05/2023 Semaglutide 04/12/2023 1 Semaglutide 04/19/2023 1.0 mg R tricep SQ Semaglutide 04/26/2023 1 mL Semaglutide 05/03/2023 1.0 mg LLQ SQ Semaglutide 05/10/2023 1 mg lot#[id number] 1mg Semaglutide 05/24/2023 Semaglutide 07/12/2023 1 Medical (General) History Medical History History ICD Code hypertension Hypothyroidism overweight Surgical History Surgery Date(Month/Year) gallbladder 09/09/2022 Hospitalization History Reason Date(Month/Year) SAME SURGICAL
[2025-01-25] MEDS: Lidocaine HCl 1 % 20 ML VIAL 5 ML SUBCUT (11:32)
== END 2025-01-25 09:54 | disposition home or self-care (01) ==
LOC: HO.MAMMO 09:53
PROVIDERS: PCP Internal Medicine; Visit Provider Surgery
DX: N63.21 Unspecified lump in the left breast, upper outer quadrant (principal)
CPT/HCPCS: 19285; 77062; 77065; C1819; J2003

== ENCOUNTER → 2025-01-25 10:00 | Outpatient (BNV) | payer BC, SELFPAY | PROVIDERS: PCP Internal Medicine; Visit Provider Radiology Body Imaging | DX: N63.21 Unspecified lump in the left breast, upper outer quadrant (principal) | CPT/HCPCS: 19285; 77065 ==

== ENCOUNTER 2025-02-03 10:29 | Day surgery (SDC) | payer BC, SELFPAY ==
--- OUTSIDE RECORDS SUMMARY | 2023-08-06 10:30 | XMS_ITS ---
Author Organization [facility] [address] Address [address] [place] [address] Care Team Providers Care Full Decator Operator Name Role Phone KLEVER BUTLER Unavailable [phone] Katie Ramirez Unavailable [phone] REASON FOR VISIT with lab Encounters Encounter Location Date Provider Diagnosis [facility] [address] [address] 08/06/2023 Katie Ramirez Plan Of Treatment No Information Progress Notes * MARÍA BARROWPDOB:[birth year] (44 yo F)Acc No.[id number]:08/06/2023 Patient: Kelly GARZONCAMRYN ADDISON Provider: Inocente Ramirez PA-C :1980 A ge:43 Y S ex:Female Date:08/06/2023 Address:[address] [place], [place] [id number] Subjective: * Chief Complaints: * 1 . With lab. * Medical History: Objective: * Vitals: Assessment: Plan: * Treatment: * Images: Billing Information: * Visit Code: * Procedure Codes: * Electronic signature of Katie Ramirez PA-C on 01/17/2025 at 02:10 PM EDT Sign off status: Pending * Provider: Inocente Ramirez PA-C Date: 08/06/2023 Generated for Tereso ng/Faramirezg/eTransmitting on: 0 01/17/2025 02:10 PM EDT
--- OUTSIDE RECORDS SUMMARY | 2025-01-17 14:11 | XMS_ITS | Patient Health Record ---
Author Organization [facility] [address] Address [address] [place] [address] Care Team Providers Care Buffing Wheel Presser Name Role Phone KLEVER BUTLER Unavailable [phone] Allergies No Known Allergies Reason For Referral [...] Status W/U Status Risk Notes Problem Hypothyroidism (65898821) Hypothyroidism, unspecified (E03.9) Active confirmed Problem Adult health examination (537797980) Encounter for general adult medical examination without abnormal findings (Z00.00) Active confirmed Problem Disease of blood AND/OR blood forming organ (94097289) Encounter for screening for diseases of the blood and blood-forming organs and certain disorders involving the immune mechanism (Z13.0) Active confirmed Problem Diabetes mellitus screening (401374465) Encounter for screening for diabetes mellitus (Z13.1) Active confirmed Problem Essential hypertension (99884108) Hypertension, unspecified type (I10) Active confirmed Problem Body mass index 25-29 - overweight (374691998) BMI 25.0-25.9,adult (Z68.25) Active confirmed Problem Vitamin B>12< deficiency anaemia (68450151) Anemia due to vitamin B12 deficiency, unspecified B12 deficiency type (D51.9) Active confirmed Problem BMI 25-29 - overweight (024394376) BMI 27.0-27.9,adult (Z68.27) Active confirmed Problem Screening for cardiovascular system disease (913199179) Screening for cardiovascular condition (Z13.6) Active confirmed Problem Obesity (797122890) Obesity due to excess calories without serious [...] Insured Coverage Start Date Coverage End Date [facility] [address] [place] [address] [phone] [id number] CAMRYN BARROW Self - patient is the insured Medications Administered Medication Instructions Date of Administration Dosage Notes MICC B12 INJECTION 01/16/2023 MICC B12 INJECTION 01/23/2023 MICC B12 INJECTION 03/15/2023 Semaglutide 01/16/2023 sema 0.25mg Semaglutide 01/23/2023 0.25 mg LLQ SQ Semaglutide 02/07/2023 lot# [id number] 0.25mg Semaglutide 02/13/2023 0.25 mg R tricep SQ Semaglutide 03/15/2023 0.5 mg LRQ SQ Semaglutide 03/22/2023 lot#[id number] 0.5mg Semaglutide 04/05/2023 Semaglutide 04/12/2023 1 Semaglutide 04/19/2023 1.0 mg R tricep SQ Semaglutide 04/26/2023 1 mL Semaglutide 05/03/2023 1.0 mg LLQ SQ Semaglutide 05/10/2023 1 mg lot#[id number] 1mg Semaglutide 05/24/2023 Semaglutide 07/12/2023 1 Medical (General) History Medical History History ICD Code hypertension Hypothyroidism overweight Surgical History Surgery Date(Month/Year) gallbladder 09/09/2022 Hospitalization History Reason Date(Month/Year) SAME SURGICAL
--- OUTSIDE RECORDS SUMMARY | 2025-01-17 14:11 | XMS_ITS | Clinical Summary ---
Author Organization [facility] it Address [address] [place] [address] Care Team Providers Care Fast Food Services Manager Name Role Phone Dante Gary MD Primary Care Provider [phone] Social History Tobacco Use Types Packs/Day Years [...] age to complete this topic Care Teams Fast Food Services Manager Relationship Specialty Start Date End Date Dante Gary MD [address] [place] [address] Dr Nichole [place] PCP - General Internal Medicine 10/02/21
--- OUTSIDE RECORDS SUMMARY | 2025-01-17 14:11 | XMS_ITS | Continuity of Care Document ---
Author Organization [facility] [address] [facility] [address] [place] [address] Phone [phone] Social History Type Date Description Comments Sex Female Sex Unknown Medical Devices Description No Information Available Encounters Description No Information Available Assessments Description No Information Available Plan of Treatment No Information Available Functional Status Description No Information Available Mental Status Description No Information Available Referrals Description No Information Available
[2025-02-01 07:43] VITALS: BMI 25.2
--- NOTE | 2025-02-01 12:52 | HO.ANESPROP2 ---
Documented by User: Soni Snow NP 02/01/25 12:52 HPI - Anesthesia Eval Consult details Narrative: 44 yr old female for Breast Lumpectomy w/LOCalizer PMFSH Active Problems Active Problems: All Active Problems (Updated 09/12/22 @ 10:43 by SHARIF Dominguez) Spindle cell carcinoma (Acute) Abnormal mammogram of left breast (Acute) Obesity (Acute) Hypertension (Acute) Pelvic pain (Acute) Abdominal bloating (Acute) Family history of malignant neoplasm of ovary in first degree relative (Acute) Well woman exam with routine gynecological exam (Acute) Cervical cancer screening (Acute) Biliary colic (Acute) Past Medical History Medical History Obesity Hypertension Family History Family History Mother Hypertension Hypercholesterolemia Migraine Sister Ovarian cancer Family history of problems with anesthesia: No Surgical History Surgical History History of laparoscopic cholecystectomy (09/06/22) H/O section History of Problems with Anesthesia: No Social History Social History Housing: House Alcohol intake: current Alcohol intake frequency: holidays/special occasions only Patient Tobacco Use Status: Never used Tobacco e-Cigarette/Vaping Use: Never Used Have you been hit, kicked, punched, or otherwise hurt by someone within the past year? If so, by whom?: No Are you DNR?: No Advance Directives: No Advance Directives Information Provided: Yes Patient : No FDLMP: last mth service: No Current occupational status: employed Cognitive needs: No Hearing needs: No Vision needs: Yes (reading glassses) Meds Allergies Allergy/AdvReac Type Severity Reaction Status Date / Time No Known Allergies Allergy Verified 01/14/25 08:58 Exam Height,Weight and Vital Signs: Height 5 ft 4 in Weight 66.678 kg Assessment and Plan Final Anesthetic Review Family History of Problems with Anesthesia: No History of Problems with Anesthesia: No Documented by User: Joan Palomo MD 02/03/25 11:00 PMFSH Past Medical History Medical History Obesity Hypertension Family History Family History Mother Hypertension Hypercholesterolemia Migraine Sister Ovarian cancer Surgical History Surgical History History of laparoscopic cholecystectomy (09/06/22) H/O section Social History Social History Housing: House Alcohol intake: current Alcohol intake frequency: holidays/special occasions only Patient Tobacco Use Status: Never used Tobacco e-Cigarette/Vaping Use: Never Used Have you been hit, kicked, punched, or otherwise hurt by someone within the past year? If so, by whom?: No Are you DNR?: No Advance Directives: No Advance Directives Information Provided: Yes Patient : No FDLMP: last mth service: No Current occupational status: employed Cognitive needs: No Hearing needs: No Vision needs: Yes (reading glassses) Meds Allergies Allergy/AdvReac Type Severity Reaction Status Date / Time No Known Allergies Allergy Verified 01/14/25 08:58 Exam Airway Mallampati Class: II TM Dist: >3cm Neck ROM: Full Heart: rrr Lungs: cta Assessment and Plan Assessment Anesthesia Assessment: Anesthesia Plan Discussed and Chart Reviewed Final Anesthetic Review NPO: Yes ASA Class: II Final Preanesthetic Review: No Changes in Pt Med Stat, Meds/Allgs Chart Reviewed, Consent Obtained/Reviewed and Anes Risks/Benef Reviewed Patient Risk: Low Procedure Risk: Low Anesthetic Plan Anesthetic Plan: GA and Agree w/ Assess. and Plan Disposition: Standard PACU
[2025-02-03] VITALS (7 sets, daily range): BP systolic 113–124; BP diastolic 70–83; PULSE 69–83; RESP 14–18; TEMP 36.2–36.4; O2SAT 98–100; BMI 24.7
--- NOTE | ~2025-02-03 | MM_ITS ---
Single left breast specimen radiograph demonstrates the tag and the marker clip within the specimen. Electronically signed by: Jamia August DO 02/03/2025 01:19 PM EDT
[2025-02-03 10:53] LABS: UPreg QC Valid YES
[2025-02-03] MEDS: Lactated Ringers 1,000 ML 100 ML IVCONT (11:02)
--- NOTE | 2025-02-03 11:54 | MHC.SHP ---
Pre-Procedural Eval Section A - 24 Hr Update-Section A only Date of Service: 02/03/25 The patient is an INPATIENT: No Changes since office visit: Yes Patient answered all questions; No Cold of Flu in the past 2 weeks, No New Medical Problems and No Changes in Medication The patient has been examined within 24 hours of the surgical procedure. The History & Physical has been completed within 30 days and I have reviewed it.: Yes Section B - Complete if H&P > 30 days Chief Complaint: Other abnormal and inconclusive findings Allergies: Allergies Allergy/AdvReac Type Severity Reaction Status Date / Time No Known Allergies Allergy Verified 01/14/25 08:58 Plan Diagnosis/Plan: Unchanged I have reviewed the history and physical and performed a pertinent physical examination on my patient. No changes have occurred unless specified. Time Spent With Patient Time: Total time managing care of this patient today ____ minutes.
--- NOTE | 2025-02-03 13:07 | W.PM.OPN ---
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 She presents today for wider excision to assure complete removal. Operative findings: Marking clip and localizer clip noted within the specimen. Gross pathology confirmed negative margins. Specimen: Left breast lumpectomy upper outer quadrant Estimated blood loss: 2 mL Complications: None Procedure details:. Patient was brought to the OR and placed in a supine position. After administering general anesthesia the patient's left breast was prepped with ChloraPrep and draped in a sterile fashion. A surgical time-out was called the consent confirmed. Patient received preoperative antibiotics and Venodyne boots were in place. Local anesthesia consisting of 0.5% Sensorcaine was placed over the localizing clip. Localizing clip was identified using the localizing device. A curvilinear incision was made in the upper outer quadrant and carried out through subcutaneous tissue. Superior and inferior skin flaps were then created. Core of tissue surrounding the localizing clip was then obtained. A palpable firm area was noted at approximately the location of the localizing clip. Dissection was began at the superior margin which was continued down to chest wall. This was followed by the lateral margin, medial margin, posterior margin and finally the inferior margin. The lesion was completely excised and marked with a long suture at the lateral margin, short suture at the superior margin, and looped suture at the posterior margin. Specimen x-ray was performed in the OR which confirmed the localizing clips within the specimen. The specimen was sent to pathology to confirm margins. Wounds were then irrigated with saline solution and suctioned dry. Wounds were checked for hemostasis. Hemostasis was assured using electrocautery. Deep breast tissue was reapproximated using interrupted 3-0 Polysorb sutures. Superficial breast tissue and dermis were then reapproximated using interrupted 3-0 Polysorb sutures. Skin was closed using a running subcuticular 4-0 Polysorb suture. Steri-Strips, 4 x 4 gauze and Tegaderm were then applied. The patient tolerated the procedure well. Sponge, instrument, and needle counts reported as correct. The patient was transferred to PACU in stable condition.
== END 2025-02-03 14:43 | disposition home or self-care (01) ==
PROVIDERS: Nurse Practitioner; PCP Internal Medicine; Visit Provider Surgery
PROC: (CPT 19301; principal; 2025-02-03 12:10)
DX: N63.21 Unspecified lump in the left breast, upper outer quadrant (principal); D24.2 Benign neoplasm of left breast; Z80.41 Family history of malignant neoplasm of ovary; I10 Essential (primary) hypertension; E66.9 Obesity, unspecified; Z68.25 Body mass index [BMI] 25.0-25.9, adult; Z79.899 Other long term (current) drug therapy
CPT/HCPCS: 19301; 81025; 88307; 88341; 88342; 88360; J0131; J0690; J1100; J1171; J2003; J2250; J2371; J2405; J2704; J2795; J3010

== ENCOUNTER → 2025-02-03 10:29 | Outpatient (BNV) | payer BC, SELFPAY | PROVIDERS: PCP Internal Medicine; Visit Provider Surgery | DX: C50.412 Malignant neoplasm of upper-outer quadrant of left female breast (principal) | CPT/HCPCS: 19301 ==

== ENCOUNTER 2025-02-14 11:24 | Outpatient (AMB) | payer BC, SELFPAY ==
--- NOTE | 2025-02-14 11:28 | A.OFFVIS_ITS ---
Vital Signs 02/14/25 11:30 Height 5 ft 4 in Weight 143 lb 4.807 oz BMI 24.6 Intake Visit Reasons: S/P Lt. brst lumpectomy w/localizer Intake Note: Patient is seen in office for post op assessment post left breast lumpectomy, Pt c/o: admit to sore, tender, redness and warm to the touch, denies fever, chills or discharge Accompanied by: Self / Same As Patient Allergies No Known Allergies Allergy (Verified 02/14/25 11:29) HPI Comments Details: 44-year-old female patient presenting with a recent screening mammogram performed on 11/25/2024 with follow-up additional images and ultrasound performed on 12/17/2024 which reveal a 1.1 x 0.6 x 1.0 cm hypoechoic solid mass in the 2 o'clock position, 8 cm from the nipple. No internal vascularity is demonstrated with color Doppler evaluation. No enlarged lymph nodes were noted in the axilla. Findings were felt to be suspicious for malignancy and ultrasound- guided core biopsy was recommended (BI-RADS 4). She denies a previous history of breast problems or breast surgery. Her family history is negative for breast cancer. Her sister was diagnosed with ovarian cancer the age of 18. She underwent chemotherapy in [place] for this. She denies any palpable mass, skin change, nipple discharge or enlarged lymph nodes. She is 2 para 2 with a 23-year-old daughter and 16-year-old son. Menarche was at 12 years old. She is premenopausal. She returns today following ultrasound-guided needle core which revealed a cellular spindle cell proliferation with smooth muscle differentiation. Service of excision of the entire lesions recommended for more definitive characterization. He returns today 1 week following left breast lumpectomy with localizer performed on 02/03/2025. Pathology results unfortunately are not available at the time of this visit. She reports some burning pain partially from the Steri-Strips but also extending up into the axilla and lower chest. [facility] Medical History Obesity Hypertension Surgical History History of lumpectomy of left breast (02/03/25) History of laparoscopic cholecystectomy (09/06/22) H/O section Family History Mother Hypertension Hypercholesterolemia Migraine Sister Ovarian cancer Social History Housing: House Alcohol intake: current Alcohol intake frequency: holidays/special occasions only Comment: counts correct Patient Tobacco Use Status: Never used Tobacco e-Cigarette/Vaping Use: Never Used service: No Current occupational status: employed Cognitive needs: No Hearing needs: No Vision needs: Yes (reading glassses) Female Reproductive History Menstrual Age of Menarche: 12 Physical Exam Vital Signs: BMI result Body Mass Index 24.6 Const General: cooperative and no acute distress Nutritional Appearance: well nourished Orientation/consciousness: patient oriented x3 Limitations: no limitations Chest Other: Incision in the left breast is clean and intact. There is slight erythema surrounding the incision suggestive of a possible allergic reaction to the adhesive. No definite infection is appreciated. No bleeding or discharge is noted. No enlarged lymph nodes. Resp Effort & Inspection: normal respiratory effort, no audible wheezes, no cough and no respiratory distress Skin Other: Warm, dry, no rash Neuro General: patient oriented x3 Extrem General: Yes no clubbing, cyanosis or edema Assessment & Plan Assessment & Plan (1) Abnormal mammogram of left breast: Code(s): R92.8 - Other abnormal and inconclusive findings on diagnostic imaging of breast Category: Medical Plan 44-year-old female patient with a spindle cell tumor of the left breast upper outer quadrant returning 1 week after lumpectomy. Pathology results are pending at this time. She does have some skin irritation or redness from the Steri- Strips but may benefit from a short course of antibiotics. She will return in 1 week for wound check. I will call her with the pathology results once completed. Medications: New cephalexin 500 mg PO Q8H 30 caps 0RF 10 days Coding Level of Care Code Global (43730) Diagnoses Abnormal mammogram of left breast R92.8
[2025-02-14 11:30] VITALS: BMI 24.6
--- OUTSIDE RECORDS SUMMARY | 2025-02-14 14:04 | XMS_ITS | Continuity of Care Document ---
Author Organization [facility] [address] [facility] [address] [place] [address] Phone [phone] Social History Type Date Description Comments Sex Female Sex Unknown Medical Devices Description No Information Available Encounters Description No Information Available Assessments Description No Information Available Plan of Treatment No Information Available Functional Status Description No Information Available Mental Status Description No Information Available Referrals Description No Information Available
--- OUTSIDE RECORDS SUMMARY | 2025-02-14 14:04 | XMS_ITS | Patient Health Record ---
Author Organization [facility] [address] Address [address] [place] [address] Care Team Providers Care Waste/Materials Exchange Specialist Name Role Phone KLEVER BUTLER Unavailable [phone] Allergies No Known Allergies Reason For Referral [...] Status W/U Status Risk Notes Problem Hypothyroidism (59094886) Hypothyroidism, unspecified (E03.9) Active confirmed Problem Adult health examination (321874052) Encounter for general adult medical examination without abnormal findings (Z00.00) Active confirmed Problem Disease of blood AND/OR blood forming organ (71217053) Encounter for screening for diseases of the blood and blood-forming organs and certain disorders involving the immune mechanism (Z13.0) Active confirmed Problem Diabetes mellitus screening (539870343) Encounter for screening for diabetes mellitus (Z13.1) Active confirmed Problem Essential hypertension (17193652) Hypertension, unspecified type (I10) Active confirmed Problem Body mass index 25-29 - overweight (886318671) BMI 25.0-25.9,adult (Z68.25) Active confirmed Problem Vitamin B>12< deficiency anaemia (91653769) Anemia due to vitamin B12 deficiency, unspecified B12 deficiency type (D51.9) Active confirmed Problem BMI 25-29 - overweight (260368345) BMI 27.0-27.9,adult (Z68.27) Active confirmed Problem Screening for cardiovascular system disease (094653857) Screening for cardiovascular condition (Z13.6) Active confirmed Problem Obesity (429816348) Obesity due to excess calories without serious [...] Coverage End Date [facility] [address] [place] [address] [phone] [id number] [id number] CAMRYN BARROW Self - patient is the insured Medications Administered Medication Instructions Date of Administration Dosage Notes MICC B12 INJECTION 01/16/2023 MICC B12 INJECTION 01/23/2023 MICC B12 INJECTION 03/15/2023 Semaglutide 01/16/2023 sema 0.25mg Semaglutide 01/23/2023 0.25 mg LLQ SQ Semaglutide 02/07/2023 lot# [id number] 0.25mg Semaglutide 02/13/2023 0.25 mg R tricep SQ Semaglutide 03/15/2023 0.5 mg LRQ SQ Semaglutide 03/22/2023 lot#[id number] 0.5mg Semaglutide 04/05/2023 Semaglutide 04/12/2023 1 Semaglutide 04/19/2023 1.0 mg R tricep SQ Semaglutide 04/26/2023 1 mL Semaglutide 05/03/2023 1.0 mg LLQ SQ Semaglutide 05/10/2023 1 mg lot#[id number] 1mg Semaglutide 05/24/2023 Semaglutide 07/12/2023 1 Medical (General) History Medical History History ICD Code hypertension Hypothyroidism overweight Surgical History Surgery Date(Month/Year) gallbladder 09/09/2022 Hospitalization History Reason Date(Month/Year) SAME SURGICAL
--- OUTSIDE RECORDS SUMMARY | 2025-02-14 14:04 | XMS_ITS | Clinical Summary ---
Author Organization [facility] Address [address] [place] [address] Care Team Providers Care Rolled Oats Mill Operator Name Role Phone Dante Gary MD Primary Care Provider [phone] Social History Tobacco Use Types Packs/Day Years [...] age to complete this topic Care Teams Rolled Oats Mill Operator Relationship Specialty Start Date End Date Dante Gary MD [address] [place] [address] Dr Nichole [place] PCP - General Internal Medicine 10/02/21
== END 2025-02-14 11:54 | disposition home or self-care (01) ==
LOC: HO.HGS 11:24
PROVIDERS: PCP Internal Medicine; Visit Provider Surgery
DX: R92.8 Other abnormal and inconclusive findings on diagnostic imaging of breast (principal)
CPT/HCPCS: 99024

== ENCOUNTER 2025-02-21 09:26 | Outpatient (AMB) | payer BC, SELFPAY ==
--- NOTE | 2025-02-21 09:34 | A.OFFVIS_ITS ---
Vital Signs 02/21/25 09:36 Height 5 ft 4 in Weight 143 lb 4.807 oz BMI 24.6 BP 120/72 Blood Pressure Location Lt brachial Position Sitting Intake Visit Reasons: 1wk S/P Lt. brst lumpectomy w/localizer Intake Note: Patient is seen in office for one week follow up visit, post left breast lumpectomy. Pt c/o: itchy, sore, numbness on the left arm, chest wall and inside the breast very tender Allergies No Known Allergies Allergy (Verified 02/14/25 11:29) HPI Comments Details: 44-year-old female patient presenting with a recent screening mammogram performed on 11/25/2024 with follow-up additional images and ultrasound performed on 12/17/2024 which reveal a 1.1 x 0.6 x 1.0 cm hypoechoic solid mass in the 2 o'clock position, 8 cm from the nipple. No internal vascularity is demonstrated with color Doppler evaluation. No enlarged lymph nodes were noted in the axilla. Findings were felt to be suspicious for malignancy and ultrasound- guided core biopsy was recommended (BI-RADS 4). She denies a previous history of breast problems or breast surgery. Her family history is negative for breast cancer. Her sister was diagnosed with ovarian cancer the age of 18. She underwent chemotherapy in [place] for this. She denied any palpable mass, skin change, nipple discharge or enlarged lymph nodes. She is 2 para 2 with a 23-year-old daughter and 16-year-old son. Menarche was at 12 years old. She is premenopausal. Ultrasound-guided needle core which revealed a cellular spindle cell proliferation with smooth muscle differentiation. Wider excision of the entire lesion was recommended for more definitive characterization. A left breast lumpectomy with localizer was performed on 02/03/2025. Pathology confirmed a spindle cell proliferation with negative margins. Findings were negative for malignancy. Close follow-up was recommended to assure no recurrence. She reports soreness below the breast in the chest wall. The previous redness near the incision has improved. [facility] Medical History Obesity Hypertension Surgical History History of lumpectomy of left breast (02/03/25) History of laparoscopic cholecystectomy (09/06/22) H/O section Family History Mother Hypertension Hypercholesterolemia Migraine Sister Ovarian cancer Social History Housing: House Alcohol intake: current Alcohol intake frequency: holidays/special occasions only Comment: counts correct Patient Tobacco Use Status: Never used Tobacco e-Cigarette/Vaping Use: Never Used service: No Current occupational status: employed Cognitive needs: No Hearing needs: No Vision needs: Yes (reading glassses) Female Reproductive History Menstrual Age of Menarche: 12 Physical Exam Vital Signs: Last Vital Signs BP 120/72 02/21/25 09:36 BMI result Body Mass Index 24.6 Const General: cooperative and no acute distress Nutritional Appearance: well nourished Orientation/consciousness: patient oriented x3 Limitations: no limitations Chest Other: Incision in the left breast is clean and intact. The previous erythema is now resolved in the incision is clean and intact. There is tenderness in the lower chest wall away from the breast. No palpable masses appreciated. This may be related to underlying inflammation from the surgical procedure. 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 No malignancy was identified. We discussed close follow-up to assess for recurrence disease. The patient expressed understanding agrees with the plan. She will follow up in 3 months, sooner PRN. Coding Level of Care Code Global (66632) Diagnoses Abnormal mammogram of left breast R92.8
[2025-02-21 09:36] VITALS: BP 120/72; BMI 24.6
--- OUTSIDE RECORDS SUMMARY | 2025-02-21 10:14 | XMS_ITS | Patient Health Record ---
Author Organization [facility] Address [address] [place] [address] Care Team Providers Care Stack Matcher Name Role Phone KLEVER BUTLER Unavailable [phone] Allergies No Known Allergies Reason For Referral [...] Status W/U Status Risk Notes Problem Hypothyroidism (75947407) Hypothyroidism, unspecified (E03.9) Active confirmed Problem Adult health examination (261442879) Encounter for general adult medical examination without abnormal findings (Z00.00) Active confirmed Problem Disease of blood AND/OR blood forming organ (73383670) Encounter for screening for diseases of the blood and blood-forming organs and certain disorders involving the immune mechanism (Z13.0) Active confirmed Problem Diabetes mellitus screening (378541343) Encounter for screening for diabetes mellitus (Z13.1) Active confirmed Problem Essential hypertension (51915929) Hypertension, unspecified type (I10) Active confirmed Problem Body mass index 25-29 - overweight (962221569) BMI 25.0-25.9,adult (Z68.25) Active confirmed Problem Vitamin B>12< deficiency anaemia (74813608) Anemia due to vitamin B12 deficiency, unspecified B12 deficiency type (D51.9) Active confirmed Problem BMI 25-29 - overweight (393111126) BMI 27.0-27.9,adult (Z68.27) Active confirmed Problem Screening for cardiovascular system disease (495280239) Screening for cardiovascular condition (Z13.6) Active confirmed Problem Obesity (511364625) Obesity due to excess calories without serious [...] Insured Coverage Start Date Coverage End Date [facility] [address] [place] [address] [phone] [id number] CAMRYN BARROW Self - patient is the insured Medications Administered Medication Instructions Date of Administration Dosage Notes MICC B12 INJECTION 01/16/2023 MICC B12 INJECTION 01/23/2023 MICC B12 INJECTION 03/15/2023 Semaglutide 01/16/2023 sema 0.25mg Semaglutide 01/23/2023 0.25 mg LLQ SQ Semaglutide 02/07/2023 lot# [id number] 0.25mg Semaglutide 02/13/2023 0.25 mg R tricep SQ Semaglutide 03/15/2023 0.5 mg LRQ SQ Semaglutide 03/22/2023 lot#[id number] 0.5mg Semaglutide 04/05/2023 Semaglutide 04/12/2023 1 Semaglutide 04/19/2023 1.0 mg R tricep SQ Semaglutide 04/26/2023 1 mL Semaglutide 05/03/2023 1.0 mg LLQ SQ Semaglutide 05/10/2023 1 mg lot#[id number] 1mg Semaglutide 05/24/2023 Semaglutide 07/12/2023 1 Medical (General) History Medical History History ICD Code hypertension Hypothyroidism overweight Surgical History Surgery Date(Month/Year) gallbladder 09/09/2022 Hospitalization History Reason Date(Month/Year) SAME SURGICAL
--- OUTSIDE RECORDS SUMMARY | 2025-02-21 10:14 | XMS_ITS | Clinical Summary ---
Author Organization [facility] it Address [address] [place] [address] Care Team Providers Care Logging Worker Name Role Phone Dante Gary MD Primary Care Provider [phone] Social History Tobacco Use Types Packs/Day Years [...] age to complete this topic Care Teams Logging Worker Relationship Specialty Start Date End Date Dante Gary MD [address] [place] [address] Dr Nichole [place] PCP - General Internal Medicine 10/02/21
== END 2025-02-21 09:46 | disposition home or self-care (01) ==
LOC: HO.HGS 09:27
PROVIDERS: PCP Internal Medicine; Visit Provider Surgery
DX: R92.8 Other abnormal and inconclusive findings on diagnostic imaging of breast (principal)
CPT/HCPCS: 99024

== ENCOUNTER 2025-05-23 10:03 | Outpatient (AMB) | payer BC, SELFPAY ==
[2025-05-23 10:11] VITALS: BP 131/85; PULSE 88; BMI 25.7
--- NOTE | 2025-05-23 10:11 | MHC.OFFVIS ---
Vital Signs 05/23/25 10:11 Height 5 ft 4 in Weight 150 lb BMI 25.7 BP 131/85 Blood Pressure Location Rt brachial Position Sitting Pulse 88 Intake Visit Reasons: 3mth fu/v lumpectomy w/ localizer Intake Note: Patient is seen in office for 3 month follow up visit, breast exam. Pt c/o: no concerns. Tenderness at lumpectomy site. Reports no changes in medical hx since last visit. 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 A screening mammogram performed on 11/25/2024 with follow-up additional images and ultrasound performed on 12/17/2024 which reveal a 1.1 x 0.6 x 1.0 cm hypoechoic solid mass in the 2 o'clock position, 8 cm from the nipple. No internal vascularity was demonstrated with color Doppler evaluation. No enlarged lymph nodes were noted in the axilla. Findings were felt to be suspicious for malignancy and ultrasound-guided core biopsy was recommended (BI-RADS 4). Her family history is negative for breast cancer. Her sister was diagnosed with ovarian cancer the age of 18. She underwent chemotherapy in [facility] for this. She is 2 para 2. Menarche was at 12 years old. Ultrasound-guided needle core which revealed a cellular spindle cell proliferation with smooth muscle differentiation. Wider excision of the entire lesion was recommended for more definitive characterization. A left breast lumpectomy with localizer was performed on 02/03/2025. Pathology confirmed a spindle cell proliferation with negative margins. Findings were negative for malignancy. Close follow-up was recommended to assure no recurrence. Since the surgery she reports bilateral breast pain but denies any new palpable lumps. She is scheduled for an annual mammogram on 12/01/2025. [facility] Medical History Obesity Hypertension Surgical History History of lumpectomy of left breast (02/03/25) History of laparoscopic cholecystectomy (09/06/22) H/O section Family History Mother Hypertension Hypercholesterolemia Migraine Sister Ovarian cancer Social History Housing: House Alcohol intake: current Alcohol intake frequency: holidays/special occasions only Comment: counts correct Patient Tobacco Use Status: Never used Tobacco e-Cigarette/Vaping Use: Never Used service: No Current occupational status: employed Cognitive needs: No Hearing needs: No Vision needs: Yes (reading glassses) Female Reproductive History Menstrual Age of Menarche: 12 Review of Systems Const All systems reviewed & are unremarkable except as noted in HPI and below Physical Exam Vital Signs: Last Vital Signs Pulse 88 05/23/25 10:11 BP 131/85 05/23/25 10:11 BMI result Body Mass Index 25.7 Const General: cooperative and no acute distress Nutritional Appearance: well nourished Orientation/consciousness: patient oriented x3 Limitations: no limitations Chest Other: Right breast: No skin changes, nipple discharge, palpable mass, or enlarged lymph nodes. She does have diffuse tenderness involving all quadrants. Left breast: Well-healed incision in the upper outer quadrant, no new skin change, nipple discharge, palpable mass or enlarged lymph nodes. No evidence of recurrence of the spindle cell proliferation. Chest/axillae images:  1. Incision upper outer quadrant left breast Resp Effort & Inspection: normal respiratory effort, no audible wheezes, no cough and no respiratory distress GI Inspection: Yes normal to inspection Skin Other: Warm, dry, no rash Neuro General: patient oriented x3 Extrem General: Yes no clubbing, cyanosis or edema Assessment & Plan Assessment & Plan (1) Benign tumor of breast: Code(s): D24.9 - Benign neoplasm of unspecified breast Category: Medical Qualifiers: Laterality: left Qualified Code(s): D24.2 - Benign neoplasm of left breast Plan 45-year-old female patient returning for follow-up breast examination after recently diagnosed with a spindle cell proliferation of the left breast upper outer quadrant. Close follow-up is recommended. Examination today revealed no suspicious findings in either breast. She will be due for her mammogram in November 2025. I recommended follow-up examination in 6 months. She is welcome to call sooner for any new concerns. Coding Level of Care Code Est Pt Level 3 (36315) Add On Problem Visit Only Diagnoses Benign neoplasm of left breast D24.2 Laterality: left
--- OUTSIDE RECORDS SUMMARY | 2025-05-23 11:16 | XMS_ITS | Continuity of Care Document ---
Author Organization [facility] [address] [facility] [address] [place] [address] Phone [phone] Social History Type Date Description Comments Sex Female Sex Unknown Medical Devices Description No Information Available Encounters Description No Information Available Assessments Description No Information Available Plan of Treatment No Information Available Functional Status Description No Information Available Mental Status Description No Information Available Referrals Description No Information Available
--- OUTSIDE RECORDS SUMMARY | 2025-05-23 11:16 | XMS_ITS | Patient Health Record ---
Author Organization [facility] [address] Address [address] [place] [address] Care Team Providers Care Radon Inspector Name Role Phone KLEVER BUTLER Unavailable [phone] Allergies No Known Allergies Reason For Referral No Information Medications Medication SIG (Take, Route, Frequency, Duration) Notes Start Date End Date Status hydroCHLOROthiazide 25 MG Tablet 1 tablet in the morning Orally Once a day Active Zepbound 2.5 MG/0.5ML Solution Auto-injector 0.5ML Subcutaneous once weekly; Duration: 30 days 07/03/2023 Active Levothyroxine Sodium 88 MCG Tablet 1 tablet in the morning on an empty stomach Orally Once a day Active Wegovy 1 MG/0.5ML Solution Auto-injector inject 1 mg Subcutaneous once a week; Duration: 30 days [place] approved, medication is covered by pts insurance 07/11/2023 Active Social History Tobacco Use: Social History Observation Description Date Details (start date - stop date) Never Smoker NA - NA Social History Tobacco Use: Social Info Question Answer Notes Tobacco Use/Smoking Are you a nonsmoker Problems Problem Type SNOMED Code ICD Code Onset Dates Problem Status W/U Status Risk Notes Problem Hypothyroidism (11007251) Hypothyroidism, unspecified (E03.9) Active confirmed Problem Adult health examination (290470620) Encounter for general adult medical examination without abnormal findings (Z00.00) Active confirmed Problem Disease of blood AND/OR blood forming organ (44445235) Encounter for screening for diseases of the blood and blood-forming organs and certain disorders involving the immune mechanism (Z13.0) Active confirmed Problem Diabetes mellitus screening (294334940) Encounter for screening for diabetes mellitus (Z13.1) Active confirmed Problem Essential hypertension (53990886) Hypertension, unspecified type (I10) Active confirmed Problem Body mass index 25-29 - overweight (502139383) BMI 25.0-25.9,adult (Z68.25) Active confirmed Problem Vitamin B>12< deficiency anaemia (27455604) Anemia due to vitamin B12 deficiency, unspecified B12 deficiency type (D51.9) Active confirmed Problem BMI 25-29 - overweight (506688722) BMI 27.0-27.9,adult (Z68.27) Active confirmed Problem Screening for cardiovascular system disease (900969518) Screening for cardiovascular condition (Z13.6) Active confirmed Problem Obesity (337965343) Obesity due to excess calories without serious [...] Date [facility] [address] [place] [address] [phone] [id number] CAMRYN BARROW Self - patient is the insured Medications Administered Medication Instructions Date of Administration Dosage Notes MICC B12 INJECTION 01/16/2023 MICC B12 INJECTION 01/23/2023 MICC B12 INJECTION 03/15/2023 Semaglutide 01/16/2023 sema 0.25mg Semaglutide 01/23/2023 0.25 mg LLQ SQ Semaglutide 02/07/2023 lot# [id number] 0.25mg Semaglutide 02/13/2023 0.25 mg R tricep SQ Semaglutide 03/15/2023 0.5 mg LRQ SQ Semaglutide 03/22/2023 lot#[id number] 0.5mg Semaglutide 04/05/2023 Semaglutide 04/12/2023 1 Semaglutide 04/19/2023 1.0 mg R tricep SQ Semaglutide 04/26/2023 1 mL Semaglutide 05/03/2023 1.0 mg LLQ SQ Semaglutide 05/10/2023 1 mg lot#[id number] 1mg Semaglutide 05/24/2023 Semaglutide 07/12/2023 1 Medical (General) History Medical History History ICD Code hypertension Hypothyroidism overweight Surgical History Surgery Date(Month/Year) gallbladder 09/09/2022 Hospitalization History Reason Date(Month/Year) SAME SURGICAL
--- OUTSIDE RECORDS SUMMARY | 2025-05-23 11:16 | XMS_ITS | Clinical Summary ---
Author Organization [facility] ity Address [address] [place] [address] Care Team Providers Care Film Waxer Name Role Phone Dante Gary MD Primary Care Provider [phone] Social History Tobacco Use Types Packs/Day Years [...] Smear 02/27/2000 Depression Screening 05/26/2024 COVID-19 Vaccine (1 - 2024-2 6 season) 2025 Influenza Vaccine (#1) 2025 RSV Immunization Adult Patie nts (1 - 1-dose 75+ series) 2054 HIB Vaccines Aged Out No longer eligi [...] age to complete this topic Care Teams Film Waxer Relationship Specialty Start Date End Date Dante Gary MD [address] [place] [address] Dr Nichole [place] PCP - General Internal Medicine 10/02/21
== END 2025-05-23 10:21 | disposition home or self-care (01) ==
LOC: HO.HGS 10:04
PROVIDERS: PCP Internal Medicine; Visit Provider Surgery
DX: D24.2 Benign neoplasm of left breast (principal)
CPT/HCPCS: 99213